=== PATIENT | female | born 1990 | race Caucasian/White ===

== ENCOUNTER 2018-11-29 17:43 | Inpatient (IN) ==
[2018-11-29] MEDS ORDERED: IOPAMIDOL 100 ML BOTTLE IV ONE (17:44)
[2018-11-29 18:27] LABS: Basophils # (Auto) 0 K/mcL (0.0-0.3); Basophils % (Auto) 0.3 % (0.0-2.0); Eosinophils # (Auto) 0.1 K/mcL (0.0-0.7); Eosinophils % (Auto) 0.7 % (0.0-7.0); Granulocytes % (Auto) 78.1 % (38.0-78.0); Lymphocytes # (Auto) 1.3 K/mcL (1.5-4.8); Lymphocytes % (Auto) 14.1 % (15.5-49.0); Mean Cell Volume 86.3 fL (80.0-100.0); Mean Corpuscular HGB Conc 33.9 g/dL (31.0-36.0); Monocytes # (Auto) 0.6 K/mcL (0.1-0.9); Monocytes % (Auto) 6.8 % (1.0-12.0); Platelet Count 281 K/mcL (140-440); RBC 4.23 M/mcL (4.00-5.20); Red Cell Distribution Width 12.8 % (11.5-14.5)
[2018-11-29] MEDS ORDERED: LACTATED RINGERS 1,000 ML IV ONE (18:41)
[2018-11-29 18:58] LABS: C-Reactive Protein 43.4 mg/dl (0.0-0.8)
[2018-11-29 19:00] LABS: ALT/SGPT 156 U/l (0-40); Albumin 3.6 gm/dL (3.2-5.2); Alkaline Phosphatase 139 U/L (39-117); Blood Urea Nitrogen 5 mg/dl (6-20)
[2018-11-29] MEDS ORDERED: 0.9 % SODIUM CHLORIDE 1,000 ML IV SCH (19:00)
[2018-11-29] MEDS ORDERED: HYDROmorphone 2 MG/ML VIAL IV PRN ×4 (19:02→23:58)
[2018-11-29] MEDS ORDERED: PIPERACILLIN SODIUM/TAZOBACTAM 3.375 GM in DEXTROSE 5% IN WATER 50 ML IV ONE (19:08)
--- NOTE | 2018-11-29 19:11 | Emergency Department Note ---
Abdominal Pain HPI - General Chief Complaint: Abdominal Pain Stated Complaint: right lower abd pain Time Seen by Provider: 11/29/18 18:14 Source: patient Mode of arrival: ambulatory Limitations: no limitations - History of Present Illness HPI Narrative: This pleasant 27-year-old female, 5 months , presented to the emergency room several days ago and has had ultrasound that was negative and several lab tests that were unremarkable. She presents today with persistence of pain into further her evaluation. Started with pain that was dull and achy 5 days ago primarily in the right upper quadrant. She also vomited with bilious vomiting in the emesis seem to go away. Last night she woke up with right lower quadrant pain that was quite severe and now seems to be a little bit better. She has not been able to eat or drink for a couple of days. Temperature earlier was 99.7. She has felt hot a lot and some sweatiness. REVIEW OF SYSTEMS: Denies chest pain, cough, shortness of breath. Has some nausea. No vomiting or diarrhea. Has not had a bowel movement for 5 days but has not eaten well. No dysuria, frequency or urgency. No headaches. Some lightheadedness. No anxiety or depression. Feels fatigued. 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 Denies: marijuana Physical Exam Limitations: no limitations General appearance: alert, in no apparent distress Head: atraumatic, normocephalic Eye: Present: EOMI Neck: Present: trachea midline. Absent: lymphadenopathy, thyromegaly Chest: Present: symmetric chest wall rise Respiratory: Present: normal lung sounds bilaterally. Absent: respiratory distress, wheezes, stridor, accessory muscle use, prolonged expiratory phase Cardiovascular: Present: regular rate, normal rhythm. Absent: systolic murmur, diastolic murmur Abdominal: Present: soft, tenderness, guarding, rebound (Both direct and contralateral radiating or stimulating pain into the right lower quadrant area.) , tenderness at McBurney's Point, other (No tenderness with femur hyperextension except trace to mild and with internal and external rotation of a flexed femur. Heel tap is negative.). Absent: distention, rigidity Abdominal tenderness: Present: RLQ, moderate Extremities: Absent: pedal edema, pretibial edema, calf tenderness Neurological: Present: alert, oriented X3 Psychiatric: Present: normal affect, normal mood Skin: Present: warm, dry Course Course Narrative: CT scan with contrast ordered as well as labs. Vital Signs Temperature 99.7 F H 11/29/18 17:44 Pulse Rate 124 H 11/29/18 17:44 Respiratory Rate 20 11/29/18 17:44 Blood Pressure 116/62 11/29/18 17:44 Pulse Oximetry (%) 97 11/29/18 17:44 Temperature 99.7 F H 11/29/18 17:44 Pulse Rate 124 H 11/29/18 17:44 Respiratory Rate 20 11/29/18 17:44 Blood Pressure 131/88 11/29/18 19:01 Pulse Oximetry (%) 97 11/29/18 17:44 Abdominal Pain - Lab Data Lab results reviewed: Yes I reviewed the patient's lab results. Result diagrams: 11/29/18 18:02 11/29/18 18:02 Lab Results 11/29/18 11/29/18 11/29/18 Range/Units 18:02 18:02 18:14 WBC 9.0 (4.5-11.0) K/mcL RBC 4.23 (4.00-5.20) M/mcL Hgb 12.4 (12.0-15.0) g/dL Hct 36.4 (36.0-48.0) % MCV 86.3 (80.0-100.0) fL MCH 29.2 (26.0-34.0) pg MCHC 33.9 (31.0-36.0) g/dL RDW 12.8 (11.5-14.5) % Plt Count 281 (140-440) K/mcL MPV 7.9 (7.4-10.4) fL Gran % 78.1 H (38.0-78.0) % Lymph % (Auto) 14.1 L (15.5-49.0) % [place] % (Auto) 6.8 (1.0-12.0) % Eos % (Auto) 0.7 (0.0-7.0) % Baso % (Auto) 0.3 (0.0-2.0) % Gran # 7.0 (1.8-8.0) K/mcL Lymph # (Auto) 1.3 L (1.5-4.8) K/mcL [place] # (Auto) 0.6 (0.1-0.9) K/mcL Eos # (Auto) 0.1 (0.0-0.7) K/mcL Baso # (Auto) 0 (0.0-0.3) K/mcL Sodium 141 (133-145) mmol/L Potassium 3.1 L (3.3-5.1) mmol/L Chloride 101 (96-108) mmol/L Carbon Dioxide 25 (22-30) mmol/L Anion Gap 15.0 (8-16) BUN 5 L (6-20) mg/dl Creatinine 0.8 (0.6-1.1) mg/dl GFR Calculation 102 Glucose 105 (70-105) mg/dL Calcium 9.2 (8.6-10.4) mg/dl Total Bilirubin 0.7 (0.0-1.0) mg/dL AST 85 H (0-37) U/l ALT 156 H (0-40) U/l Alkaline Phosphatase 139 H (39-117) U/L C-Reactive Protein 43.4 H (0.0-0.8) mg/dl Total Protein 7.3 (5.9-8.4) gm/dL Albumin 3.6 (3.2-5.2) gm/dL Globulin 3.7 (2.2-3.7) gm/dL Albumin/Globulin Ratio 1.0 (1.0-2.3) Lipase 22 (7-60) U/L - Radiology Data Radiology results reviewed: Yes I reviewed the patient's radiology results. Disposition Pt seen by SOLIDWORKS DESIGNER/PA only: No Clinical Impression: Acute appendicitis with appendiceal abscess Summary: I spoke with Dr. Salvador, general surgeon, who was in the emergency room and willing to see patient. Patient made aware and is appreciative and willing. Disposition: Xfer As Inpt ([facility]) Condition: Fair Referrals: Vidal Gavin ARNP [Primary Care Provider] -
--- NOTE | 2018-11-29 19:15 | General Surg History&Physical ---
History of Present Illness Patient information: Note initiated : 11/29/18 at 7:11 pm Service Date, if different from initiated Date: [] Patient: Naomi Corrales 27 y/o F admitted on for right lower abd pain. Chief Complaint: [] Chief complaint: Abdominal pain HPI: Ms. Corrales is a 27 year old Female who complains of 5 day history of abdominal pain, initially right upper quadrant, 6-8 /10 nonradiating. She subsequently underwent an ultrasound on 11/25/18 which showed a normal gallbladder and appendix. Her pain increased since yesterday and then the pain suddenly improved today. She undewent a CT scan today which showed an acutely perforated appendix. She is currently breast feeding having underwent a c section 5 months ago. Last meal today at 4pm. Review of Systems - Constitutional fever(s) (felt warm), no anorexia, no chills, no fatigue, no night sweats - EENT Nose, mouth and throat: no nasal congestion - Breasts other (lactating) - Cardiovascular no chest pain, no dyspnea - Respiratory no hemoptysis, no wheezing - Gastrointestinal abdominal pain, nausea, no vomiting - Genitourinary Genitourinary: no dysuria - Integumentary no rash - Neurological headache(s) - Psychiatric no depression Past History Past medical history: Denies any past medical history Past surgical history: 2018 Past family history: denies any family history of cancers orDM Past social history: Denies nicotine use. Denies ETOH or recreational drug use Medications and Allergies Home Medications Medication Instructions Recorded Confirmed Type HYDROmorphone HCL [Dilaudid] 2 mg PO Q4-6HP PRN #20 tab 11/25/18 11/29/18 Rx Ondansetron HCl [Zofran ODT] 4 mg SL Q4-6HP PRN #20 tab 11/25/18 11/29/18 Rx Allergies Allergy/AdvReac Type Severity Reaction Status Date / Time hydrocodone Allergy Intermediate Facial Verified 11/29/18 17:47 Swelling Exam Temp Pulse Resp BP Pulse Ox 99.7 F H 124 H 20 131/88 97 11/29/18 17:44 11/29/18 17:44 11/29/18 17:44 11/29/18 19:01 11/29/18 17:44 - General physical appearance well nourished, no distress - Eyes PERRL, normal ocular movement - ENT normal mucosa - Head Head exam IM: Present: atraumatic, normal inspection - Neck trachea midline - Cardiovascular Cardiovascular exam IM: Present: normal rate and rhythm - Respiratory clear to auscultation - Abdomen Abdomen: Present: soft (+ TTP RLQ. + Rosving. Non distended no guarding) - Genitourinary Present: normal external genitalia - Rectum Rectum: Present: other (exam deferred) - Integumentary Present: no rash - Neurologic Present: normal sensation - Musculoskeletal Present: normal gait - Psychiatric Present: oriented to time, oriented to person, oriented to place Results - Results CT scan - abdomen: image reviewed (Enlarged appendix with fecolith, with fat stranding possible perforation. Official read to follow) Assessment and Plan (1) Acute appendicitis 27 yo female with acute appendicits possibly perforated acutely Admit to surgical service. Zosyn. IV hydration OR for laparoscopic Status: Acute
[2018-11-29 19:31] LABS: Appearance,Urine CLEAR; Bacteria,Urine 0 /hpf (0); Bilirubin,Urine NEG (NEG); Color,Urine YELLOW; Glucose,Urine (UA) NEGATIVE (NEG); Leukocyte Esterase,Urine NEG /uL (NEG); Mucus,Urine FEW /hpf (0); Protein,Urine NEG (NEG); Specific Gravity,Urine 1.035 (1.000-1.035); Urine Blood 0.03 mg/dL (<0.03); Urine RBC 0 /hpf (0-1); Urine Squamous Epithelial Cell 1 /hpf (0-4); Urine Transitional Epi Cells < 1 /hpf (0-2); Urine WBC 6 /hpf (0-4)
[2018-11-29] MEDS ORDERED: KETOROLAC 30 MG/ML VIAL ONE (19:53)
[2018-11-29] MEDS ORDERED: NEOSTIGMINE 1 MG/ML VIAL ONE (19:53)
[2018-11-29] MEDS ORDERED: HYDROmorphone 2 MG/ML VIAL ONE (19:53)
[2018-11-29] MEDS ORDERED: SUCCINYLCHOLINE 20 MG/ML ML IV ONE (19:53)
[2018-11-29] MEDS ORDERED: fentaNYL 100 MCG/2 ML VIAL IV ONE (19:53)
[2018-11-29] MEDS ORDERED: KETAMINE 10 MG/ML ML ONE (19:53)
[2018-11-29] MEDS ORDERED: ROCURONIUM 10 MG/ML ML IV ONE (19:53)
[2018-11-29] MEDS ORDERED: PHENYLEPHRINE 10 MG/ML VIAL ONE (19:53)
[2018-11-29] MEDS ORDERED: LIDOCAINE HCL/PF 100 MG/5 ML SYRINGE IV ONE (19:53)
[2018-11-29] MEDS ORDERED: PROPOFOL 200 MG/20 ML VIAL IV ONE (19:53)
[2018-11-29] MEDS ORDERED: DEXAMETHASONE 10 MG/ML VIAL ONE (19:53)
[2018-11-29] MEDS ORDERED: GLYCOPYRROLATE 0.2 MG/ML VIAL IV ONE (19:53)
[2018-11-29] MEDS ORDERED: MIDAZOLAM 5 MG/5 ML VIAL ONE (19:53)
[2018-11-29] MEDS ORDERED: ONDANSETRON 4 MG/2 ML VIAL ONE ×2 (19:53→23:27)
[2018-11-29] MEDS ORDERED: BUPIVACAINE W/EPI 0.5% 50 ML VIAL IJ ONE (20:10)
[2018-11-29] MEDS ORDERED: METHOCARBAMOL 1,000 MG/10 ML VIAL IV PRN ×2 (20:38→22:07)
[2018-11-29] MEDS ORDERED: IPRATROPIUM/ALBUTEROL 3 ML AMPUL.NEB NEB PRN ×2 (20:38→22:07)
[2018-11-29] MEDS ORDERED: FLUMAZENIL 0.1 MG/ML ML IV PRN ×2 (20:38→22:07)
[2018-11-29] MEDS ORDERED: PROMETHAZINE 25 MG/ML VIAL IV PRN ×2 (20:38→22:07)
[2018-11-29] MEDS ORDERED: BENZOCAINE/MENTHOL 1 LOZENGE PO PRN ×3 (20:38→23:58)
[2018-11-29] MEDS ORDERED: MEPERIDINE 50 MG/ML INJECTION IM PRN ×2 (20:38→22:07)
[2018-11-29] MEDS ORDERED: LACTATED RINGERS 250 ML IV PRN ×2 (20:38→22:07)
[2018-11-29] MEDS ORDERED: ACETAMINOPHEN 1,000 MG/100 ML BOTTLE IV ONE ×2 (20:38→22:07)
[2018-11-29] MEDS ORDERED: PROMETHAZINE 25 MG/ML VIAL IM PRN ×2 (20:38→22:07)
[2018-11-29] MEDS ORDERED: fentaNYL 100 MCG/2 ML VIAL IV PRN ×2 (20:38→22:07)
[2018-11-29] MEDS ORDERED: NALOXONE HCL 0.4 MG/ML VIAL IV PRN ×3 (20:38→23:58)
[2018-11-29] MEDS ORDERED: ONDANSETRON 4 MG/2 ML VIAL IV PRN ×3 (20:38→23:58)
[2018-11-29] MEDS ORDERED: MEPERIDINE 25 MG/ML SYRINGE IV PRN ×2 (20:38→22:07)
[2018-11-29] MEDS ORDERED: LACTATED RINGERS 1,000 ML IV SCH ×3 (20:45→22:15)
[2018-11-29] MEDS ORDERED: FAMOTIDINE/PF 20 MG/2 ML VIAL IV SCH (21:00)
[2018-11-29] MEDS ORDERED: 0.9 % SODIUM CHLORIDE 10 ML SYRINGE IV SCH (22:00)
--- NOTE | 2018-11-29 23:01 | General Surgery Procedure Note ---
Date of procedure: Note initiated : 11/29/18 at 10:58 pm Service Date, if different from initiated Date: [] Pre-op diagnosis: Acute appendicitis Post-op diagnosis: other (Acute perforated purulent appendicits with localized peritonitis) Procedure: Laparoscopic converted to open appendectomy Findings: Retrocecal Perforated appendix with purulence and localized peritonitis Anesthesia: GETA Surgeon: River Salvador Estimated blood loss: 20 (20 mL) Pathology: other (Appendix, apendiceal fluid culture) Description of procedure: See operative report for details Condition: other (guarded) Disposition: ICU
[2018-11-29] MEDS ORDERED: MEPERIDINE 50 MG/ML INJECTION ONE (23:33)
[2018-11-29] MEDS ORDERED: PROMETHAZINE 25 MG/ML VIAL ONE (23:34)
[2018-11-29] MEDS ORDERED: HYDROmorphone PCA 30 MG/30 ML PCA.VIAL IV ONE (23:40)
--- NOTE | 2018-11-29 23:56 | Operative Note ---
Pre-op diagnosis: Acute appendicitis Post-op diagnosis: perforated purulent appendicitis with localized peritonitis Procedure: Laparoscopic Appendectomy converted to open Surgeon: River Salvador Lead Applications Developer: No Anesthesia: GETA Findings: Perforated appendicitis with localized peritonitis Specimens Removed/Pathology: Appendix, intraabdominal fluid culture Estimated blood loss (cc): 20 mL Complications: none INDICATION: This a 27 yo female who complains of 5 day history of abdominal pain , initially right upper quadrant, 6-8 /10 nonradiating. She subsequently underwent an ultrasound on 11/25/18 which showed a normal gallbladder and normal appendix. Her pain increased since yesterday and then the pain suddenly improved today. She undewent a CT scan today which showed an acutely perforated appendix. The risks and benefits of the procedure were discussed in layman's terms with the patient including but not limited to: risk of bleeding, infection , bowel injury requiring a bigger surgery, injury to other organs, future hernia 's or scars, skin infections or intrabdominal infections including abscess requiring drainage. All questions were answered and consent was obtained. DESCRIPTION OF PROCEDURE: The patient was brought to the operating room and placed supine on the operating table. After undergoing anesthesia, a eastman was placed and perioperative antibiotics had been given. Her abdomen was prepped and draped in a standard sterile fashion using DuraPrep. A 5 mm Optiview trocar was placed in the supraumbilical position under direct vision. Trocars were then placed: A 12mm left lower quadrant, a 5mm right lower quadrant and a under direct vision without any signs of injury to organs. There appeared to be a localized peritonitis with the appendix retrocecal. There was a small pocket of purulence in the right pericolic gutter walled off. The appendix base was mobilized, however the tip was not identified so the procedure was converted to open with an approximately 8 cm right lower quadrant horizontal skin incision made with a #15 blade. The incision was carried down to the fascia where a Metzenbaum scissor was used to cut the fascia the muscle was split between fibers. using mets the abdomen was entered and the peritoneum incision lengthened while protecting bowel. The cecum was identified and eviscerated to inspect the appendix. The appendix was retrocecal and a small perforation on the cecum was noted near the tip of the appendix. An Endoloop was placed on the appendix followed by the white load of the laparoscopic stapler, and a ligasure was used on the mesoappendix. Cultures were obtained. The appendix appeared to have a large perforation and was passed off the field. The Cecum and terminal ileum was inspected and some portions were noted to have some friability and a small serosal tear noted on the terminal ileum which was repaired with 3-0 silk sutures. The posterior cecum was inspected and the small perforation was repaired with double layer of 3-0 silk lambert sutures, then tested under water with no air bubbles noted. The cecum was placed back into the abdomen, Copious irrigation was performed over 5 liters and suctioned dry. Two Roel drains were placed, one in the pelvis and one along the right parietal wall and tied to the skin with nylon. The left trocar site was closed with 0-vicryl suture. The peritoneum was closed with 0-vicryl, followed by a fascial closure of 0-loop PDS , then vicryl for interrupted subcutaneous sutures. The abdomen was washed and dried and the left port site and then the right surgical site were loosely approximated with danielle and packed with packing. Sterile gauze dressing & tegaderm were used for dressing. All counts correct. The patient tolerated the procedure well, and extubated and sent to PACU
[2018-11-29] MEDS ORDERED: HYDROmorphone PCA 30 MG/30 ML PCA.VIAL IV PRN (23:58)
[2018-11-30] MEDS ORDERED: PIPERACILLIN SODIUM/TAZOBACTAM 3.375 GM in DEXTROSE 5% IN WATER 50 ML IV SCH
[2018-11-30] MEDS: LACTATED RINGERS 1,000 ML IV SCH ×5 (00:13→21:27)
[2018-11-30] MEDS ORDERED: POTASSIUM CHLORIDE 40 MEQ in DEXTROSE 5% IN WATER 500 ML IV ONE (00:30)
[2018-11-30] MEDS: PIPERACILLIN SODIUM/TAZOBACTAM 3.375 GM in DEXTROSE 5% IN WATER 50 ML IV SCH ×4 (00:45→17:39)
[2018-11-30] MEDS ORDERED: ENOXAPARIN 40 MG/0.4 ML SYRINGE ONE (01:29)
[2018-11-30] MEDS: ENOXAPARIN 40 MG/0.4 ML SYRINGE SQ SCH ×2 (01:30→09:11)
[2018-11-30] MEDS ORDERED: HYDROmorphone 2 MG/ML VIAL ONE ×2 (04:13→06:56)
[2018-11-30 05:47] LABS: Basophils # (Auto) 0 K/mcL (0.0-0.3); Basophils % (Auto) 0 % (0.0-2.0); Eosinophils # (Auto) 0 K/mcL (0.0-0.7); Eosinophils % (Auto) 0.1 % (0.0-7.0); Granulocytes % (Auto) 86.5 % (38.0-78.0); Lymphocytes # (Auto) 0.3 K/mcL (1.5-4.8); Lymphocytes % (Auto) 4.5 % (15.5-49.0); Mean Cell Volume 85.3 fL (80.0-100.0); Mean Corpuscular HGB Conc 34.8 g/dL (31.0-36.0); Monocytes # (Auto) 0.5 K/mcL (0.1-0.9); Monocytes % (Auto) 8.9 % (1.0-12.0); Platelet Count 228 K/mcL (140-440); Red Cell Distribution Width 12.7 % (11.5-14.5)
[2018-11-30] MEDS: 0.9 % SODIUM CHLORIDE 10 ML SYRINGE IV SCH ×3 (06:12→21:32)
[2018-11-30 06:36] LABS: Blood Urea Nitrogen 5 mg/dl (6-20)
[2018-11-30] MEDS: KETOROLAC 15 MG/ML VIAL IV PRN ×3 (07:19→21:50)
[2018-11-30] MEDS ORDERED: ACETAMINOPHEN 1,000 MG/100 ML BOTTLE IV ONE (07:56)
--- NOTE | 2018-11-30 08:05 | General Surgery Progress Note ---
Subjective Patient reports: pain is less (patient seen postop,No current complaints good urine output. CAROLINA Drains serosanguenous. Pain controlled.) Narrative: Note initiated : 11/30/18 at 7:59 am Service Date, if different from initiated Date: [] Patient: Naomi Corrales 27 y/o F admitted on 11/29/18 for right lower abd pain. POST OP NOTE Pertinent ROS: No N/V/D, No F/C minimal abdominal pain currently Objective Temp Pulse Resp BP Pulse Ox 98.9 F 85 18 99/70 96 11/30/18 04:00 11/30/18 06:02 11/30/18 07:30 11/30/18 06:01 11/30/18 06:02 - Additional Data Intake & Output - Last 24 hours: Intake & Output 11/28/18 11/29/18 11/30/18 12/01/18 05:59 05:59 05:59 05:59 Intake Total 3849 / 3849 50 / 50 Output Total 2135 / 2135 Balance 1714 / 1714 50 / 50 Weight 168 lb 14.4 oz - General physical appearance well developed, well nourished, no distress - Eyes normal ocular movement - ENT normal mucosa - Neck trachea midline - Respiratory normal respiratory effort, clear to auscultation - Abdomen soft (Surgical dressings in place. CAROLINA drains functioning. Appropriate TTP post- surgical abdomen) - Integumentary no rash - Neurologic normal sensation - Psychiatric oriented to time, oriented to person, oriented to place - Labs 11/30/18 04:08 11/30/18 04:08 Diabetes panel 11/29/18 11/30/18 Range/Units 18:02 04:08 Sodium 141 140 (133-145) mmol/L Potassium 3.1 L 3.9 (3.3-5.1) mmol/L Chloride 101 103 (96-108) mmol/L Carbon Dioxide 25 24 (22-30) mmol/L BUN 5 L 5 L (6-20) mg/dl Creatinine 0.8 0.6 (0.6-1.1) mg/dl Glucose 105 189 H (70-105) mg/dL Calcium 9.2 8.2 L (8.6-10.4) mg/dl AST 85 H (0-37) U/l ALT 156 H (0-40) U/l Alkaline Phosphatase 139 H (39-117) U/L Total Protein 7.3 (5.9-8.4) gm/dL Albumin 3.6 (3.2-5.2) gm/dL Calcium panel 11/29/18 11/30/18 Range/Units 18:02 04:08 Calcium 9.2 8.2 L (8.6-10.4) mg/dl Phosphorus 5.3 H (2.7-4.5) mg/dL Albumin 3.6 (3.2-5.2) gm/dL Pituitary panel 11/29/18 11/30/18 Range/Units 18:02 04:08 Sodium 141 140 (133-145) mmol/L Potassium 3.1 L 3.9 (3.3-5.1) mmol/L Chloride 101 103 (96-108) mmol/L Carbon Dioxide 25 24 (22-30) mmol/L BUN 5 L 5 L (6-20) mg/dl Creatinine 0.8 0.6 (0.6-1.1) mg/dl Glucose 105 189 H (70-105) mg/dL Calcium 9.2 8.2 L (8.6-10.4) mg/dl Adrenal panel 11/29/18 11/30/18 Range/Units 18:02 04:08 Sodium 141 140 (133-145) mmol/L Potassium 3.1 L 3.9 (3.3-5.1) mmol/L Chloride 101 103 (96-108) mmol/L Carbon Dioxide 25 24 (22-30) mmol/L BUN 5 L 5 L (6-20) mg/dl Creatinine 0.8 0.6 (0.6-1.1) mg/dl Glucose 105 189 H (70-105) mg/dL Calcium 9.2 8.2 L (8.6-10.4) mg/dl Total Bilirubin 0.7 (0.0-1.0) mg/dL AST 85 H (0-37) U/l ALT 156 H (0-40) U/l Alkaline Phosphatase 139 H (39-117) U/L Total Protein 7.3 (5.9-8.4) gm/dL Albumin 3.6 (3.2-5.2) gm/dL Assessment and Plan (1) Acute appendicitis with perforation, localized peritonitis, and abscess Status: Acute Current Visit: Yes (2) Acute appendicitis Status: Acute Current Visit: Yes (3) Appendicolith Status: Acute Current Visit: Yes - Narrative A/P Narrative: 27 yo female with Perforated purulent acute appendicitis with appendicolith and localized peritonitis Neuro: Continue IV Tylenol and Toradol standing, 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 Cardiovascular: Continuous cardiac monitoring, Pulm: Continue incentive spirometer. O2 2 L NC prn GI: Continue famotidine. Continue Reglan & zofran prn. Continue jps to bulb suction. ID: Continue Zosyn. : Continue Vega for hemodynamic monitoring ENDO: Stable Hemonc: Stable MSK: Stable. Will obtain PT consult FEN: Continue IV Hydration, Multivitamins, am labs, OOB to chair, replace electrolytes prn. Patient to pump and dump breast milk GI Prophylaxis: Protonix DVT Prophylaxis: SCD's lovenox Condition: guarded Disposition: Continue ICU today - Time Spent With Patient Total time spent is greater than 50% in coordination of care (as documented) at patient's floor/unit and/or counseling patient:
[2018-11-30] MEDS ORDERED: MAGNESIUM SULFATE 8.12 MEQ in DEXTROSE 5% IN WATER 50 ML IV ONE (08:17)
--- NOTE | 2018-11-30 08:18 | General Surgery Progress Note ---
Subjective Patient reports: still having pain (patient seen bedside. Pain somewhat controlled with HEAD STOCK OPERATOR dosage adjusted. No Flatus. CAROLINA Drains with serosanguenous output.) Narrative: Note initiated : 11/30/18 at 8:14 am Service Date, if different from initiated Date: [] Patient: Naomi Corrales 27 y/o F admitted on 11/29/18 for right lower abd pain. Chief Complaint: [] Pertinent ROS: No N/V/D, No Flatus, No CP or SOB Objective Temp Pulse Resp BP Pulse Ox 98.9 F 85 18 99/70 96 11/30/18 04:00 11/30/18 06:02 11/30/18 07:30 11/30/18 06:01 11/30/18 06:02 - Additional Data Intake & Output - Last 24 hours: Intake & Output 11/28/18 11/29/18 11/30/18 12/01/18 05:59 05:59 05:59 05:59 Intake Total 3849 / 3849 50 / 50 Output Total 2135 / 2135 45 / 45 Balance 1714 / 1714 5 / 5 Weight 168 lb 14.4 oz - General physical appearance no distress - Eyes normal ocular movement - ENT normal mucosa - Neck trachea midline - Respiratory clear to auscultation - Cardiovascular Cardiovascular exam: Present: normal rate and rhythm - Abdomen soft (Non distended, no rebound or guarding. CAROLINA drains in place functioning serosanguenous output. Appropriate TTP) - Integumentary no rash - Psychiatric oriented to time, oriented to person, oriented to place - Additional Exam No LE edema, Non-TTP - Labs 11/30/18 04:08 11/30/18 04:08 Diabetes panel 11/29/18 11/30/18 Range/Units 18:02 04:08 Sodium 141 140 (133-145) mmol/L Potassium 3.1 L 3.9 (3.3-5.1) mmol/L Chloride 101 103 (96-108) mmol/L Carbon Dioxide 25 24 (22-30) mmol/L BUN 5 L 5 L (6-20) mg/dl Creatinine 0.8 0.6 (0.6-1.1) mg/dl Glucose 105 189 H (70-105) mg/dL Calcium 9.2 8.2 L (8.6-10.4) mg/dl AST 85 H (0-37) U/l ALT 156 H (0-40) U/l Alkaline Phosphatase 139 H (39-117) U/L Total Protein 7.3 (5.9-8.4) gm/dL Albumin 3.6 (3.2-5.2) gm/dL Calcium panel 11/29/18 11/30/18 Range/Units 18:02 04:08 Calcium 9.2 8.2 L (8.6-10.4) mg/dl Phosphorus 5.3 H (2.7-4.5) mg/dL Albumin 3.6 (3.2-5.2) gm/dL Pituitary panel 11/29/18 11/30/18 Range/Units 18:02 04:08 Sodium 141 140 (133-145) mmol/L Potassium 3.1 L 3.9 (3.3-5.1) mmol/L Chloride 101 103 (96-108) mmol/L Carbon Dioxide 25 24 (22-30) mmol/L BUN 5 L 5 L (6-20) mg/dl Creatinine 0.8 0.6 (0.6-1.1) mg/dl Glucose 105 189 H (70-105) mg/dL Calcium 9.2 8.2 L (8.6-10.4) mg/dl Adrenal panel 11/29/18 11/30/18 Range/Units 18:02 04:08 Sodium 141 140 (133-145) mmol/L Potassium 3.1 L 3.9 (3.3-5.1) mmol/L Chloride 101 103 (96-108) mmol/L Carbon Dioxide 25 24 (22-30) mmol/L BUN 5 L 5 L (6-20) mg/dl Creatinine 0.8 0.6 (0.6-1.1) mg/dl Glucose 105 189 H (70-105) mg/dL Calcium 9.2 8.2 L (8.6-10.4) mg/dl Total Bilirubin 0.7 (0.0-1.0) mg/dL AST 85 H (0-37) U/l ALT 156 H (0-40) U/l Alkaline Phosphatase 139 H (39-117) U/L Total Protein 7.3 (5.9-8.4) gm/dL Albumin 3.6 (3.2-5.2) gm/dL Assessment and Plan (1) Acute appendicitis with perforation, localized peritonitis, and abscess Status: Acute Current Visit: Yes (2) Acute appendicitis Status: Acute Current Visit: Yes (3) Appendicolith Status: Acute Current Visit: Yes - Narrative A/P Narrative: A/P Narrative: 27 yo female POD #1 with Perforated purulent acute appendicitis with appendicolith and localized peritonitis Neuro: Continue IV Tylenol and Toradol standing, Dilaudid HEAD STOCK OPERATOR. Cardiovascular: Stable. Continuous cardiac monitoring Pulm: Continue incentive spirometer. O2 2 L NC prn GI: Continue famotidine. Continue Reglan & zofran prn. Continue jps to bulb suction. ID: Continue Zosyn. Cultures pending : Continue Vega for hemodynamic monitoring ENDO: Stable Hemonc: Stable. MSK: Stable. Will obtain PT consult FEN: Continue IV Hydration, Multivitamins, am labs, OOB to chair, replace electrolytes prn. Patient to pump and dump breast milk GI Prophylaxis: Protonix DVT Prophylaxis: SCD's lovenox Condition: guarded Disposition: Continue ICU today - Time Spent With Patient Total time spent is greater than 50% in coordination of care (as documented) at patient's floor/unit and/or counseling patient:
[2018-11-30 08:43] LABS: Blood Urea Nitrogen 4 mg/dl (6-20)
--- NOTE | 2018-11-30 08:50 | Cat Scan Report ---
CLINICAL INFORMATION: Fever and right lower quadrant pain consistent with appendicitis COMPARISON: Ultrasound on 11/25/18 TECHNIQUE: Following injection of intravenous contrast the patient was scanned during the portal venous phase from the diaphragm through the symphysis pubis. Sagittal and coronal reformats were created.. The radiation exposure was limited using dose reduction technology. FINDINGS: Thin bands of discoid atelectasis are present in the posterior basal segment of the left lower lobe area The liver is normal in size. There is focal fatty infiltration in the lateral segment of the left lobe of the liver. This is an incidental finding. The gallbladder is normal and there are no stones or dilatation of the bile ducts. The spleen is normal in size and homogeneous. The pancreas, adrenals and left kidney are normal. There is a 1.2 cm simple cyst in the upper third of the right kidney. The right kidney is otherwise normal. The appendix is enlarged and inflamed. It Measures up to 1.4 cm in diameter. Within it there is a 9 mm appendicolith. Surrounding the appendix there is a periappendiceal abscess. This has poorly defined borders and measures up to 5 cm in width. No free intraperitoneal air or ascites are present. Inflammation partially surrounds the temporal ileum. There is no bowel obstruction. No adenopathy is present. Urinary bladder is normal. There is an IUD within a retroverted uterus. The ovaries are normal. IMPRESSION: Acute appendicitis with a periappendiceal abscess. Dr. James was called with the results Interpreted and Authenticated by: Arian Hicks 11/30/18
[2018-11-30] MEDS ORDERED: ENOXAPARIN 40 MG/0.4 ML SYRINGE SQ SCH (09:00)
--- NOTE | 2018-11-30 09:00 | XRay Report ---
HISTORY: Acute appendicitis, verify sponge count FINDINGS: There are two surgical drains in the pelvis. One is located in the midline and the other is in the right lower quadrant. There is also a nasogastric tube within the stomach. Surgical skin danielle are present on both sides of the pelvis. There is no evidence of a retained sponge or surgical instrument. IMPRESSION: Normal exam following appendectomy Interpreted and Authenticated by: Arian Hicks 11/30/18
[2018-11-30] MEDS: FAMOTIDINE/PF 20 MG/2 ML VIAL IV SCH ×2 (09:24→21:31)
[2018-11-30] MEDS ORDERED: HYDROmorphone PCA 30 MG/30 ML PCA.VIAL IV PRN (15:25)
[2018-11-30] MEDS ORDERED: ENOXAPARIN 40 MG/0.4 ML SYRINGE SQ ONE (16:00)
[2018-11-30] MEDS: ACETAMINOPHEN 1,000 MG/100 ML BOTTLE IV PRN (17:00)
[2018-11-30] MEDS ORDERED: diphenhydrAMINE 50 MG/ML VIAL IV PRN (17:27)
--- NOTE | 2018-11-30 17:36 | General Surgery Progress Note ---
Subjective Patient reports: pain is less (Patient seen on PM rounds. Pain better controlled. C/o of itchiness on face. No SOB/CP or lip swelling. Has had dilaudid in past without reaction. Making good urine output. was OOB to chair. No events reported by RN.) Narrative: Note initiated : 11/30/18 at 5:33 pm Service Date, if different from initiated Date: [] Patient: Naomi Corrales 27 y/o F admitted on 11/29/18 for right lower abd pain. Chief Complaint: [] Pertinent ROS: + itchiness, No SOB/CP, No N/V/D, No F/C/NS. Abdominal pain well controlled. Objective Temp Pulse Resp BP Pulse Ox 97.1 F 107 H 26 H 118/80 96 11/30/18 11:33 11/30/18 16:00 11/30/18 16:00 11/30/18 14:30 11/30/18 16:00 - Additional Data Intake & Output - Last 24 hours: Intake & Output 11/28/18 11/29/18 11/30/18 12/01/18 05:59 05:59 05:59 05:59 Intake Total 3949 / 3949 1772 / 1772 Output Total 2135 / 2135 580 / 580 Balance 1814 / 1814 1192 / 1192 Weight 168 lb 14.4 oz - General physical appearance well developed, well nourished, no distress - Eyes normal ocular movement - ENT normal mucosa (No angioedema) - Neck trachea midline - Respiratory normal expansion, normal respiratory effort - Cardiovascular Cardiovascular exam: Present: normal rate and rhythm - Abdomen soft (ND, No rebound or guarding. Appropriated TTP postop. CAR[place] drains with serosanguenous output) - Integumentary no rash (facial erythema in rosacea like pattern) - Neurologic normal sensation - Psychiatric oriented to time, oriented to person, oriented to place, speech is normal, memory intact - Labs 11/30/18 04:08 11/30/18 07:32 Diabetes panel 11/29/18 11/30/18 11/30/18 Range/Units 18:02 04:08 07:32 Sodium 141 140 140 (133-145) mmol/L Potassium 3.1 L 3.9 3.7 (3.3-5.1) mmol/L Chloride 101 103 103 (96-108) mmol/L Carbon Dioxide 25 24 26 (22-30) mmol/L BUN 5 L 5 L 4 L (6-20) mg/dl Creatinine 0.8 0.6 0.6 (0.6-1.1) mg/dl Glucose 105 189 H 176 H (70-105) mg/dL Calcium 9.2 8.2 L 8.5 L (8.6-10.4) mg/dl AST 85 H (0-37) U/l ALT 156 H (0-40) U/l Alkaline Phosphatase 139 H (39-117) U/L Total Protein 7.3 (5.9-8.4) gm/dL Albumin 3.6 (3.2-5.2) gm/dL Calcium panel 11/29/18 11/30/18 11/30/18 Range/Units 18:02 04:08 07:32 Calcium 9.2 8.2 L 8.5 L (8.6-10.4) mg/dl Phosphorus 5.3 H (2.7-4.5) mg/dL Albumin 3.6 (3.2-5.2) gm/dL Pituitary panel 11/29/18 11/30/18 11/30/18 Range/Units 18:02 04:08 07:32 Sodium 141 140 140 (133-145) mmol/L Potassium 3.1 L 3.9 3.7 (3.3-5.1) mmol/L Chloride 101 103 103 (96-108) mmol/L Carbon Dioxide 25 24 26 (22-30) mmol/L BUN 5 L 5 L 4 L (6-20) mg/dl Creatinine 0.8 0.6 0.6 (0.6-1.1) mg/dl Glucose 105 189 H 176 H (70-105) mg/dL Calcium 9.2 8.2 L 8.5 L (8.6-10.4) mg/dl Adrenal panel 11/29/18 11/30/18 11/30/18 Range/Units 18:02 04:08 07:32 Sodium 141 140 140 (133-145) mmol/L Potassium 3.1 L 3.9 3.7 (3.3-5.1) mmol/L Chloride 101 103 103 (96-108) mmol/L Carbon Dioxide 25 24 26 (22-30) mmol/L BUN 5 L 5 L 4 L (6-20) mg/dl Creatinine 0.8 0.6 0.6 (0.6-1.1) mg/dl Glucose 105 189 H 176 H (70-105) mg/dL Calcium 9.2 8.2 L 8.5 L (8.6-10.4) mg/dl Total Bilirubin 0.7 (0.0-1.0) mg/dL AST 85 H (0-37) U/l ALT 156 H (0-40) U/l Alkaline Phosphatase 139 H (39-117) U/L Total Protein 7.3 (5.9-8.4) gm/dL Albumin 3.6 (3.2-5.2) gm/dL Assessment and Plan (1) Acute appendicitis with perforation, localized peritonitis, and abscess Status: Acute Current Visit: Yes (2) Acute appendicitis Status: Acute Current Visit: Yes (3) Appendicolith Status: Acute Current Visit: Yes - Narrative A/P Narrative: 27 yo female POD #1laparoscopic converted to open appendectomy for Perforated purulent acute appendicitis with appendicolith and localized peritonitis Neuro: Continue IV Tylenol and Toradol standing, Dilaudid UTILITY HAND. Cardiovascular: Stable. Continuous cardiac monitoring Pulm: Continue incentive spirometer. O2 2 L NC prn GI: Continue famotidine. Continue Reglan & zofran prn. Continue jps to bulb suction. ID: Continue Zosyn. Cultures pending. Benadryl prn Itching : Continue Vega for hemodynamic monitoring ENDO: Stable Hemonc: Stable. MSK: Stable. Will obtain PT consult FEN: Continue IV Hydration, Multivitamins, am labs, OOB to chair, replace electrolytes prn. Patient to pump and dump breast milk GI Prophylaxis: Protonix DVT Prophylaxis: SCD's lovenox Condition: guarded Disposition: Continue ICU today - Time Spent With Patient Total time spent is greater than 50% in coordination of care (as documented) at patient's floor/unit and/or counseling patient:
[2018-11-30] MEDS ORDERED: diphenhydrAMINE 50 MG/ML VIAL ONE (17:48)
[2018-11-30] MEDS: 0.9 % SODIUM CHLORIDE 250 ML IV SCH (23:29)
[2018-12-01] MEDS: PIPERACILLIN SODIUM/TAZOBACTAM 3.375 GM in DEXTROSE 5% IN WATER 50 ML IV SCH ×4 (00:02→18:14)
[2018-12-01] MEDS: ACETAMINOPHEN 1,000 MG/100 ML BOTTLE IV PRN ×3 (00:03→16:17)
[2018-12-01] MEDS ORDERED: 0.9 % SODIUM CHLORIDE 1,000 ML IV ONE (00:45)
[2018-12-01] MEDS: KETOROLAC 15 MG/ML VIAL IV PRN ×2 (04:34→09:27)
[2018-12-01] MEDS: 0.9 % SODIUM CHLORIDE 10 ML SYRINGE IV SCH ×4 (05:04→13:33)
[2018-12-01 05:15] LABS: Basophils # (Auto) 0 K/mcL (0.0-0.3); Basophils % (Auto) 0.2 % (0.0-2.0); Eosinophils # (Auto) 0 K/mcL (0.0-0.7); Eosinophils % (Auto) 0.9 % (0.0-7.0); Granulocytes % (Auto) 67.8 % (38.0-78.0); Lymphocytes % (Auto) 20.2 % (15.5-49.0); Mean Cell Volume 86.1 fL (80.0-100.0); Mean Corpuscular HGB Conc 34.5 g/dL (31.0-36.0); Monocytes # (Auto) 0.5 K/mcL (0.1-0.9); Monocytes % (Auto) 10.9 % (1.0-12.0); Platelet Count 215 K/mcL (140-440); RBC 3.27 M/mcL (4.00-5.20); Red Cell Distribution Width 12.9 % (11.5-14.5)
[2018-12-01 05:43] LABS: ALT/SGPT 57 U/l (0-40); Albumin 2.5 gm/dL (3.2-5.2); Albumin/Globulin Ratio 0.8 (1.0-2.3); Alkaline Phosphatase 80 U/L (39-117); Blood Urea Nitrogen 7 mg/dl (6-20)
[2018-12-01] MEDS: FAMOTIDINE/PF 20 MG/2 ML VIAL IV SCH ×2 (08:24→21:48)
[2018-12-01] MEDS: LACTATED RINGERS 1,000 ML IV SCH ×2 (08:24)
[2018-12-01] MEDS ORDERED: ENOXAPARIN 40 MG/0.4 ML SYRINGE SQ SCH (09:00)
--- NOTE | 2018-12-01 10:43 | XRay Report ---
HISTORY: Follow-up atelectasis after appendectomy FINDINGS: There is minor atelectasis adjacent to the right diaphragm. The right diaphragm is mildly elevated. The lungs are otherwise clear and well expanded. No pleural effusion or free intra-abdominal air are present. The heart size and pulmonary vasculature are normal. IMPRESSION: Minor discoid atelectasis adjacent to an elevated right diaphragm Interpreted and Authenticated by: Arian Hicks 12/01/18
[2018-12-01] MEDS ORDERED: MIDAZOLAM 2 MG/2 ML VIAL IV ONE (10:53)
[2018-12-01] MEDS ORDERED: MIDAZOLAM 2 MG/2 ML VIAL ONE (10:54)
--- NOTE | 2018-12-01 10:54 | Surgical Pathology Report ---
HISTOLOGY SPECIMEN MICROSCOPIC DIAGNOSIS APPENDIX, APPENDECTOMY: -- SEVERE ACUTE APPENDICITIS WITH PERFORATION AND ACUTE SEROSITIS. (RLF:adj) PROCEDURAL IMPRESSION Acute appendicitis. GROSS DESCRIPTION Received in formalin, labeled appendix, is a 6.3 cm long, up to 1.7 cm diameter cowan-pink vermiform appendix. The external surface is maroon red, hemorrhagic and has fibrinopurulent exudate across approximately 60% of its surface. Located 3.2 cm from the tip and 2.1 cm from the staple line is an irregular 1.5 x 0.8 cm gross perforation. The margin is stapled with a 2.2 cm long staple line. The appendix is serially sectioned and a 0.6 cm long, 0.4 cm diameter cowan-brown fecalith is present immediately adjacent to the stapled margin. The remaining lumen contains cowan-yellow fibrinopurulent material. The site of perforation is a 0.8 x 0.8 x 0.6 cm red-brown possible abscess. The wall is on average 0.3 cm thick. Social Studies Department Chair sections are submitted in two cassettes. (DMT:adj) Electronically Signed by: Birgit Small M.D.
[2018-12-01] MEDS ORDERED: MAGNESIUM SULFATE 8.12 MEQ in DEXTROSE 5% IN WATER 50 ML IV ONE (11:38)
[2018-12-01] MEDS ORDERED: POTASSIUM CHLORIDE 20 MEQ in DEXTROSE 5% IN WATER 250 ML IV ONE (11:39)
[2018-12-01] MEDS ORDERED: DEXTROSE 5%-1/2NS W/20MEQ KCL 1,000 ML IV SCH (11:45)
--- NOTE | 2018-12-01 11:53 | General Surgery Progress Note ---
Subjective Patient reports: pain is less (Patient seen at bedside. States pain controlled. RN report rise in temp & tachycardia. CXR showed atelectasis. patient states itchiness much improved.) Narrative: Note initiated : 12/01/18 at 11:50 am Service Date, if different from initiated Date: [] Patient: Naomi Corrales 27 y/o F admitted on 11/29/18 for right lower abd pain. Chief Complaint: [] Pertinent ROS: Denies SOB, No CP. No N/V/D, No Flatus. Abdominal pain controlled with pain medications Objective Temp Pulse Resp BP Pulse Ox 99.9 F H 127 H 25 H 130/87 96 12/01/18 09:00 12/01/18 11:00 12/01/18 11:00 12/01/18 10:00 12/01/18 11:00 - Additional Data Intake & Output - Last 24 hours: Intake & Output 11/29/18 11/30/18 12/01/18 12/02/18 05:59 05:59 05:59 05:59 Intake Total 3949 / 3949 4833 / 4833 665 / 665 Output Total 2135 / 2135 1065 / 1065 605 / 605 Balance 1814 / 1814 3768 / 3768 60 / 60 Weight 168 lb 14.4 oz 166 lb 14.4 oz - General physical appearance well developed, well nourished, no distress - Eyes normal ocular movement - ENT normal mucosa - Neck trachea midline - Respiratory clear to auscultation - Cardiovascular Cardiovascular exam: Present: tachycardia - Abdomen soft (TTP appropriate post op. Voluntary guarding. No rebound. ND. CAROLINA's in place serous. no erythema or discharge. Surgical dressings changed. Packing changed.) - Labs 12/01/18 04:10 12/01/18 04:10 Diabetes panel 12/01/18 Range/Units 04:10 Sodium 145 (133-145) mmol/L Potassium 3.5 (3.3-5.1) mmol/L Chloride 105 (96-108) mmol/L Carbon Dioxide 28 (22-30) mmol/L BUN 7 (6-20) mg/dl Creatinine 0.6 (0.6-1.1) mg/dl Glucose 84 (70-105) mg/dL Calcium 8.2 L (8.6-10.4) mg/dl AST 13 (0-37) U/l ALT 57 H (0-40) U/l Alkaline Phosphatase 80 (39-117) U/L Total Protein 5.5 L (5.9-8.4) gm/dL Albumin 2.5 L (3.2-5.2) gm/dL Calcium panel 12/01/18 Range/Units 04:10 Calcium 8.2 L (8.6-10.4) mg/dl Phosphorus 4.3 (2.7-4.5) mg/dL Albumin 2.5 L (3.2-5.2) gm/dL Pituitary panel 12/01/18 Range/Units 04:10 Sodium 145 (133-145) mmol/L Potassium 3.5 (3.3-5.1) mmol/L Chloride 105 (96-108) mmol/L Carbon Dioxide 28 (22-30) mmol/L BUN 7 (6-20) mg/dl Creatinine 0.6 (0.6-1.1) mg/dl Glucose 84 (70-105) mg/dL Calcium 8.2 L (8.6-10.4) mg/dl Adrenal panel 12/01/18 Range/Units 04:10 Sodium 145 (133-145) mmol/L Potassium 3.5 (3.3-5.1) mmol/L Chloride 105 (96-108) mmol/L Carbon Dioxide 28 (22-30) mmol/L BUN 7 (6-20) mg/dl Creatinine 0.6 (0.6-1.1) mg/dl Glucose 84 (70-105) mg/dL Calcium 8.2 L (8.6-10.4) mg/dl Total Bilirubin 0.4 (0.0-1.0) mg/dL AST 13 (0-37) U/l ALT 57 H (0-40) U/l Alkaline Phosphatase 80 (39-117) U/L Total Protein 5.5 L (5.9-8.4) gm/dL Albumin 2.5 L (3.2-5.2) gm/dL Assessment and Plan (1) Acute appendicitis with perforation, localized peritonitis, and abscess Status: Acute Current Visit: Yes (2) Acute appendicitis Status: Acute Current Visit: Yes (3) Appendicolith Status: Acute Current Visit: Yes - Narrative A/P Narrative: 27 yo female POD #2 laparoscopic converted to open appendectomy for Perforated purulent acute appendicitis with appendicolith and localized peritonitis Neuro: Continue IV Tylenol and Toradol standing, Dilaudid CAN REPAIRER. Cardiovascular: Tachycardic. Continuous cardiac monitoring Pulm: Atelectasis. Continue incentive spirometer. O2 2 L NC prn GI: Sips of clears/ ice chips. Continue famotidine. Continue Reglan standing & zofran prn. Continue jps to bulb suction. KUB in am Surgical dressing changed and 1/4'' packing placed with new gauze dressing. ID: Continue Zosyn. Cultures pending. Benadryl prn Itching : Vega removed ENDO: Stable Hemonc: H&H trending down, likely dilutional will monitor. MSK: Stable. PT consult appreciated. FEN: D5 1/2NS +20K, Multivitamins, am labs, OOB to chair, replace electrolytes prn. Patient to pump and dump breast milk GI Prophylaxis: Protonix DVT Prophylaxis: SCD's lovenox Condition: guarded Disposition: Downgrade to Telemetry today. - Time Spent With Patient Total time spent is greater than 50% in coordination of care (as documented) at patient's floor/unit and/or counseling patient:
[2018-12-01] MEDS: 0.9 % SODIUM CHLORIDE 250 ML IV SCH ×2 (13:08→13:33)
[2018-12-01] MEDS ORDERED: HYDROmorphone PCA 30 MG/30 ML PCA.VIAL IV PRN ×2 (13:23→19:54)
[2018-12-01] MEDS ORDERED: KETOROLAC 15 MG/ML VIAL IV PRN (13:23)
[2018-12-01] MEDS: METOCLOPRAMIDE 10 MG/2 ML VIAL IV SCH ×2 (15:26→18:15)
[2018-12-01] MEDS: DEXTROSE 5%-1/2NS W/20MEQ KCL 1,000 ML IV SCH (15:34)
[2018-12-01 16:24] LABS: proBNP 808.5 pg/ml (0-125)
[2018-12-01] MEDS ORDERED: metroNIDAZOLE 500 MG/100 ML BAG IV SCH (17:00)
[2018-12-01] MEDS ORDERED: IOPAMIDOL 100 ML BOTTLE IV ONE (17:17)
--- NOTE | 2018-12-01 17:38 | General Surgery Progress Note ---
Subjective Patient reports: still having pain (Patient seen this afternoon. Has been spiking fevers and Tachycardic 120's- 130's. Denies SOB, has been on lovenox and ambulating. BNP was elevated so CTA obtained.), fever Narrative: Note initiated : 12/01/18 at 5:35 pm Service Date, if different from initiated Date: [] Patient: Naomi Corrales 27 y/o F admitted on 11/29/18 for right lower abd pain. Chief Complaint: [] Pertinent ROS: + Fever, Right sided tenderness, No N/V/D, No Chills No dysuria, leg pain no SOB or CP Objective Temp Pulse Resp BP Pulse Ox 100.3 F H 120 H 20 130/81 94 12/01/18 17:02 12/01/18 15:57 12/01/18 16:27 12/01/18 15:57 12/01/18 15:57 - Additional Data Intake & Output - Last 24 hours: Intake & Output 11/29/18 11/30/18 12/01/18 12/02/18 05:59 05:59 05:59 05:59 Intake Total 3949 / 3949 4833 / 4833 2393 / 2393 Output Total 2135 / 2135 1065 / 1065 980 / 980 Balance 1814 / 1814 3768 / 3768 1413 / 1413 Weight 168 lb 14.4 oz 166 lb 14.4 oz 166 lb 14.4 oz - General physical appearance well developed, well nourished, no distress, moderate pain - Eyes normal ocular movement - ENT normal mucosa - Neck trachea midline - Respiratory clear to auscultation - Cardiovascular Cardiovascular exam: Present: tachycardia - Abdomen soft (Mild distention, TTP right side, no rebound or guading. [place] drains functioning.) - Integumentary no rash - Psychiatric oriented to time, oriented to person, oriented to place - Labs 12/01/18 04:10 12/01/18 04:10 Diabetes panel 12/01/18 Range/Units 04:10 Sodium 145 (133-145) mmol/L Potassium 3.5 (3.3-5.1) mmol/L Chloride 105 (96-108) mmol/L Carbon Dioxide 28 (22-30) mmol/L BUN 7 (6-20) mg/dl Creatinine 0.6 (0.6-1.1) mg/dl Glucose 84 (70-105) mg/dL Calcium 8.2 L (8.6-10.4) mg/dl AST 13 (0-37) U/l ALT 57 H (0-40) U/l Alkaline Phosphatase 80 (39-117) U/L Total Protein 5.5 L (5.9-8.4) gm/dL Albumin 2.5 L (3.2-5.2) gm/dL Calcium panel 12/01/18 Range/Units 04:10 Calcium 8.2 L (8.6-10.4) mg/dl Phosphorus 4.3 (2.7-4.5) mg/dL Albumin 2.5 L (3.2-5.2) gm/dL Pituitary panel 12/01/18 Range/Units 04:10 Sodium 145 (133-145) mmol/L Potassium 3.5 (3.3-5.1) mmol/L Chloride 105 (96-108) mmol/L Carbon Dioxide 28 (22-30) mmol/L BUN 7 (6-20) mg/dl Creatinine 0.6 (0.6-1.1) mg/dl Glucose 84 (70-105) mg/dL Calcium 8.2 L (8.6-10.4) mg/dl Adrenal panel 12/01/18 Range/Units 04:10 Sodium 145 (133-145) mmol/L Potassium 3.5 (3.3-5.1) mmol/L Chloride 105 (96-108) mmol/L Carbon Dioxide 28 (22-30) mmol/L BUN 7 (6-20) mg/dl Creatinine 0.6 (0.6-1.1) mg/dl Glucose 84 (70-105) mg/dL Calcium 8.2 L (8.6-10.4) mg/dl Total Bilirubin 0.4 (0.0-1.0) mg/dL AST 13 (0-37) U/l ALT 57 H (0-40) U/l Alkaline Phosphatase 80 (39-117) U/L Total Protein 5.5 L (5.9-8.4) gm/dL Albumin 2.5 L (3.2-5.2) gm/dL - Imaging CT scan - abdomen: report reviewed, image reviewed CT scan - chest: report reviewed, image reviewed (No evidence of pulmonary Embolism, B/L pleural effusions & atelectasis. Inflammation and edema cecum, ileum no abscess.) Assessment and Plan (1) Acute appendicitis with perforation, localized peritonitis, and abscess Status: Acute Current Visit: Yes (2) Acute appendicitis Status: Acute Current Visit: Yes (3) Appendicolith Status: Acute Current Visit: Yes - Narrative A/P Narrative: 27 yo female POD #2 laparoscopic converted to open appendectomy for Perforated purulent acute appendicitis with appendicolith and localized peritonitis, now with tachycardia, fever spikes. Neuro: Continue IV Tylenol and Toradol standing, Dilaudid OPTICAL LENS MANUFACTURING TECH. Cardiovascular: Tachycardic. Continuous cardiac monitoring. fluid bolus PRN Pulm: Atelectasis. Continue incentive spirometer. O2 2 L NC prn. CTA negative for PE. GI: Sips of clears/ ice chips. Continue famotidine. Continue Reglan standing & zofran prn. Continue jps to bulb suction. KUB in am Surgical dressing changed and 1/4'' packing placed with new gauze dressing. ID: ID on case appreciated. Will obtain C diff swab, strat oral vancomycin. Continue Zosyn. Procalcitonin & lactic acid. Fever workup cultures pending. Benadryl prn Itching : stable ENDO: Stable Hemonc: H&H trending down, likely dilutional will monitor. MSK: Stable. PT consult appreciated. FEN: D5 1/2NS +20K, F Multivitamins, am labs, OOB to chair, replace electrolytes prn. Patient to pump and dump breast milk. Medical team on case appreciated. GI Prophylaxis: Protonix DVT Prophylaxis: SCD's lovenox Condition: guarded Disposition: Continue Telemetry. - Time Spent With Patient Total time spent is greater than 50% in coordination of care (as documented) at patient's floor/unit and/or counseling patient:
--- NOTE | 2018-12-01 17:40 | Internal Medicine Consult Note ---
Medical - CN: HPI - Data of Consult Consult date: 12/01/18 Requesting Physician: River Salvador DO Primary Care Provider: Vidal Gavin - Consult Narrative History of present illness: Ms. Corrales is a 27 year old F Who presented on the with severe abdominal pain which initially started 5 days earlier but woke up on this date severe pain. Presented to ED CT scan showed a perforated appendix. She was taken back to the OR for initial laparoscopic appendectomy and subsequently converted to open. During the surgery she was found to have perforated cecum as well with purulent appendicitis and localized peritonitis. Since then she started developed fevers and tachycardia today. She has some shortness of breath that associated with abdominal pain, and breathing shallow. Still has a lot of abdominal pain and has not maxed out the Dilaudid PIGS FEET CLEANER pump. Is felt that she might not be keeping on her pain. She is 5 months and breast-feeding. She is been on Zosyn as well as Flagyl. The Dilaudid PIGS FEET CLEANER pump and Tylenol Toradol as needed. Her blood pressure is good and her oxygenation is good as well, respiratory rate is around 20. She reports fevers and chills. No chest pain no headache no nausea vomiting. [place] anxious earlier but is feeling better at this time. Review of Systems: Pertinent positives as above . denies headache/nausea/vomiting/chest pain/ cough. 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 Denies: marijuana Past family history: denies any family history of cancers orDM Medical - CN: Meds Home Medications Medication Instructions Recorded Confirmed Type HYDROmorphone HCL [Dilaudid] 2 mg PO Q4-6HP PRN #20 tab 11/25/18 11/29/18 Rx Ondansetron HCl [Zofran ODT] 4 mg SL Q4-6HP PRN #20 tab 11/25/18 11/29/18 Rx [place]-3/Dha/Epa/Fish Oil [Fish Oil 1 each PO 11/30/18 History 1,000 mg Softgel] Allergies Allergy/AdvReac Type Severity Reaction Status Date / Time hydrocodone Allergy Intermediate Facial Verified 11/29/18 17:47 Swelling Medical - CN: Exam - Constitutional Vitals: Temp Pulse Resp BP Pulse Ox 100.3 F H 120 H 20 130/81 94 12/01/18 17:02 12/01/18 15:57 12/01/18 16:27 12/01/18 15:57 12/01/18 15:57 Exam: General: Alert, Awake, No acute Distress Eyes/N/T: EOMI, MMM Head/Neck: neck supple, normocephalic atraumatic CV: RRR, No murmurs, normal s1/s2 Pulm: Clear b/l, no wheezing/rhonchi/rales Abd: soft, TTP, decreased BS x4 Ext: no clubbing/cyanosis, puffy LE's but no pitting edema Neuro: Alert, no focal deficits, moves all extremities, Skin: warm/dry Medical - CN: Result - Labs CBC & Chem 7: 12/01/18 04:10 12/01/18 04:10 Labs: Short CBC 12/01/18 Range/Units 04:10 WBC 4.8 (4.5-11.0) K/mcL Hgb 9.7 L (12.0-15.0) g/dL Hct 28.2 L (36.0-48.0) % Plt Count 215 (140-440) K/mcL BMP 12/01/18 04:10 Sodium 145 Potassium 3.5 Chloride 105 Carbon Dioxide 28 BUN 7 Creatinine 0.6 Glucose 84 Calcium 8.2 L Cardiac Enzymes 12/01/18 Range/Units 15:31 Troponin T < 0.01 (0-0.03) ng/ml Liver Function 12/01/18 Range/Units 04:10 Total Bilirubin 0.4 (0.0-1.0) mg/dL AST 13 (0-37) U/l ALT 57 H (0-40) U/l Alkaline Phosphatase 80 (39-117) U/L Albumin 2.5 L (3.2-5.2) gm/dL Medical - CN: A/P - Narrative A/P Narrative: A: *Perforated appendix: s/p surgical intervention (11/29) *Acute peritonitis: * 5 months: *Tachycardia/Fever: related to pain/anxiety/peritonitis: good abx coverage and IVF's provided -rule out PE, pt has been on enoxaparin post-op * P: -cont IVF's -Abx per ID; pending intraop cx's, checking for c. diff -IS -encourage patient to keep on top of pain with PIGS FEET CLEANER pump, prn tylenol/toradol -pending CTA -Ambulation - -ppx: lovenox/pepcid
--- NOTE | 2018-12-01 17:43 | Cat Scan Report ---
CLINICAL INFORMATION: Shortness of breath evaluate for pulmonary emboli, abdominal pain following appendectomy COMPARISON: Abdomen CT on 11/29/18 TECHNIQUE: Axial images obtained through the chest. intravenous contrast administration was administered, and scanning was performed during pulmonary arterial phase. Sagittally and coronally reformatted images were obtained. MIP reformatted images. Following this delayed portal venous phase images were acquired from the diaphragm to the symphysis pubis. Radiation exposure was limited using dose reduction technology. CHEST: The pulmonary arteries are normal without evidence of emboli. Small bilateral layering pleural effusions are present. There is more fluid on the right than left. Associated with this is mild compressive atelectasis in the posterior basal segments of both lower lobes. Smaller band of atelectasis is present in the right middle lobe. There is no evidence of pneumonia or pulmonary mass. Heart is normal in size and contour. The aorta and mediastinum and niko are normal. Abdomen and pelvis: There postoperative changes in the right mid abdomen following recent appendectomy. There are two percutaneous drainage catheters in the abdomen. There is a large-caliber Jovanni drain anterior to the cecum. There is a second smaller catheter with the tip located superior and lateral to the left side of the urinary bladder. There is a large amount of stranding of the fat within the mesentery around the distal ileum, cecum and ascending colon. The inflamed appendix and appendicolith seen on the preoperative CT done on 11/29/18 have been removed. There are small bubbles of air in the region where the appendix had been resected. There is matting of the small bowel and colon and this level but no mass or abscess is identified. This is not causing any distal small bowel obstruction. A large amount liquefied stool is present in the cecum and ascending colon. There is a small amount of free intraperitoneal air. There is moderate amount of subcutaneous air in the anterior and lateral abdominal walter bilaterally. This may be related to laparoscopic surgery. Small amount of ascites is present deep in the pelvis and extending into the right pararenal space. The liver, spleen, gallbladder and pancreas are normal. There is 1 cm simple cyst in the midportion right kidney. The kidneys are otherwise normal and there is no hydronephrosis. A moderate amount of fluid is present in nondilated small intestine. There are couple air-fluid levels. There is air in the urinary bladder. Patient may have recently been catheterized. There is no catheter in the bladder this time. IUD is present within a retroverted uterus. FINDINGS: IMPRESSION: No evidence of pulmonary emboli Small bilateral layering pleural effusions with mild compressive atelectasis in the posterior basal segments of both lower lobes Inflammation and edema in the abdomen around the distal ileum and cecum, but without evidence of an abscess. Interpreted and Authenticated by: Arian Hicks 12/01/18
[2018-12-01] MEDS ORDERED: KETOROLAC 30 MG/ML VIAL IV PRN (17:58)
[2018-12-01] MEDS ORDERED: ACETAMINOPHEN 1,000 MG/100 ML BOTTLE IV PRN (18:00)
[2018-12-01 18:47] LABS: Basophils # (Auto) 0 K/mcL (0.0-0.3); Basophils % (Auto) 0.3 % (0.0-2.0); Eosinophils # (Auto) 0.1 K/mcL (0.0-0.7); Eosinophils % (Auto) 0.9 % (0.0-7.0); Granulocytes % (Auto) 77.1 % (38.0-78.0); Lymphocytes % (Auto) 11.8 % (15.5-49.0); Mean Corpuscular HGB Conc 34.1 g/dL (31.0-36.0); Monocytes # (Auto) 0.8 K/mcL (0.1-0.9); Monocytes % (Auto) 9.9 % (1.0-12.0); Platelet Count 304 K/mcL (140-440); RBC 3.57 M/mcL (4.00-5.20); Red Cell Distribution Width 12.9 % (11.5-14.5)
[2018-12-01 19:11] LABS: Blood Urea Nitrogen 4 mg/dl (6-20)
[2018-12-01] MEDS: VANCOMYCIN ORAL SOL 1,000 MG/10 ML BOTTLE PO SCH ×2 (21:46→22:40)
[2018-12-02] MEDS: PIPERACILLIN SODIUM/TAZOBACTAM 3.375 GM in DEXTROSE 5% IN WATER 50 ML IV SCH ×5 (00:10→23:55)
[2018-12-02] MEDS: 0.9 % SODIUM CHLORIDE 10 ML SYRINGE IV SCH ×4 (00:11→23:03)
[2018-12-02] MEDS: DEXTROSE 5%-1/2NS W/20MEQ KCL 1,000 ML IV SCH ×3 (00:15→17:16)
[2018-12-02] MEDS: ACETAMINOPHEN 1,000 MG/100 ML BOTTLE IV PRN (00:53)
[2018-12-02] MEDS: LORazepam 1 MG TABLET PO PRN (03:24)
[2018-12-02 05:25] LABS: Mean Cell Volume 85.4 fL (80.0-100.0); Mean Corpuscular HGB Conc 34.5 g/dL (31.0-36.0); Platelet Count 290 K/mcL (140-440); Red Cell Distribution Width 12.6 % (11.5-14.5)
[2018-12-02 05:41] LABS: ALT/SGPT 46 U/l (0-40); Albumin 2.3 gm/dL (3.2-5.2); Albumin/Globulin Ratio 0.7 (1.0-2.3); Alkaline Phosphatase 86 U/L (39-117); Bilirubin,Direct < 0.2 mg/dL (0.0-0.3); Blood Urea Nitrogen 3 mg/dl (6-20); Gamma Glutamyl Transpeptidase 24 U/L (5-36); Uric Acid 1.4 mg/dL (2.5-8.0)
[2018-12-02] MEDS: METOCLOPRAMIDE 10 MG TABLET PO SCH ×4 (05:50→23:55)
[2018-12-02] MEDS: 0.9 % SODIUM CHLORIDE 250 ML IV SCH ×2 (05:57→14:31)
[2018-12-02 06:29] LABS: Band Neutrophils % 8 % (0-10); Basophils % (Manual) 1 % (0-2); Lymphocytes % 15 % (15-49); Metamyelocytes % 1 % (0-0); Monocytes % (Manual) 8 % (1-12); Platelet Estimate NORMAL (NORMAL); RBC Morphology NORMAL (NORMAL); Segmented Neutrophils % 67 % (38-78)
[2018-12-02] MEDS ORDERED: POTASSIUM CHLORIDE 20 MEQ in DEXTROSE 5% IN WATER 250 ML IV ONE (06:42)
[2018-12-02] MEDS ORDERED: MAGNESIUM SULFATE 8.12 MEQ in DEXTROSE 5% IN WATER 50 ML IV ONE (06:42)
[2018-12-02] MEDS ORDERED: 0.9 % SODIUM CHLORIDE 500 ML IV ONE (06:44)
--- NOTE | 2018-12-02 07:06 | General Surgery Progress Note ---
Subjective Patient reports: pain is less (Patient seen at bedside. Stated felt better than yesterday. Urinating well. Episode of Nausea. Spiked fever yesterday 101.9F, continues Tachycardia. PE ruled out yesterday via CTA. Ambulating using IS. No BM, Rn reported single episode of patient reported flatus. [place] drains with serous output) Narrative: Note initiated : 12/02/18 at 7:04 am Service Date, if different from initiated Date: [] Patient: Naomi Corrales 27 y/o F admitted on 11/29/18 for right lower abd pain. Chief Complaint: [] Pertinent ROS: No current N/V/D, No current F/C/NS, No SOB or CP. Abdominal pain rated as 5-6/ 10. Objective Temp Pulse Resp BP Pulse Ox 99.1 F H 115 H 16 100/66 99 12/02/18 04:00 12/02/18 04:00 12/02/18 04:00 12/02/18 04:00 12/02/18 04:00 - Additional Data Intake & Output - Last 24 hours: Intake & Output 11/30/18 12/01/18 12/02/18 12/03/18 05:59 05:59 05:59 05:59 Intake Total 3949 / 3949 4833 / 4833 4113 / 4113 50 / 50 Output Total 2135 / 2135 1065 / 1065 2765 / 2765 Balance 1814 / 1814 3768 / 3768 1348 / 1348 50 / 50 Weight 168 lb 14.4 oz 166 lb 14.4 oz 172 lb 8 oz - General physical appearance well developed, well nourished, no distress, moderate pain - Eyes normal ocular movement - ENT normal mucosa - Neck trachea midline - Respiratory normal expansion, normal respiratory effort, clear to auscultation - Cardiovascular Cardiovascular exam: Present: tachycardia - Abdomen soft (non-distended. TTP RLQ, no rebound, voluntary gaurding. [place] drains in place with serous output.) - Integumentary no rash - Neurologic normal sensation - Musculoskeletal normal posture - Psychiatric oriented to time, oriented to person, oriented to place, speech is normal, memory intact - Additional Exam lower Extremities: Non tender to palpation, no edema - Labs 12/02/18 03:42 12/02/18 03:42 Diabetes panel 12/01/18 12/02/18 Range/Units 17:50 03:42 Sodium 140 139 (133-145) mmol/L Potassium 3.4 3.5 (3.3-5.1) mmol/L Chloride 102 101 (96-108) mmol/L Carbon Dioxide 26 28 (22-30) mmol/L BUN 4 L 3 L (6-20) mg/dl Creatinine 0.5 L 0.5 L (0.6-1.1) mg/dl Glucose 109 H 112 H (70-105) mg/dL Calcium 8.2 L 8.1 L (8.6-10.4) mg/dl AST 17 (0-37) U/l ALT 46 H (0-40) U/l Alkaline Phosphatase 86 (39-117) U/L Total Protein 5.6 L (5.9-8.4) gm/dL Albumin 2.3 L (3.2-5.2) gm/dL Triglycerides 95 (<150) mg/dl Calcium panel 12/01/18 12/02/18 12/02/18 Range/Units 17:50 03:42 03:42 Calcium 8.2 L 8.1 L (8.6-10.4) mg/dl Phosphorus 3.6 TNP (2.7-4.5) mg/dL Albumin 2.3 L (3.2-5.2) gm/dL Pituitary panel 12/01/18 12/02/18 Range/Units 17:50 03:42 Sodium 140 139 (133-145) mmol/L Potassium 3.4 3.5 (3.3-5.1) mmol/L Chloride 102 101 (96-108) mmol/L Carbon Dioxide 26 28 (22-30) mmol/L BUN 4 L 3 L (6-20) mg/dl Creatinine 0.5 L 0.5 L (0.6-1.1) mg/dl Glucose 109 H 112 H (70-105) mg/dL Calcium 8.2 L 8.1 L (8.6-10.4) mg/dl Adrenal panel 12/01/18 12/02/18 Range/Units 17:50 03:42 Sodium 140 139 (133-145) mmol/L Potassium 3.4 3.5 (3.3-5.1) mmol/L Chloride 102 101 (96-108) mmol/L Carbon Dioxide 26 28 (22-30) mmol/L BUN 4 L 3 L (6-20) mg/dl Creatinine 0.5 L 0.5 L (0.6-1.1) mg/dl Glucose 109 H 112 H (70-105) mg/dL Calcium 8.2 L 8.1 L (8.6-10.4) mg/dl Total Bilirubin 0.4 (0.0-1.0) mg/dL AST 17 (0-37) U/l ALT 46 H (0-40) U/l Alkaline Phosphatase 86 (39-117) U/L Total Protein 5.6 L (5.9-8.4) gm/dL Albumin 2.3 L (3.2-5.2) gm/dL Assessment and Plan (1) Acute appendicitis with perforation, localized peritonitis, and abscess Status: Acute Current Visit: Yes (2) Acute appendicitis Status: Acute Current Visit: Yes (3) Appendicolith Status: Acute Current Visit: Yes - Narrative A/P Narrative: 27 yo female POD #3 laparoscopic converted to open appendectomy for Perforated purulent acute appendicitis with appendicolith and localized peritonitis, now with tachycardia, fever spikes. 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 Ativan prn anxiety Cardiovascular: Tachycardic. Continuous cardiac monitoring. fluid bolus PRN Pulm: Atelectasis & Small effusions. Continue incentive spirometer. O2 2 L NC prn. CTA negative for PE. GI: Sips of clears/ ice chips. Continue famotidine. Continue Reglan standing & zofran prn. Continue jps to bulb suction. Daily dressing changes. Colace BID ID: ID on case appreciated. C diff swab pending, continue oral vancomycin. Continue Zosyn. Procalcitonin & lactic acid prn. Fever workup cultures pending. Benadryl prn Itching : stable. Voiding well ENDO: Stable Hemonc: H&H trending down, likely dilutional will monitor. MSK: Stable. PT consult appreciated. FEN: D5 1/2NS +20K, F Multivitamins, am labs, OOB to chair, replace electrolytes prn. Patient to pump and dump breast milk. Medical team on case appreciated. GI Prophylaxis: Protonix DVT Prophylaxis: SCD's lovenox Condition: guarded Disposition: Continue Telemetry. - Time Spent With Patient Total time spent is greater than 50% in coordination of care (as documented) at patient's floor/unit and/or counseling patient:
--- NOTE | 2018-12-02 07:10 | Internal Med Progress Note ---
Medical - PN: Subj Patient information: Note initiated : 12/02/18 at 7:03 am Service Date, if different from initiated Date: [] Patient: Naomi Corrales a 27 y/o F admitted on 11/29/18 for right lower abd pain. Chief Complaint: [] Interval history: Ms. Corrales is a 27 year old F Who presented on the with severe abdominal pain which initially started 5 days earlier but woke up on this date severe pain. Presented to ED CT scan showed a perforated appendix. She was taken back to the OR for initial laparoscopic appendectomy and subsequently converted to open. During the surgery she was found to have perforated cecum as well with purulent appendicitis and localized peritonitis. Since then she started developed fevers and tachycardia today. She has some shortness of breath that associated with abdominal pain, and breathing shallow. Still has a lot of abdominal pain and has not maxed out the Dilaudid PRICE ANALYST pump. Is felt that she might not be keeping on her pain. She is 5 months and breast-feeding. She is been on Zosyn as well as Flagyl. The Dilaudid PRICE ANALYST pump and Tylenol Toradol as needed. Her blood pressure is good and her oxygenation is good as well, respiratory rate is around 20. She reports fevers and chills. No chest pain no headache no nausea vomiting. Mason anxious earlier but is feeling better at this time. 1/3 Feeling better today. Pain is improved with pain regimen. She feels her bowels are waking up but she has not passed any flatus, She is burping. No cough chest pain shortness of breath. Does feel feverish at the moment. Review of Systems: denies headache/chills/nausea/vomiting/chest pain/cough/dyspnea/diarrhea. Otherwise see above. - Constitutional Vitals: Vital Signs Temp Pulse Resp BP Pulse Ox 99.1 F H 115 H 16 100/66 99 12/02/18 04:00 12/02/18 04:00 12/02/18 04:00 12/02/18 04:00 12/02/18 04:00 Period Temp Pulse Resp BP Sys/Best Pulse Ox Last 24 Hr 99 F-102.5 F 115-128 16-25 100-136/62-87 87-99 Intake and Output 12/01/18 12/02/18 12/02/18 21:59 05:59 13:59 Intake Total 1786 / 1786 1310 / 1310 50 / 50 Output Total 1725 / 1725 Balance 1786 / 1786 -415 / -415 50 / 50 Weight 78.245 kg Intake & Output: Intake & Output 12/01/18 12/02/18 12/02/18 21:59 05:59 13:59 Intake Total 1786 / 1786 1310 / 1310 50 / 50 Output Total 1725 / 1725 Balance 1786 / 1786 -415 / -415 50 / 50 Weight 78.245 kg Intake: IV 1306 / 1306 1150 / 1150 50 / 50 Dextrose 5%-1/2Ns W/20Meq KCl 1 1000 / 1000 ,000 ml @ 125 mls/hr IV .Q8H [facility] Rx#:[id number] Zosyn 3.375 gm In Dextrose 5% 50 / 50 50 / 50 50 / 50 in Water 50 ml @ 100 mls/hr IV Q6H [facility] Rx#:[id number] Oral 480 / 480 120 / 120 Input, Drain Irrigation Amount 40 / 40 A 30 / 30 B 10 / 10 Output: Void Amount 1725 / 1725 Other: Urine Appearance Clear Urine Color Dark Yellow Urine Odor Normal # Voids 1 Exam: General: Alert, Awake, No acute Distress Eyes/N/T: EOMI, Head/Neck: neck supple, CV: RRR, No murmurs Pulm: Clear b/l, no wheezing/rhonchi/rales Abd: soft, TTP, decreased BS but they are present Ext: no clubbing/cyanosis, trace-1+ b/l LE edema Neuro: Alert, no focal deficits, moves all extremities, Skin: warm/dry Medical - PN: Obj Da - Labs CBC & Chem 7: 12/02/18 03:42 12/02/18 03:42 Labs: Abnormal Lab Results 12/02/18 12/02/18 12/01/18 03:42 03:42 17:50 RBC 3.40 L Hgb 10.0 L Hct 29.0 L Gran % Lymph % (Auto) Lymph # (Auto) Metamyelocytes % 1 H Potassium BUN 3 L 4 L Creatinine 0.5 L 0.5 L Glucose 112 H 109 H Uric Acid 1.4 L Calcium 8.1 L 8.2 L Phosphorus Magnesium AST ALT 46 H Alkaline Phosphatase C-Reactive Protein NT-Pro-B Natriuret Pep Total Protein 5.6 L Albumin 2.3 L Albumin/Globulin Ratio 0.7 L Urine Ketones Urine Occult Blood Urine Urobilinogen Urine WBC 12/01/18 12/01/18 12/01/18 17:50 15:31 04:10 RBC 3.57 L Hgb 10.5 L Hct 30.7 L Gran % Lymph % (Auto) 11.8 L Lymph # (Auto) 1.0 L Metamyelocytes % Potassium BUN Creatinine Glucose Uric Acid Calcium 8.2 L Phosphorus Magnesium AST ALT 57 H Alkaline Phosphatase C-Reactive Protein NT-Pro-B Natriuret Pep 808.5 H Total Protein 5.5 L Albumin 2.5 L Albumin/Globulin Ratio 0.8 L Urine Ketones Urine Occult Blood Urine Urobilinogen Urine WBC 12/01/18 11/30/18 11/30/18 04:10 07:32 04:08 RBC 3.27 L Hgb 9.7 L Hct 28.2 L Gran % Lymph % (Auto) Lymph # (Auto) 1.0 L Metamyelocytes % Potassium BUN 4 L 5 L Creatinine Glucose 176 H 189 H Uric Acid Calcium 8.5 L 8.2 L Phosphorus 5.3 H Magnesium 1.4 L AST ALT Alkaline Phosphatase C-Reactive Protein NT-Pro-B Natriuret Pep Total Protein Albumin Albumin/Globulin Ratio Urine Ketones Urine Occult Blood Urine Urobilinogen Urine WBC 11/30/18 11/29/18 11/29/18 04:08 18:33 18:14 RBC 3.80 L Hgb 11.3 L Hct 32.4 L Gran % 86.5 H Lymph % (Auto) 4.5 L Lymph # (Auto) 0.3 L Metamyelocytes % Potassium BUN Creatinine Glucose Uric Acid Calcium Phosphorus Magnesium AST ALT Alkaline Phosphatase C-Reactive Protein 43.4 H NT-Pro-B Natriuret Pep Total Protein Albumin Albumin/Globulin Ratio Urine Ketones 5/tr A Urine Occult Blood 0.03 A Urine Urobilinogen 4.0 A Urine WBC 6 H 11/29/18 11/29/18 18:02 18:02 RBC Hgb Hct Gran % 78.1 H Lymph % (Auto) 14.1 L Lymph # (Auto) 1.3 L Metamyelocytes % Potassium 3.1 L BUN 5 L Creatinine Glucose Uric Acid Calcium Phosphorus Magnesium AST 85 H ALT 156 H Alkaline Phosphatase 139 H C-Reactive Protein NT-Pro-B Natriuret Pep Total Protein Albumin Albumin/Globulin Ratio Urine Ketones Urine Occult Blood Urine Urobilinogen Urine WBC Meds: Medications Diphenhydramine HCl (Benadryl) 25 mg IV Q6HP PRN PRN Reason: Itching Docusate Sodium (Colace) 100 mg PO BID [facility] Enoxaparin Sodium (Lovenox) 40 mg SQ DAILY [facility] Famotidine (Pepcid) 20 mg IV Q12 [facility] Last Admin: 12/01/18 21:48 Dose: 20 mg Hydromorphone HCl (Dilaudid Database Management Specialist) 30 mg IV UD PRN; Protocol PRN Reason: Pain Potassium Chloride/Dextrose/Sod Cl (Dextrose 5%-1/2ns W/20meq Kcl) 1,000 mls @ 125 mls/hr IV .Q8H [facility] Last Admin: 12/02/18 00:15 Dose: 125 mls/hr Sodium Chloride (Sodium Chloride 0.9%) 250 mls @ 20 mls/hr IV .[id number] [facility] Last Admin: 12/02/18 05:57 Dose: Not Given Piperacillin Sod/Tazobactam (Sod 3.375 gm/ Dextrose) 50 mls @ 100 mls/hr IV Q6H [facility] Last Infusion: 12/02/18 06:19 Dose: Infused Potassium Chloride 20 meq/ (Dextrose) 260 mls @ 130 mls/hr IV ONCE ONE Stop: 12/02/18 08:41 Magnesium Sulfate 8.12 meq/ (Dextrose) 52 mls @ 104 mls/hr IV ONCE ONE Stop: 12/02/18 07:11 Acetaminophen (Ofirmev) 1,000 mg in 100 mls @ 200 mls/hr IV Q8HP PRN PRN Reason: PAIN/FEVER > 101 Iron Carb/Multivit/[place]/Folic Acid (Multivitamin W/Minerals) 1 tab PO DAILY [facility] Ketorolac Tromethamine (Toradol) 30 mg IV Q8H [facility] Stop: 12/03/18 05:59 Lorazepam (Ativan) 0.5 mg PO Q12HP PRN PRN Reason: ANXIETY/SEDATION Last Admin: 12/02/18 03:24 Dose: 0.5 mg Metoclopramide HCl (Reglan) 5 mg PO Q6H [facility] Last Admin: 12/02/18 05:50 Dose: 5 mg Sodium Chloride (Saline Flush) 10 ml IV Q8 [facility] Last Admin: 12/02/18 05:51 Dose: 10 ml Vancomycin HCl (Vancomycin Oral Vira) 125 mg PO QID [facility] Last Admin: 12/01/18 22:40 Dose: Not Given Medical - PN: A/P - Time Spent With Patient Total time spent is greater than 50% in coordination of care (as documented) at patient's floor/unit and/or counseling patient: - Narrative A/P Narrative: A: *Perforated appendix: s/p surgical intervention (11/29) *Acute peritonitis: * 5 months: *Tachycardia/Fever - sepsis: 2/2 pain/anxiety/Peritonitis: good abx coverage and plenty of volume on board -CTA chest no PE, CT a/p no unexpected findings -r/o other source of infection, pending c. diff. lactate wnl. -Also with Atelectasis *Post-op Anemia: P: -IVF's -Abx per ID; pending intraop cx's, pending c. diff. PO vanco added -IS -encourage patient to keep on top of pain with PRICE ANALYST pump, prn tylenol/toradol -Ambulation - -ppx: lovenox/pepcid Medical - PN: Qual - VTE Deep Vein Thrombosis/Pulmonary Embolism Present on Admission: No
[2018-12-02] MEDS ORDERED: NALOXONE HCL 0.4 MG/ML VIAL IV PRN (07:11)
[2018-12-02] MEDS ORDERED: FLUMAZENIL 0.1 MG/ML ML IV PRN (07:11)
[2018-12-02] MEDS: KETOROLAC 30 MG/ML VIAL IV SCH ×3 (07:30→23:03)
[2018-12-02] MEDS: ONDANSETRON 4 MG ODT TABLET SL PRN ×2 (07:32→12:00)
--- NOTE | 2018-12-02 08:27 | XRay Report ---
HISTORY: Right lower quadrant pain and postoperative ileus FINDINGS: There are a few air-filled loops of large and small bowel in left side of the abdomen. Without an upright image I cannot determine if there is residual free intraperitoneal air or air-fluid levels within the bowel. The Caliber of the small bowel in the left side of the abdomen is similar to that seen on yesterday's CT scan. There are two surgical drains in the pelvis. There is residual air in the right side abdominal wall following the recent laparoscopic appendectomy. IMPRESSION: Normal postoperative changes following appendectomy Interpreted and Authenticated by: Arian Hicks 12/02/18
[2018-12-02] MEDS: FAMOTIDINE/PF 20 MG/2 ML VIAL IV SCH ×2 (08:53→21:00)
[2018-12-02] MEDS: ENOXAPARIN 40 MG/0.4 ML SYRINGE SQ SCH (08:54)
[2018-12-02] MEDS: MULTIVIT,THER IRON,CA,FA & MIN 1 TABLET PO SCH (08:54)
[2018-12-02] MEDS: ACETAMINOPHEN 1,000 MG/100 ML BOTTLE IV SCH ×2 (11:50→17:16)
[2018-12-02] MEDS: diphenhydrAMINE 50 MG/ML VIAL IV PRN ×2 (12:12→23:02)
--- NOTE | 2018-12-02 16:35 | Infectious Disease Consult ---
History of Present Illness Patient information: Note initiated : 12/02/18 at 4:19 pm Service Date, if different from initiated Date: [] Patient: Naomi Corrales 27 y/o F admitted on 11/29/18 for right lower abd pain. Chief Complaint: [] Consult date: 12/02/18 Requesting Physician: River Salvador DO Reason for Consult: perforated appendix and cecum with localized peritonitis Chief complaint: my belly hurts History of present illness: 27-year-old female with no significant past medical history, started noticing right upper belly pain last Thursday [11/24] along with nausea, around 7 out of 10. Patient underwent ultrasound on 11/25/18 which showed normal abdominal findings. Patient's pain continued to get worse and subsequently migrated from being in the upper abdomen to right lower abdomen. Patient was at home but she presented to the hospital on 11/29 when pain really got worse. She underwent CT scan on 11/29 which showed acute appendicitis with periappendiceal abscess. Patient underwent laparoscopic appendicectomy which had to be converted to open appendicectomy with operative findings of retrocecal perforated appendix with purulence and localized peritonitis. The operative cultures were sent and it grew heavy growth of gram-positive and gram-negative jakob. Patient has been on IV Zosyn since admission. She started spiking fevers and worsening of tachycardia around afternoon of november which prompted a repeat imaging of chest and abdomen. He also had some shortness of breath along with shallow breathing. CT chest abdomen was negative for any pulmonary embolism, showed fat stranding near the ascending colon with concern for inflammation and perforation in the cecal area. Per my discussion with the consulting surgeon, patient was started on oral vancomycin while continuing IV Zosyn and testing for C. difficile using a rectal swab as patient had ileus. Patient has been afebrile relatively today with clinical improvement in overall condition. Some of the labs checked yesterday such as pro-calcitonin and lactic acid did not suggest overwhelming infection. At time of my visit today, patient endorsed belly pain, radiated around 5 out of 10, better than before. She denied any diarrhea, nausea, vomiting, headache , cough, shortness of breath. She still has some increase in belly pain on deep breathing. Is using her incentive spirometer. Per nursing there is some leakage around the abdominal drains around the umbilicus. Patient is on clear liquid diet and is able to hold it down. Review of Systems All systems PM: reviewed and no additional remarkable complaints except as stated Past History Past surgical history: for bradycardia Past family history: Not pertinent to current medical presentation Past social history: Never smoker, rare alcohol use, no illicit drugs Medications and Allergies Home Medications Medication Instructions Recorded Confirmed Type HYDROmorphone HCL [Dilaudid] 2 mg PO Q4-6HP PRN #20 tab 11/25/18 11/29/18 Rx Ondansetron HCl [Zofran ODT] 4 mg SL Q4-6HP PRN #20 tab 11/25/18 11/29/18 Rx [facility] [place]-3/Dha/Epa/Fish Oil [Fish Oil 1 each PO 11/30/18 History 1,000 mg Softgel] Allergies Allergy/AdvReac Type Severity Reaction Status Date / Time hydrocodone Allergy Intermediate Facial Verified 11/29/18 17:47 Swelling Physical Examination Vital signs: Temp Pulse Resp BP Pulse Ox 37.7 C H 109 H 18 122/83 93 12/02/18 11:52 12/02/18 11:52 12/02/18 11:52 12/02/18 11:52 12/02/18 11:52 General appearance: no acute distress Eyes pulmonary: nonicteric ENT: other (No thrush) Auscultation: bilateral: diminished breath sounds (On the right lower lung, respiratory is clear to auscultation) Cardiovascular: regular rate and rhythm Gastrointestinal: normoactive bowel sounds, tender, rebound tenderness, guarding , other (Surgical incision sites look clean with danielle in situ. There is leakage of serous fluid around the midabdominal wall drain) Integumentary: normal Extremities: no edema Results - Laboratory Findings CBC and BMP: 12/02/18 03:42 12/02/18 03:42 Abnormal lab findings: Abnormal Labs 11/29/18 11/29/18 11/29/18 18:02 18:02 18:14 RBC Hgb Hct Gran % 78.1 H Lymph % (Auto) 14.1 L Lymph # (Auto) 1.3 L Metamyelocytes % Potassium 3.1 L BUN 5 L Creatinine Glucose Uric Acid Calcium Phosphorus Magnesium AST 85 H ALT 156 H Alkaline Phosphatase 139 H C-Reactive Protein 43.4 H NT-Pro-B Natriuret Pep Total Protein Albumin Albumin/Globulin Ratio Urine Ketones Urine Occult Blood Urine Urobilinogen Urine WBC 11/29/18 11/30/18 11/30/18 18:33 04:08 04:08 RBC 3.80 L Hgb 11.3 L Hct 32.4 L Gran % 86.5 H Lymph % (Auto) 4.5 L Lymph # (Auto) 0.3 L Metamyelocytes % Potassium BUN 5 L Creatinine Glucose 189 H Uric Acid Calcium 8.2 L Phosphorus 5.3 H Magnesium 1.4 L AST ALT Alkaline Phosphatase C-Reactive Protein NT-Pro-B Natriuret Pep Total Protein Albumin Albumin/Globulin Ratio Urine Ketones 5/tr A Urine Occult Blood 0.03 A Urine Urobilinogen 4.0 A Urine WBC 6 H 11/30/18 12/01/18 12/01/18 07:32 04:10 04:10 RBC 3.27 L Hgb 9.7 L Hct 28.2 L Gran % Lymph % (Auto) Lymph # (Auto) 1.0 L Metamyelocytes % Potassium BUN 4 L Creatinine Glucose 176 H Uric Acid Calcium 8.5 L 8.2 L Phosphorus Magnesium AST ALT 57 H Alkaline Phosphatase C-Reactive Protein NT-Pro-B Natriuret Pep Total Protein 5.5 L Albumin 2.5 L Albumin/Globulin Ratio 0.8 L Urine Ketones Urine Occult Blood Urine Urobilinogen Urine WBC 12/01/18 12/01/18 12/01/18 15:31 17:50 17:50 RBC 3.57 L Hgb 10.5 L Hct 30.7 L Gran % Lymph % (Auto) 11.8 L Lymph # (Auto) 1.0 L Metamyelocytes % Potassium BUN 4 L Creatinine 0.5 L Glucose 109 H Uric Acid Calcium 8.2 L Phosphorus Magnesium AST ALT Alkaline Phosphatase C-Reactive Protein NT-Pro-B Natriuret Pep 808.5 H Total Protein Albumin Albumin/Globulin Ratio Urine Ketones Urine Occult Blood Urine Urobilinogen Urine WBC 12/02/18 12/02/18 03:42 03:42 RBC 3.40 L Hgb 10.0 L Hct 29.0 L Gran % Lymph % (Auto) Lymph # (Auto) Metamyelocytes % 1 H Potassium BUN 3 L Creatinine 0.5 L Glucose 112 H Uric Acid 1.4 L Calcium 8.1 L Phosphorus Magnesium AST ALT 46 H Alkaline Phosphatase C-Reactive Protein NT-Pro-B Natriuret Pep Total Protein 5.6 L Albumin 2.3 L Albumin/Globulin Ratio 0.7 L Urine Ketones Urine Occult Blood Urine Urobilinogen Urine WBC Microbiology: Microbiology 11/29/18 23:42 Abdominal Fluid Gram Stain - Final 11/29/18 23:42 Abdominal Fluid Body Fluid Culture - Final 11/29/18 23:42 Appendix Gram Stain - Final 11/29/18 23:42 Appendix Gram Stain - Final 11/29/18 23:42 Appendix Anaerobic Culture - Preliminary 11/29/18 19:30 Urine - Clean Void Mid-Stream Urine Culture - Final 11/30/18 00:04 Nose MRSA (PCR) - Final Assessment and Plan - Narrative A/P Narrative: Assessment: 1. Acute perforated appendicitis with peritonitis: On day 3 of IV Zosyn with clinical improvement Negative C. difficile Leakage of serous fluid around the mid abdominal wall drain is concerning and may need repositioning of the drain - blood Cx NGTD 2. No concerns for sepsis at this point: Q-sofa score less than 2, sofa score around 0 Recommendations: Continue IV Zosyn 3.375 mg every 6 hours If patient spikes a fever, add IV vancomycin to be given a dose of 15 mg/kg [ 1.25 gm] twice daily with pharmacy assisted dosing & repeat blood Cx Will defer drainage around the mid abdominal wall drain to surgery team Can consider switching to oral antibiotics once patient is eating and ambulatory We will follow Reginaldo Calvert MD Infectious disease
[2018-12-02] MEDS: DOCUSATE SODIUM 100 MG CAPSULE PO SCH (21:00)
[2018-12-02] MEDS: HYDROmorphone PCA 30 MG/30 ML PCA.VIAL IV PRN (23:04)
[2018-12-03] MEDS: DEXTROSE 5%-1/2NS W/20MEQ KCL 1,000 ML IV SCH ×4 (02:19→13:04)
[2018-12-03] MEDS: ACETAMINOPHEN 1,000 MG/100 ML BOTTLE IV SCH ×3 (02:21→17:58)
[2018-12-03] MEDS: 0.9 % SODIUM CHLORIDE 250 ML IV SCH ×2 (05:39→15:31)
[2018-12-03 05:44] LABS: Basophils # (Auto) 0 K/mcL (0.0-0.3); Basophils % (Auto) 0.2 % (0.0-2.0); Eosinophils # (Auto) 0.1 K/mcL (0.0-0.7); Eosinophils % (Auto) 2.1 % (0.0-7.0); Granulocytes % (Auto) 74.6 % (38.0-78.0); Lymphocytes # (Auto) 0.9 K/mcL (1.5-4.8); Lymphocytes % (Auto) 13.6 % (15.5-49.0); Mean Cell Volume 86.5 fL (80.0-100.0); Mean Corpuscular HGB Conc 34.3 g/dL (31.0-36.0); Monocytes # (Auto) 0.6 K/mcL (0.1-0.9); Monocytes % (Auto) 9.5 % (1.0-12.0); Platelet Count 341 K/mcL (140-440); Red Cell Distribution Width 12.6 % (11.5-14.5)
[2018-12-03 05:58] LABS: ALT/SGPT 36 U/l (0-40); Albumin 2.3 gm/dL (3.2-5.2); Albumin/Globulin Ratio 0.7 (1.0-2.3); Alkaline Phosphatase 87 U/L (39-117); Bilirubin,Direct < 0.2 mg/dL (0.0-0.3); Blood Urea Nitrogen 3 mg/dl (6-20); Gamma Glutamyl Transpeptidase 22 U/L (5-36); Uric Acid 1.1 mg/dL (2.5-8.0)
[2018-12-03] MEDS: PIPERACILLIN SODIUM/TAZOBACTAM 3.375 GM in DEXTROSE 5% IN WATER 50 ML IV SCH ×3 (06:00→17:25)
--- NOTE | 2018-12-03 06:08 | Internal Med Progress Note ---
Medical - PN: Subj Patient information: Note initiated : 12/03/18 at 6:04 am Service Date, if different from initiated Date: [] Patient: Naomi Corrales a 27 y/o F admitted on 11/29/18 for right lower abd pain. Chief Complaint: [] Interval history: Ms. Corrales is a 27 year old F Who presented on the with severe abdominal pain which initially started 5 days earlier but woke up on this date severe pain. Presented to ED CT scan showed a perforated appendix. She was taken back to the OR for initial laparos copic appendectomy and subsequently converted to open. During the surgery she was found to have perforated cecum as well with purulent appendicitis and localized peritonitis. Since then she started developed fevers and tachycardia today. She has some shortness of breath that associated with abdominal pain, and breathing shallow. Still has a lot of abdominal pain and has not maxed out the Dilaudid FRONT CLERK pump. Is felt that she might not be keeping on her pain. She is 5 months and breast-feeding. She is been on Zosyn as well as Flagyl. The Dilaudid FRONT CLERK pump and Tylenol Toradol as needed. Her blood pressure is good and her oxygenation is good as well, respiratory rate is around 20. She reports fevers and chills. No chest pain no headache no nausea vomiting. [place] anxious earlier but is feeling better at this time. 1/3 Feeling better today. Pain is improved with pain regimen. She feels her bowels are waking up but she has not passed any flatus, She is burping. No cough chest pain shortness of breath. Does feel feverish at the moment. 1/4 Feels feverish at times, some nausea. But otherwise no other complaints. Overall feeling improved. Review of Systems: denies headache/chills/vomiting/chest pain/cough/dyspnea/diarrhea. Otherwise see above. - Constitutional Vitals: Vital Signs Temp Pulse Resp BP Pulse Ox 98 F 103 H 20 109/79 98 12/03/18 04:00 12/02/18 15:45 12/03/18 04:00 12/03/18 04:00 12/03/18 04:00 Period Temp Pulse Resp BP Sys/Best Pulse Ox Last 24 Hr 97.7 F-100.8 F 103-120 16-20 109-132/74-86 89-99 Intake and Output 12/02/18 12/03/18 12/03/18 21:59 05:59 13:59 Intake Total 2128 / 5540 1160 / 5540 Output Total 1005 / 2245 Balance 1123 / 3295 1160 / 3295 Weight 77.564 kg Intake & Output: Intake & Output 12/02/18 12/03/18 12/03/18 21:59 05:59 13:59 Intake Total 2128 / 5540 1160 / 5540 Output Total 1005 / 2245 Balance 1123 / 3295 1160 / 3295 Weight 77.564 kg Intake: IV 1150 / 4312 1150 / 4312 Dextrose 5%-1/2Ns W/20Meq KCl 1 1000 / 3000 1000 / 3000 ,000 ml @ 125 mls/hr IV .Q8H [facility] Rx#:[id number] Zosyn 3.375 gm In Dextrose 5% 50 / 200 50 / 200 in Water 50 ml @ 100 mls/hr IV Q6H [facility] Rx#:[id number] Oral 978 / 1218 Input, Drain Irrigation Amount 10 / 10 A 10 / 10 Output: Void Amount 850 / 2000 Other 155 / 215 Other: Urine Appearance Clear Urine Color Bright Yellow # Voids 1 4 Exam: General: Alert, Awake, No acute Distress Eyes/N/T: EOMI, Head/Neck: neck supple, CV: RRR, No murmurs Pulm: Clear b/l, no wheezing/rhonchi/rales Abd: soft, TTP, decreased BS Ext: no clubbing/cyanosis, trace-1+ b/l LE edema Neuro: Alert, no focal deficits, moves all extremities, Skin: warm/dry Medical - PN: Obj Da - Labs CBC & Chem 7: 12/02/18 03:42 12/03/18 03:13 Labs: Abnormal Lab Results 12/03/18 12/03/18 12/02/18 03:13 03:13 03:42 RBC 3.30 L Hgb 9.8 L Hct 28.5 L Lymph % (Auto) 13.6 L Lymph # (Auto) 0.9 L Metamyelocytes % BUN 3 L 3 L Creatinine 0.5 L 0.5 L Glucose 112 H Uric Acid 1.1 L 1.4 L Calcium 8.1 L 8.1 L Phosphorus Magnesium ALT 46 H NT-Pro-B Natriuret Pep Total Protein 5.7 L 5.6 L Albumin 2.3 L 2.3 L Albumin/Globulin Ratio 0.7 L 0.7 L 12/02/18 12/01/18 12/01/18 03:42 17:50 17:50 RBC 3.40 L 3.57 L Hgb 10.0 L 10.5 L Hct 29.0 L 30.7 L Lymph % (Auto) 11.8 L Lymph # (Auto) 1.0 L Metamyelocytes % 1 H BUN 4 L Creatinine 0.5 L Glucose 109 H Uric Acid Calcium 8.2 L Phosphorus Magnesium ALT NT-Pro-B Natriuret Pep Total Protein Albumin Albumin/Globulin Ratio 12/01/18 12/01/18 12/01/18 15:31 04:10 04:10 RBC 3.27 L Hgb 9.7 L Hct 28.2 L Lymph % (Auto) Lymph # (Auto) 1.0 L Metamyelocytes % BUN Creatinine Glucose Uric Acid Calcium 8.2 L Phosphorus Magnesium ALT 57 H NT-Pro-B Natriuret Pep 808.5 H Total Protein 5.5 L Albumin 2.5 L Albumin/Globulin Ratio 0.8 L 11/30/18 11/30/18 07:32 04:08 RBC Hgb Hct Lymph % (Auto) Lymph # (Auto) Metamyelocytes % BUN 4 L 5 L Creatinine Glucose 176 H 189 H Uric Acid Calcium 8.5 L 8.2 L Phosphorus 5.3 H Magnesium 1.4 L ALT NT-Pro-B Natriuret Pep Total Protein Albumin Albumin/Globulin Ratio Meds: Medications Diphenhydramine HCl (Benadryl) 25 mg IV Q6HP PRN PRN Reason: Itching Last Admin: 12/02/18 23:02 Dose: 25 mg Documented by: Docusate Sodium (Colace) 100 mg PO BID [facility] Last Admin: 12/02/18 21:00 Dose: 100 mg Documented by: Enoxaparin Sodium (Lovenox) 40 mg SQ DAILY [facility] Last Admin: 12/02/18 08:54 Dose: 40 mg Documented by: Famotidine (Pepcid) 20 mg IV Q12 [facility] Last Admin: 12/02/18 21:00 Dose: 20 mg Documented by: Flumazenil (Romazicon) 0.2 mg IV Q1MIN PRN PRN Reason: BENZODIAZEPINE REVERSAL Hydromorphone HCl (Dilaudid Table Lever Operator) 30 mg IV UD PRN; Protocol PRN Reason: Pain Last Admin: 12/02/18 23:04 Dose: 30 mg Documented by: Potassium Chloride/Dextrose/Sod Cl (Dextrose 5%-1/2ns W/20meq Kcl) 1,000 mls @ 125 mls/hr IV .Q8H [facility] Last Admin: 12/03/18 02:19 Dose: 125 mls/hr Documented by: Sodium Chloride (Sodium Chloride 0.9%) 250 mls @ 20 mls/hr IV .[id number] [facility] Last Admin: 12/03/18 05:39 Dose: Not Given Documented by: Piperacillin Sod/Tazobactam (Sod 3.375 gm/ Dextrose) 50 mls @ 100 mls/hr IV Q6H [facility] Last Infusion: 12/03/18 05:40 Dose: Infused Documented by: Acetaminophen (Ofirmev) 1,000 mg in 100 mls @ 200 mls/hr IV Q8H [facility] Last Infusion: 12/03/18 05:40 Dose: Infused Documented by: Iron Carb/Multivit/[place]/Folic Acid (Multivitamin W/Minerals) 1 tab PO DAILY [facility] Last Admin: 12/02/18 08:54 Dose: 1 tab Documented by: Lorazepam (Ativan) 0.5 mg PO Q12HP PRN PRN Reason: ANXIETY/SEDATION Last Admin: 12/02/18 03:24 Dose: 0.5 mg Documented by: Metoclopramide HCl (Reglan) 5 mg PO Q6H [facility] Last Admin: 12/02/18 23:55 Dose: 5 mg Documented by: Naloxone HCl (Narcan) 0.1 mg IV Q2MIN PRN PRN Reason: Opiate Reversal Ondansetron HCl (Zofran Odt) 4 mg SL Q4-6HP PRN PRN Reason: Nausea And Vomiting Last Admin: 12/02/18 12:00 Dose: 4 mg Documented by: Sodium Chloride (Saline Flush) 10 ml IV Q8 [facility] Last Admin: 12/02/18 23:03 Dose: 10 ml Documented by: Medical - PN: A/P - Time Spent With Patient Total time spent is greater than 50% in coordination of care (as documented) at patient's floor/unit and/or counseling patient: - Narrative A/P Narrative: A: *Perforated appendix: s/p surgical intervention (11/29) *Acute peritonitis: 2/2 above * 5 months: *Tachycardia/Fever: 2/2 pain/anxiety/Peritonitis: -CTA chest no PE, CT a/p no unexpected findings -c. diff neg, lactate wnl. -Also with Atelectasis *Post-op Anemia: P: -Abx per ID; pending intraop cx's, -decrease IVF's -IS -encourage patient to keep on top of pain with FRONT CLERK pump, prn tylenol/toradol -Ambulation - -ppx: lovenox/pepcid Medical - PN: Qual - VTE Deep Vein Thrombosis/Pulmonary Embolism Present on Admission: No
[2018-12-03] MEDS: METOCLOPRAMIDE 10 MG TABLET PO SCH ×3 (07:29→17:25)
[2018-12-03] MEDS: 0.9 % SODIUM CHLORIDE 10 ML SYRINGE IV SCH ×3 (07:29→21:22)
[2018-12-03] MEDS: ENOXAPARIN 40 MG/0.4 ML SYRINGE SQ SCH (09:02)
[2018-12-03] MEDS: DOCUSATE SODIUM 100 MG CAPSULE PO SCH ×2 (09:02→21:19)
[2018-12-03] MEDS: MULTIVIT,THER IRON,CA,FA & MIN 1 TABLET PO SCH (09:02)
[2018-12-03] MEDS: FAMOTIDINE/PF 20 MG/2 ML VIAL IV SCH ×2 (09:03→21:19)
--- NOTE | 2018-12-03 09:07 | Infectious Disease Prog Note ---
Subjective Patient information: Note initiated : 12/03/18 at 9:05 am Service Date, if different from initiated Date: [] Patient: Naomi Corrales 27 y/o F admitted on 11/29/18 for right lower abd pain. Chief Complaint: [] Interval history: Patient doing well, in fact better than yesterday. She was sitting up in the chair. Denies any fever, chills, vomiting, diarrhea. Endorses some belly pain and nausea. Still on clear liquid diet. Objective Objective Narrative: Alert oriented x3 No thrush Chest clear to auscultation except in the right posterior lung where the breath sounds are decreased to absent S1-S2 normal Still has some tenderness, rebound on palpation. [place] drain draining serosanguineous fluid No pedal edema - Vital Signs Vital signs: Vital Signs Temp Pulse Resp BP BP BP Pulse Ox 12/03/18 07:51 37.6 C H 18 118/88 95 12/03/18 04:00 36.6 C 20 109/79 98 12/03/18 00:00 37.7 C H 20 119/79 89 L 12/02/18 23:04 20 12/02/18 20:00 36.7 C 18 128/86 99 12/02/18 16:39 16 12/02/18 15:45 36.5 C 103 H 18 122/74 95 12/02/18 11:52 37.7 C H 109 H 18 122/83 93 12/02/18 11:50 37.7 C H Intake and Output 12/02/18 12/03/18 12/03/18 21:59 05:59 13:59 Intake Total 2128 / 5540 1160 / 5540 646 / 646 Output Total 1005 / 2245 1000 / 1000 Balance 1123 / 3295 1160 / 3295 -354 / -354 Intake: IV 1150 / 4312 1150 / 4312 646 / 646 Dextrose 5%-1/2Ns W/20Meq KCl 1 1000 / 3000 1000 / 3000 646 / 646 ,000 ml @ 125 mls/hr IV .Q8H [facility] Rx#:[id number] Zosyn 3.375 gm In Dextrose 5% 50 / 200 50 / 200 in Water 50 ml @ 100 mls/hr IV Q6H [facility] Rx#:[id number] Oral 978 / 1218 Input, Drain Irrigation Amount 10 / 10 A 10 / 10 Output: Void Amount 850 / 2000 1000 / 1000 Other 155 / 215 Other: Urine Appearance Clear Urine Color Bright Yellow # Voids 1 4 1 Weight 77.564 kg Intake & Output: Intake & Output 12/02/18 12/03/18 12/03/18 21:59 05:59 13:59 Intake Total 2128 / 5540 1160 / 5540 646 / 646 Output Total 1005 / 2245 1000 / 1000 Balance 1123 / 3295 1160 / 3295 -354 / -354 Weight 77.564 kg Intake: IV 1150 / 4312 1150 / 4312 646 / 646 Dextrose 5%-1/2Ns W/20Meq KCl 1 1000 / 3000 1000 / 3000 646 / 646 ,000 ml @ 125 mls/hr IV .Q8H [facility] Rx#:[id number] Zosyn 3.375 gm In Dextrose 5% 50 / 200 50 / 200 in Water 50 ml @ 100 mls/hr IV Q6H [facility] Rx#:[id number] Oral 978 / 1218 Input, Drain Irrigation Amount 10 / 10 A 10 / 10 Output: Void Amount 850 / 2000 1000 / 1000 Other 155 / 215 Other: Urine Appearance Clear Urine Color Bright Yellow # Voids 1 4 1 - Lab 12/02/18 03:42 12/03/18 03:13 Most recent lab results Calcium 8.1 mg/dl (8.6-10.4) L 12/03/18 03:13 Phosphorus 4.0 mg/dL (2.7-4.5) 12/03/18 03:13 Magnesium 1.9 mg/dL (1.6-2.5) 12/03/18 03:13 Microbiology 12/01/18 16:38 Blood Blood Culture - Preliminary 12/01/18 16:34 Blood Blood Culture - Preliminary 11/29/18 23:42 Abdominal Fluid Gram Stain - Final 11/29/18 23:42 Abdominal Fluid Body Fluid Culture - Final 11/29/18 23:42 Appendix Gram Stain - Final 11/29/18 23:42 Appendix Gram Stain - Final 11/29/18 23:42 Appendix Anaerobic Culture - Preliminary 11/29/18 19:30 Urine - Clean Void Mid-Stream Urine Culture - Final 11/30/18 00:04 Nose MRSA (PCR) - Final Medications Active Medications: Diphenhydramine HCl (Benadryl) 25 mg IV Q6HP PRN PRN Reason: Itching Last Admin: 12/02/18 23:02 Dose: 25 mg Documented by: Admin: 12/02/18 12:12 Dose: 25 mg Documented by: LINDSAY Comments: Itching to face and neck Docusate Sodium (Colace) 100 mg PO BID [facility] Last Admin: 12/03/18 09:02 Dose: 100 mg Documented by: Admin: 12/02/18 21:00 Dose: 100 mg Documented by: JACQUIE Enoxaparin Sodium (Lovenox) 40 mg SQ DAILY [facility] Last Admin: 12/03/18 09:02 Dose: 40 mg Documented by: Admin: 12/02/18 08:54 Dose: 40 mg Documented by: LINDSAY Famotidine (Pepcid) 20 mg IV Q12 [facility] Last Admin: 12/03/18 09:03 Dose: 20 mg Documented by: Admin: 12/02/18 21:00 Dose: 20 mg Documented by: Admin: 12/02/18 08:53 Dose: 20 mg Documented by: Admin: 12/01/18 21:48 Dose: 20 mg Documented by: AMY Flumazenil (Romazicon) 0.2 mg IV Q1MIN PRN PRN Reason: BENZODIAZEPINE REVERSAL Hydromorphone HCl (Dilaudid Audiovisual Lead Technician) 30 mg IV UD PRN; Protocol PRN Reason: Pain Last Admin: 12/02/18 23:04 Dose: 30 mg Documented by: JACQUIE Sodium Chloride (Sodium Chloride 0.9%) 250 mls @ 20 mls/hr IV .[id number] [facility] Last Admin: 12/03/18 05:39 Dose: Not Given Documented by: JACQUIE Non-Admin Reason: Not needed Admin: 12/02/18 14:31 Dose: Not Given Documented by: LINDSAY Non-Admin Reason: not needed, MIV infusing Admin: 12/02/18 05:57 Dose: Not Given Documented by: AMY Non-Admin Reason: Duplicate Admin: 12/01/18 13:33 Dose: Not Given Documented by: LINDSAY Non-Admin Reason: See previous order for admin prior totransfer Piperacillin Sod/Tazobactam (Sod 3.375 gm/ Dextrose) 50 mls @ 100 mls/hr IV Q6H [facility] Last Admin: 12/03/18 06:00 Dose: 100 mls/hr Documented by: LEANNE Comments: was given on material handler 2nd shift, computers down unable to scan Infusion: 12/03/18 05:40 Dose: 0 mls/hr Documented by: Admin: 12/02/18 23:55 Dose: 100 mls/hr Documented by: Infusion: 12/02/18 17:46 Dose: 0 mls/hr Documented by: Admin: 12/02/18 17:16 Dose: 100 mls/hr Documented by: Infusion: 12/02/18 12:22 Dose: 0 mls/hr Documented by: Admin: 12/02/18 11:51 Dose: 100 mls/hr Documented by: Infusion: 12/02/18 06:19 Dose: 0 mls/hr Documented by: Admin: 12/02/18 05:49 Dose: 100 mls/hr Documented by: Infusion: 12/02/18 01:40 Dose: 0 mls/hr Documented by: Admin: 12/02/18 00:10 Dose: 100 mls/hr Documented by: Infusion: 12/01/18 19:22 Dose: 0 mls/hr Documented by: Admin: 12/01/18 18:14 Dose: 100 mls/hr Documented by: LINDSAY Acetaminophen (Ofirmev) 1,000 mg in 100 mls @ 200 mls/hr IV Q8H [facility] Last Infusion: 12/03/18 05:40 Dose: 0 mls/hr Documented by: Admin: 12/03/18 02:21 Dose: 200 mls/hr Documented by: Infusion: 12/02/18 17:46 Dose: 0 mls/hr Documented by: Admin: 12/02/18 17:16 Dose: 200 mls/hr Documented by: Infusion: 12/02/18 12:20 Dose: 0 mls/hr Documented by: Admin: 12/02/18 11:50 Dose: 200 mls/hr Documented by: LINDSAY Potassium Chloride/Dextrose/Sod Cl (Dextrose 5%-1/2ns W/20meq Kcl) 1,000 mls @ 75 mls/hr IV .[id number] [facility] Last Admin: 12/03/18 09:02 Dose: 75 mls/hr Documented by: LEANNE Iron Carb/Multivit/Drywall Contractor/Folic Acid (Multivitamin W/Minerals) 1 tab PO DAILY [facility] Last Admin: 12/03/18 09:02 Dose: 1 tab Documented by: Admin: 12/02/18 08:54 Dose: 1 tab Documented by: LINDSAY Lorazepam (Ativan) 0.5 mg PO Q12HP PRN PRN Reason: ANXIETY/SEDATION Last Admin: 12/02/18 03:24 Dose: 0.5 mg Documented by: AMY Metoclopramide HCl (Reglan) 5 mg PO Q6H [facility] Last Admin: 12/03/18 07:29 Dose: 5 mg Documented by: LEANNE Comments: was given on material handler 2nd shift computers down unable to scan Admin: 12/02/18 23:55 Dose: 5 mg Documented by: Admin: 12/02/18 17:17 Dose: 5 mg Documented by: Admin: 12/02/18 11:48 Dose: 5 mg Documented by: Admin: 12/02/18 05:50 Dose: 5 mg Documented by: AMY Naloxone HCl (Narcan) 0.1 mg IV Q2MIN PRN PRN Reason: Opiate Reversal Ondansetron HCl (Zofran Odt) 4 mg SL Q4-6HP PRN PRN Reason: Nausea And Vomiting Last Admin: 12/02/18 12:00 Dose: 4 mg Documented by: Admin: 12/02/18 07:32 Dose: 4 mg Documented by: LINDSAY Sodium Chloride (Saline Flush) 10 ml IV Q8 [facility] Last Admin: 12/03/18 07:29 Dose: 10 ml Documented by: LEANNE Comments: done on material handler 2nd shift computers down unable to scan Admin: 12/02/18 23:03 Dose: 10 ml Documented by: Admin: 12/02/18 14:49 Dose: 10 ml Documented by: Admin: 12/02/18 05:51 Dose: 10 ml Documented by: Admin: 12/02/18 00:11 Dose: 10 ml Documented by: Admin: 12/01/18 13:33 Dose: Not Given Documented by: LINSDAY Non-Admin Reason: Continuous IV Assessment and Plan - Narrative A/P Narrative: Assessment: 1. Acute perforated appendicitis with peritonitis: On day 4 of IV Zosyn with clinical improvement Negative C. difficile - blood Cx NGTD 2. No concerns for sepsis at this point: Q-sofa score less than 2, sofa score around 0 Recommendations: Continue IV Zosyn 3.375 mg every 6 hours for now Given pt's low grade fevers (noticed later in the day, not present in am), will defer switching to oral antibiotics for now. - If fever persists tomorrow, add IV Vanc 1.2 gm q12 hrs with pharmacy assisted dosing. Check Vanc trough before the 4th dose, and repeat abdominal imaging (CT) will follow Reginaldo Calvert MD Infectious disease
[2018-12-03 11:35] LABS: proBNP 395.7 pg/ml (0-125)
--- NOTE | 2018-12-03 12:50 | General Surgery Progress Note ---
Subjective Patient reports: still having pain, pain is less, tolerating liquids well, no flatus, no bowel movement, fever Narrative: Note initiated : 12/03/18 at 12:48 pm Service Date, if different from initiated Date: [] Patient: Naomi Corrales 27 y/o F admitted on 11/29/18 for right lower abd pain. Chief Complaint: [Patient still has spiking fevers. She denies nausea. Her right-sided abdominal pain is about the same. She is not having bowel movements or flatus. She had profuse sweats after treatment of her elevated temperature and she states that she feels better.] Objective Temp Pulse Resp BP Pulse Ox 100.7 F H 103 H 24 H 128/82 92 12/03/18 11:42 12/02/18 15:45 12/03/18 11:42 12/03/18 11:42 12/03/18 11:42 - Additional Data Intake & Output - Last 24 hours: Intake & Output 12/01/18 12/02/18 12/03/18 12/04/18 05:59 05:59 05:59 05:59 Intake Total 4833 / 4833 4130 / 4130 5540 / 5540 696 / 696 Output Total 1065 / 1095 2765 / 2765 2245 / 2245 1000 / 1000 Balance 3768 / 3738 1365 / 1365 3295 / 3295 -304 / -304 Weight 166 lb 14.4 oz 172 lb 8 oz 171 lb - General physical appearance moderate distress, moderate pain - Eyes PERRL, normal ocular movement - ENT normal pinna, normal nares, normal mucosa, no hearing loss, no congestion - Neck no masses, no bruits, trachea midline, no venous distension - Respiratory other (decreased breath sounds both bases) - Cardiovascular Cardiovascular exam: Present: normal rate and rhythm, +S1, +S2, tachycardia. Absent: JVD - Abdomen tender (tentative surgical scars; active bowel sounds), bowel sounds, surgical scars (none) - Integumentary no rash, no growths, no abnormal pigmentation - Neurologic normal coordination - Musculoskeletal normal gait, normal posture - Psychiatric oriented to time, oriented to person, oriented to place, speech is normal, memory intact - Labs 12/02/18 03:42 12/03/18 03:13 Diabetes panel 12/03/18 Range/Units 03:13 Sodium 140 (133-145) mmol/L Potassium 3.7 (3.3-5.1) mmol/L Chloride 101 (96-108) mmol/L Carbon Dioxide 27 (22-30) mmol/L BUN 3 L (6-20) mg/dl Creatinine 0.5 L (0.6-1.1) mg/dl Glucose 96 (70-105) mg/dL Calcium 8.1 L (8.6-10.4) mg/dl AST 16 (0-37) U/l ALT 36 (0-40) U/l Alkaline Phosphatase 87 (39-117) U/L Total Protein 5.7 L (5.9-8.4) gm/dL Albumin 2.3 L (3.2-5.2) gm/dL Triglycerides 96 (<150) mg/dl Calcium panel 12/03/18 Range/Units 03:13 Calcium 8.1 L (8.6-10.4) mg/dl Phosphorus 4.0 (2.7-4.5) mg/dL Albumin 2.3 L (3.2-5.2) gm/dL Pituitary panel 12/03/18 Range/Units 03:13 Sodium 140 (133-145) mmol/L Potassium 3.7 (3.3-5.1) mmol/L Chloride 101 (96-108) mmol/L Carbon Dioxide 27 (22-30) mmol/L BUN 3 L (6-20) mg/dl Creatinine 0.5 L (0.6-1.1) mg/dl Glucose 96 (70-105) mg/dL Calcium 8.1 L (8.6-10.4) mg/dl Adrenal panel 12/03/18 Range/Units 03:13 Sodium 140 (133-145) mmol/L Potassium 3.7 (3.3-5.1) mmol/L Chloride 101 (96-108) mmol/L Carbon Dioxide 27 (22-30) mmol/L BUN 3 L (6-20) mg/dl Creatinine 0.5 L (0.6-1.1) mg/dl Glucose 96 (70-105) mg/dL Calcium 8.1 L (8.6-10.4) mg/dl Total Bilirubin 0.4 (0.0-1.0) mg/dL AST 16 (0-37) U/l ALT 36 (0-40) U/l Alkaline Phosphatase 87 (39-117) U/L Total Protein 5.7 L (5.9-8.4) gm/dL Albumin 2.3 L (3.2-5.2) gm/dL Assessment and Plan (1) Acute appendicitis with perforation, localized peritonitis, and abscess Status: Acute Assessment and plan: The patient's postoperative fever is worrisome however clinically she remains stable. Since her CT that was done 2 days ago is unremarkable I will delay repeating it in the. She will remain on Zosyn. She is not stable for consideration for discharge at this time. Current Visit: Yes - Time Spent With Patient Total time spent is greater than 50% in coordination of care (as documented) at patient's floor/unit and/or counseling patient:
[2018-12-03] MEDS: MAGNESIUM HYDROXIDE 30 ML ORAL.SUSP PO SCH ×2 (13:04→19:28)
[2018-12-03] MEDS: ONDANSETRON 4 MG ODT TABLET SL PRN (15:30)
[2018-12-04] MEDS: METOCLOPRAMIDE 10 MG TABLET PO SCH ×4 (00:13→17:15)
[2018-12-04] MEDS: PIPERACILLIN SODIUM/TAZOBACTAM 3.375 GM in DEXTROSE 5% IN WATER 50 ML IV SCH ×4 (00:13→17:20)
[2018-12-04] MEDS: MAGNESIUM HYDROXIDE 30 ML ORAL.SUSP PO SCH (00:15)
[2018-12-04] MEDS: DEXTROSE 5%-1/2NS W/20MEQ KCL 1,000 ML IV SCH ×2 (01:03→12:09)
[2018-12-04] MEDS: ACETAMINOPHEN 1,000 MG/100 ML BOTTLE IV SCH (02:08)
[2018-12-04] MEDS: diphenhydrAMINE 50 MG/ML VIAL IV PRN (03:04)
[2018-12-04] MEDS: 0.9 % SODIUM CHLORIDE 10 ML SYRINGE IV SCH ×3 (05:39→20:15)
[2018-12-04 06:08] LABS: ALT/SGPT 34 U/l (0-40); Albumin 2.5 gm/dL (3.2-5.2); Albumin/Globulin Ratio 0.7 (1.0-2.3); Alkaline Phosphatase 105 U/L (39-117); Bilirubin,Direct < 0.2 mg/dL (0.0-0.3); Blood Urea Nitrogen 4 mg/dl (6-20); Gamma Glutamyl Transpeptidase 25 U/L (5-36); Uric Acid 1.4 mg/dL (2.5-8.0)
[2018-12-04 06:09] LABS: Basophils # (Auto) 0 K/mcL (0.0-0.3); Basophils % (Auto) 0.1 % (0.0-2.0); Eosinophils # (Auto) 0.1 K/mcL (0.0-0.7); Eosinophils % (Auto) 1.8 % (0.0-7.0); Granulocytes % (Auto) 75.1 % (38.0-78.0); Lymphocytes # (Auto) 1.2 K/mcL (1.5-4.8); Lymphocytes % (Auto) 15.2 % (15.5-49.0); Mean Cell Volume 86.6 fL (80.0-100.0); Mean Corpuscular HGB Conc 34.1 g/dL (31.0-36.0); Monocytes # (Auto) 0.6 K/mcL (0.1-0.9); Monocytes % (Auto) 7.8 % (1.0-12.0); Platelet Count 435 K/mcL (140-440); RBC 3.52 M/mcL (4.00-5.20); Red Cell Distribution Width 12.7 % (11.5-14.5)
--- NOTE | 2018-12-04 07:39 | Internal Med Progress Note ---
Medical - PN: Subj Patient information: Note initiated : 12/04/18 at 7:35 am Service Date, if different from initiated Date: [] Patient: Naomi Corrales a 27 y/o F admitted on 11/29/18 for right lower abd pain. Chief Complaint: [] Interval history: Ms. Corrales is a 27 year old F Who presented on the with severe abdominal pain which initially started 5 days earlier but woke up on this date severe pain. Presented to ED CT scan showed a perforated appendix. She was taken back to the OR for initial laparos copic appendectomy and subsequently converted to open. During the surgery she was found to have perforated cecum as well with purulent appendicitis and localized peritonitis. Since then she started developed fevers and tachycardia today. She has some shortness of breath that associated with abdominal pain, and breathing shallow. 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 Is felt that she might not be keeping on her pain. She is 5 months and breast-feeding. She is been on Zosyn as well as Flagyl. The Dilaudid ELECTROENCEPHALOGRAPHIC TECHNICIAN pump and Tylenol Toradol as needed. Her blood pressure is good and her oxygenation is good as well, respiratory rate is around 20. She reports fevers and chills. No chest pain no headache no nausea vomiting. [place] anxious earlier but is feeling better at this time. 1/3 Feeling better today. Pain is improved with pain regimen. She feels her bowels are waking up but she has not passed any flatus, She is burping. No cough chest pain shortness of breath. Does feel feverish at the moment. 1/4 Feels feverish at times, some nausea. But otherwise no other complaints. Overall feeling improved. 1/5 Patient doing better. MAXIMUM TEMPERATURE 103 yesterday. Started on vancomycin per infectious disease specialist. White count 7.6. No abdominal pain nausea. Passing flatus. Postop management ongoing per surgery. - Constitutional Vitals: Vital Signs Temp Pulse Resp BP Pulse Ox 99.0 F 103 H 16 116/80 90 12/04/18 03:39 12/02/18 15:45 12/04/18 03:40 12/04/18 03:39 12/04/18 03:39 Period Temp Pulse Resp BP Sys/Best Pulse Ox Last 24 Hr 98.3 F-103.2 F 14-24 116-128/80-88 90-96 Intake and Output 12/03/18 12/04/18 12/04/18 21:59 05:59 13:59 Intake Total 267 / 3613 972 / 3613 Output Total 900 / 2540 Balance -633 / 1073 972 / 1073 Weight 170 lb 3.2 oz Intake & Output: Intake & Output 12/03/18 12/04/18 12/04/18 21:59 05:59 13:59 Intake Total 267 / 3613 972 / 3613 Output Total 900 / 2540 Balance -633 / 1073 972 / 1073 Weight 170 lb 3.2 oz Intake: IV 87 / 2933 972 / 2933 Dextrose 5%-1/2Ns W/20Meq KCl 1 899 / 1201 ,000 ml @ 75 mls/hr IV .[id number] COUNTS INCLUDE 234 BEDS AT THE [facility] Rx#:[id number] Zosyn 3.375 gm In Dextrose 5% 50 / 200 50 / 200 in Water 50 ml @ 100 mls/hr IV Q6H COUNTS INCLUDE 234 BEDS AT THE [facility] Rx#:[id number] Oral 180 / 680 Output: Urine Catheter Amount 600 / 1200 Void Amount 300 / 1300 Other: Urine Appearance Clear Urine Color Bright Yellow General appearance: no acute distress Exam: Alert oriented nonlabored breathing Nondistended abdomen No anxiety Medical - PN: Obj Da - Labs CBC & Chem 7: 12/04/18 03:27 12/04/18 03:27 Labs: Abnormal Lab Results 12/04/18 12/04/18 12/03/18 03:27 03:27 10:51 RBC 3.52 L Hgb 10.4 L Hct 30.5 L MPV 7.3 L Lymph % (Auto) 15.2 L Lymph # (Auto) 1.2 L Metamyelocytes % BUN 4 L Creatinine 0.5 L Glucose Uric Acid 1.4 L Calcium 8.5 L Phosphorus 4.6 H ALT NT-Pro-B Natriuret Pep 395.7 H Total Protein Albumin 2.5 L Albumin/Globulin Ratio 0.7 L 12/03/18 12/03/18 12/02/18 03:13 03:13 03:42 RBC 3.30 L Hgb 9.8 L Hct 28.5 L MPV Lymph % (Auto) 13.6 L Lymph # (Auto) 0.9 L Metamyelocytes % BUN 3 L 3 L Creatinine 0.5 L 0.5 L Glucose 112 H Uric Acid 1.1 L 1.4 L Calcium 8.1 L 8.1 L Phosphorus ALT 46 H NT-Pro-B Natriuret Pep Total Protein 5.7 L 5.6 L Albumin 2.3 L 2.3 L Albumin/Globulin Ratio 0.7 L 0.7 L 12/02/18 12/01/18 12/01/18 03:42 17:50 17:50 RBC 3.40 L 3.57 L Hgb 10.0 L 10.5 L Hct 29.0 L 30.7 L MPV Lymph % (Auto) 11.8 L Lymph # (Auto) 1.0 L Metamyelocytes % 1 H BUN 4 L Creatinine 0.5 L Glucose 109 H Uric Acid Calcium 8.2 L Phosphorus ALT NT-Pro-B Natriuret Pep Total Protein Albumin Albumin/Globulin Ratio 12/01/18 15:31 RBC Hgb Hct MPV Lymph % (Auto) Lymph # (Auto) Metamyelocytes % BUN Creatinine Glucose Uric Acid Calcium Phosphorus ALT NT-Pro-B Natriuret Pep 808.5 H Total Protein Albumin Albumin/Globulin Ratio Meds: Medications Diphenhydramine HCl (Benadryl) 25 mg IV Q6HP PRN PRN Reason: Itching Last Admin: 12/04/18 03:04 Dose: 25 mg Documented by: Docusate Sodium (Colace) 100 mg PO BID COUNTS INCLUDE 234 BEDS AT THE [facility] Last Admin: 12/03/18 21:19 Dose: 100 mg Documented by: Enoxaparin Sodium (Lovenox) 40 mg SQ DAILY COUNTS INCLUDE 234 BEDS AT THE [facility] Last Admin: 12/03/18 09:02 Dose: 40 mg Documented by: Famotidine (Pepcid) 20 mg IV Q12 COUNTS INCLUDE 234 BEDS AT THE [facility] Last Admin: 12/03/18 21:19 Dose: 20 mg Documented by: Flumazenil (Romazicon) 0.2 mg IV Q1MIN PRN PRN Reason: BENZODIAZEPINE REVERSAL Hydromorphone HCl (Dilaudid Court Recording Monitor) 30 mg IV UD PRN; Protocol PRN Reason: Pain Last Admin: 12/02/18 23:04 Dose: 30 mg Documented by: Sodium Chloride (Sodium Chloride 0.9%) 250 mls @ 20 mls/hr IV .[id number] COUNTS INCLUDE 234 BEDS AT THE [facility] Last Admin: 12/03/18 15:31 Dose: Not Given Documented by: Piperacillin Sod/Tazobactam (Sod 3.375 gm/ Dextrose) 50 mls @ 100 mls/hr IV Q6H COUNTS INCLUDE 234 BEDS AT THE [facility] Last Admin: 12/04/18 05:39 Dose: 100 mls/hr Documented by: Acetaminophen (Ofirmev) 1,000 mg in 100 mls @ 200 mls/hr IV Q8H COUNTS INCLUDE 234 BEDS AT THE [facility] Last Admin: 12/04/18 02:08 Dose: 200 mls/hr Documented by: Potassium Chloride/Dextrose/Sod Cl (Dextrose 5%-1/2ns W/20meq Kcl) 1,000 mls @ 75 mls/hr IV .[id number] COUNTS INCLUDE 234 BEDS AT THE [facility] Last Admin: 12/04/18 01:03 Dose: 75 mls/hr Documented by: Iron Carb/Multivit/[place]/Folic Acid (Multivitamin W/Minerals) 1 tab PO DAILY COUNTS INCLUDE 234 BEDS AT THE [facility] Last Admin: 12/03/18 09:02 Dose: 1 tab Documented by: Lorazepam (Ativan) 0.5 mg PO Q12HP PRN PRN Reason: ANXIETY/SEDATION Last Admin: 12/02/18 03:24 Dose: 0.5 mg Documented by: Metoclopramide HCl (Reglan) 5 mg PO Q6H COUNTS INCLUDE 234 BEDS AT THE [facility] Last Admin: 12/04/18 05:38 Dose: 5 mg Documented by: Naloxone HCl (Narcan) 0.1 mg IV Q2MIN PRN PRN Reason: Opiate Reversal Ondansetron HCl (Zofran Odt) 4 mg SL Q4-6HP PRN PRN Reason: Nausea And Vomiting Last Admin: 12/03/18 15:30 Dose: 4 mg Documented by: Sodium Chloride (Saline Flush) 10 ml IV Q8 COUNTS INCLUDE 234 BEDS AT THE [facility] Last Admin: 12/04/18 05:39 Dose: Not Given Documented by: Medical - PN: A/P - Time Spent With Patient Total time spent is greater than 50% in coordination of care (as documented) at patient's floor/unit and/or counseling patient: 15 - 24 minutes (1) Acute appendicitis with perforation, localized peritonitis, and abscess Status: Acute Assessment and plan: *Perforated appendix with acute peritonitis: s/p surgical intervention (11/29). On broad antibiotic coverage. Antibodies escalated by infectious disease specialist in light of persistent fever. Polymicrobial culture abdominal fluid * 5 months: *Tachycardia/Fever: Surveillance cultures pending. Intraoral imaging unremarkable. Antibiotics spectrum extended *Post-op Anemia: Stable P: -Abx per ID -Diet advancement per surgery -ppx: lovenox/pepcid Current Visit: Yes Medical - PN: Qual - VTE Deep Vein Thrombosis/Pulmonary Embolism Present on Admission: No
[2018-12-04] MEDS ORDERED: VANCOMYCIN PER PHARMACY IV SCH ×2 (08:15)
[2018-12-04] MEDS: 0.9 % SODIUM CHLORIDE 250 ML IV SCH ×2 (08:28→17:16)
[2018-12-04] MEDS: MULTIVIT,THER IRON,CA,FA & MIN 1 TABLET PO SCH (08:32)
[2018-12-04] MEDS: VANCOMYCIN 1,000 MG in 0.9 % SODIUM CHLORIDE 250 ML IV SCH ×2 (08:32→20:13)
[2018-12-04] MEDS: FAMOTIDINE/PF 20 MG/2 ML VIAL IV SCH ×2 (08:32→20:14)
[2018-12-04] MEDS: ENOXAPARIN 40 MG/0.4 ML SYRINGE SQ SCH (08:33)
[2018-12-04] MEDS: DOCUSATE SODIUM 100 MG CAPSULE PO SCH ×2 (08:33→20:13)
[2018-12-04] MEDS ORDERED: VANCOMYCIN 1,000 MG in 0.9 % SODIUM CHLORIDE 250 ML IV SCH (09:00)
[2018-12-04] MEDS ORDERED: ACETAMINOPHEN 650 MG/65 ML BOTTLE IV PRN (09:50)
--- NOTE | 2018-12-04 13:20 | General Surgery Progress Note ---
Subjective Patient reports: feels better, still having pain, pain is less, tolerating liquids well, flatus, no bowel movement Narrative: Note initiated : 12/04/18 at 1:18 pm Service Date, if different from initiated Date: [] Patient: Naomi Corrales 27 y/o F admitted on 11/29/18 for right lower abd pain. Chief Complaint: [] Objective Temp Pulse Resp BP Pulse Ox 99.0 F 103 H 18 110/71 94 12/04/18 12:00 12/02/18 15:45 12/04/18 12:00 12/04/18 12:00 12/04/18 12:00 - Additional Data Intake & Output - Last 24 hours: Intake & Output 12/02/18 12/03/18 12/04/18 12/05/18 05:59 05:59 05:59 05:59 Intake Total 4130 / 4130 5540 / 5540 3613 / 3613 1353 / 1353 Output Total 2765 / 2765 2245 / 2245 2540 / 2540 450 / 450 Balance 1365 / 1365 3295 / 3295 1073 / 1073 903 / 903 Weight 172 lb 8 oz 171 lb 170 lb 3.2 oz - General physical appearance moderate distress, moderate pain - Eyes PERRL, normal ocular movement - ENT normal pinna, normal nares, normal mucosa, no hearing loss, no congestion - Neck no masses, no bruits, trachea midline, no lymphadenopathy, no venous distension - Respiratory normal expansion, normal respiratory effort, clear to percussion, clear to auscultation - Cardiovascular Cardiovascular exam: Present: normal rate and rhythm, tachycardia. Absent: JVD - Abdomen tender (mild tenderness around surgical sites; active bowel sounds; [place] drainage is serous) - Integumentary no rash, no growths, no abnormal pigmentation - Neurologic normal coordination, normal sensation - Musculoskeletal normal gait, normal posture - Psychiatric oriented to time, oriented to person, oriented to place, speech is normal, memory intact - Labs 12/04/18 03:27 12/04/18 03:27 Diabetes panel 12/04/18 Range/Units 03:27 Sodium 139 (133-145) mmol/L Potassium 4.1 (3.3-5.1) mmol/L Chloride 100 (96-108) mmol/L Carbon Dioxide 28 (22-30) mmol/L BUN 4 L (6-20) mg/dl Creatinine 0.5 L (0.6-1.1) mg/dl Glucose 93 (70-105) mg/dL Calcium 8.5 L (8.6-10.4) mg/dl AST 19 (0-37) U/l ALT 34 (0-40) U/l Alkaline Phosphatase 105 (39-117) U/L Total Protein 6.1 (5.9-8.4) gm/dL Albumin 2.5 L (3.2-5.2) gm/dL Triglycerides 106 (<150) mg/dl Calcium panel 12/04/18 Range/Units 03:27 Calcium 8.5 L (8.6-10.4) mg/dl Phosphorus 4.6 H (2.7-4.5) mg/dL Albumin 2.5 L (3.2-5.2) gm/dL Pituitary panel 12/04/18 Range/Units 03:27 Sodium 139 (133-145) mmol/L Potassium 4.1 (3.3-5.1) mmol/L Chloride 100 (96-108) mmol/L Carbon Dioxide 28 (22-30) mmol/L BUN 4 L (6-20) mg/dl Creatinine 0.5 L (0.6-1.1) mg/dl Glucose 93 (70-105) mg/dL Calcium 8.5 L (8.6-10.4) mg/dl Adrenal panel 12/04/18 Range/Units 03:27 Sodium 139 (133-145) mmol/L Potassium 4.1 (3.3-5.1) mmol/L Chloride 100 (96-108) mmol/L Carbon Dioxide 28 (22-30) mmol/L BUN 4 L (6-20) mg/dl Creatinine 0.5 L (0.6-1.1) mg/dl Glucose 93 (70-105) mg/dL Calcium 8.5 L (8.6-10.4) mg/dl Total Bilirubin 0.3 (0.0-1.0) mg/dL AST 19 (0-37) U/l ALT 34 (0-40) U/l Alkaline Phosphatase 105 (39-117) U/L Total Protein 6.1 (5.9-8.4) gm/dL Albumin 2.5 L (3.2-5.2) gm/dL Assessment and Plan (1) Acute appendicitis with perforation, localized peritonitis, and abscess Status: Acute Assessment and plan: Continue present therapy Follow-up CBC in the morning Current Visit: Yes - Time Spent With Patient Total time spent is greater than 50% in coordination of care (as documented) at patient's floor/unit and/or counseling patient:
[2018-12-04] MEDS: ACYCLOVIR 400 MG TABLET PO SCH ×2 (17:38→20:13)
[2018-12-05] MEDS: PIPERACILLIN SODIUM/TAZOBACTAM 3.375 GM in DEXTROSE 5% IN WATER 50 ML IV SCH ×2 (01:24→05:47)
[2018-12-05] MEDS: METOCLOPRAMIDE 10 MG TABLET PO SCH ×3 (01:24→13:32)
[2018-12-05] MEDS: DEXTROSE 5%-1/2NS W/20MEQ KCL 1,000 ML IV SCH ×3 (04:06→18:58)
[2018-12-05 05:27] LABS: Mean Cell Volume 85.2 fL (80.0-100.0); Mean Corpuscular HGB Conc 34.4 g/dL (31.0-36.0); Platelet Count 469 K/mcL (140-440); RBC 3.62 M/mcL (4.00-5.20)
[2018-12-05] MEDS: 0.9 % SODIUM CHLORIDE 10 ML SYRINGE IV SCH ×3 (05:48→21:28)
[2018-12-05] MEDS: 0.9 % SODIUM CHLORIDE 250 ML IV SCH ×2 (05:48→19:20)
[2018-12-05 05:51] LABS: ALT/SGPT 37 U/l (0-40); Albumin 2.5 gm/dL (3.2-5.2); Albumin/Globulin Ratio 0.6 (1.0-2.3); Alkaline Phosphatase 99 U/L (39-117); Bilirubin,Direct < 0.2 mg/dL (0.0-0.3); Blood Urea Nitrogen 3 mg/dl (6-20); Gamma Glutamyl Transpeptidase 25 U/L (5-36); Uric Acid 1.6 mg/dL (2.5-8.0)
--- NOTE | 2018-12-05 06:02 | Event Note ---
Pt continues to have intermittent fevers, up to 38.2 C off Ofirmev. New onset of right sided belly pain, along with uptrending WBCs is ominous and suggests a focus of infection. Given patient's atlectesis, right sided pleural effusion, and recent surgery; she could have a focus of infection in any of these areas and suggest lack of source control. Therefore, I would suggest: - doing repeat CT imaging of chest, abdomen and pelvis. - The current antibiotics seem adequate in broad-spectrum coverage. I would suggest increasing dose of Zosyn to 4.5 gm q6 hrs (to cover any possible Pse udomonas). - Check a repeat serum Procalcitonin and lactic acid Reginaldo Calvert MD Infectious disease
[2018-12-05 06:14] LABS: Band Neutrophils % 9 % (0-10); Lymphocytes % 19 % (15-49); Monocytes % (Manual) 3 % (1-12); Platelet Estimate INCREASED (NORMAL); RBC Morphology NORMAL (NORMAL); Segmented Neutrophils % 69 % (38-78); Toxic Granulation 1+ (NONE SEEN)
--- NOTE | 2018-12-05 07:54 | Internal Med Progress Note ---
Medical - PN: Subj Patient information: Note initiated : 12/05/18 at 7:51 am Service Date, if different from initiated Date: [] Patient: Naomi Corrales a 27 y/o F admitted on 11/29/18 for right lower abd pain. Chief Complaint: [] Interval history: Ms. Corrales is a 27 year old F Who presented on the with severe abdominal pain which initially started 5 days earlier but woke up on this date severe pain. Presented to ED CT scan showed a perforated appendix. She was taken back to the OR for initial laparos copic appendectomy and subsequently converted to open. During the surgery she was found to have perforated cecum as well with purulent appendicitis and localized peritonitis. Since then she started developed fevers and tachycardia today. She has some shortness of breath that associated with abdominal pain, and breathing shallow. Still has a lot of abdominal pain and has not maxed out the Dilaudid GEAR TECHNICIAN pump. Is felt that she might not be keeping on her pain. She is 5 months and breast-feeding. She is been on Zosyn as well as Flagyl. The Dilaudid GEAR TECHNICIAN pump and Tylenol Toradol as needed. Her blood pressure is good and her oxygenation is good as well, respiratory rate is around 20. She reports fevers and chills. No chest pain no headache no nausea vomiting. [place] anxious earlier but is feeling better at this time. 1/3 Feeling better today. Pain is improved with pain regimen. She feels her bowels are waking up but she has not passed any flatus, She is burping. No cough chest pain shortness of breath. Does feel feverish at the moment. 1/4 Feels feverish at times, some nausea. But otherwise no other complaints. Overall feeling improved. 1/5 Patient doing better. MAXIMUM TEMPERATURE 103 yesterday. Started on vancomycin per infectious disease specialist. White count 7.6. No abdominal pain nausea. Passing flatus. Postop management ongoing per surgery. 12/05-patient doing well. No overnight events except for low-grade fevers. No concerns per staff. Infectious disease specialist recommend CT abdomen chest pelvis in light of intermittent fever. ID also increased Zosyn to 4.5 g. Surgery on board. - Constitutional Vitals: Vital Signs Temp Pulse Resp BP Pulse Ox 98.6 F 103 H 18 130/62 92 12/05/18 04:00 12/02/18 15:45 12/05/18 04:00 12/05/18 00:00 12/05/18 04:00 Period Temp Pulse Resp BP Sys/Best Pulse Ox Last 24 Hr 98.6 F-100.7 F 18-24 110-130/62-89 91-96 Intake and Output 12/04/18 12/05/18 12/05/18 21:59 05:59 13:59 Intake Total 350 / 3293 1300 / 3293 Output Total 1820 / 3870 1600 / 3870 Balance -1470 / -577 -300 / -577 Weight 169 lb 12.8 oz Intake & Output: Intake & Output 12/04/18 12/05/18 12/05/18 21:59 05:59 13:59 Intake Total 350 / 3293 1300 / 3293 Output Total 1820 / 3870 1600 / 3870 Balance -1470 / -577 -300 / -577 Weight 169 lb 12.8 oz Intake: IV 50 / 2533 1300 / 2533 Dextrose 5%-1/2Ns W/20Meq KCl 1 1000 / 1833 ,000 ml @ 75 mls/hr IV .[id number] [facility] Rx#:[id number] Zosyn 3.375 gm In Dextrose 5% 50 / 200 50 / 200 in Water 50 ml @ 100 mls/hr IV Q6H [facility] Rx#:[id number] Vancomycin 1,000 mg In Sodium 250 / 500 Chloride 0.9% 250 ml @ 250 mls/ hr IV Q12H [facility] Rx#:[id number] Oral 300 / 760 Output: Drainage 20 / 20 A 15 / 15 B 5 / 5 Void Amount 1800 / 3850 1600 / 3850 Other: Meal Dinner Percent of Meal Consumed 50% Feeding Ability Independent Urine Appearance Clear Sediment Urine Color Bright Yellow Bright Yellow Urine Odor Normal # Voids 1 2 General appearance: no acute distress Exam: Alert oriented Nonlabored breathing Nondistended abdomen Medical - PN: Obj Da - Labs CBC & Chem 7: 12/05/18 04:59 12/05/18 04:59 Labs: Abnormal Lab Results 12/05/18 12/05/18 12/04/18 04:59 04:59 03:27 WBC 11.2 H RBC 3.62 L Hgb 10.6 L Hct 30.9 L Plt Count 469 H MPV 6.9 L Lymph % (Auto) Lymph # (Auto) WBC Morphology Abnorm A Hypersegmented Polys Few A Toxic Granulation 1+ A BUN 3 L 4 L Creatinine 0.5 L Uric Acid 1.6 L 1.4 L Calcium 8.5 L Phosphorus 4.6 H NT-Pro-B Natriuret Pep Total Protein Albumin 2.5 L 2.5 L Globulin 4.0 H Albumin/Globulin Ratio 0.6 L 0.7 L 12/04/18 12/03/18 12/03/18 03:27 10:51 03:13 WBC RBC 3.52 L Hgb 10.4 L Hct 30.5 L Plt Count MPV 7.3 L Lymph % (Auto) 15.2 L Lymph # (Auto) 1.2 L WBC Morphology Hypersegmented Polys Toxic Granulation BUN 3 L Creatinine 0.5 L Uric Acid 1.1 L Calcium 8.1 L Phosphorus NT-Pro-B Natriuret Pep 395.7 H Total Protein 5.7 L Albumin 2.3 L Globulin Albumin/Globulin Ratio 0.7 L 12/03/18 03:13 WBC RBC 3.30 L Hgb 9.8 L Hct 28.5 L Plt Count MPV Lymph % (Auto) 13.6 L Lymph # (Auto) 0.9 L WBC Morphology Hypersegmented Polys Toxic Granulation BUN Creatinine Uric Acid Calcium Phosphorus NT-Pro-B Natriuret Pep Total Protein Albumin Globulin Albumin/Globulin Ratio Meds: Medications Acyclovir (Zovirax) 200 mg PO 5XD [facility] Last Admin: 12/04/18 20:13 Dose: 200 mg Documented by: Diphenhydramine HCl (Benadryl) 25 mg IV Q6HP PRN PRN Reason: Itching Last Admin: 12/04/18 03:04 Dose: 25 mg Documented by: Docusate Sodium (Colace) 100 mg PO BID [facility] Last Admin: 12/04/18 20:13 Dose: 100 mg Documented by: Enoxaparin Sodium (Lovenox) 40 mg SQ DAILY [facility] Last Admin: 12/04/18 08:33 Dose: 40 mg Documented by: Famotidine (Pepcid) 20 mg IV Q12 [facility] Last Admin: 12/04/18 20:14 Dose: 20 mg Documented by: Flumazenil (Romazicon) 0.2 mg IV Q1MIN PRN PRN Reason: BENZODIAZEPINE REVERSAL Hydromorphone HCl (Dilaudid Slot Key Person) 30 mg IV UD PRN; Protocol PRN Reason: Pain Last Admin: 12/02/18 23:04 Dose: 30 mg Documented by: Sodium Chloride (Sodium Chloride 0.9%) 250 mls @ 20 mls/hr IV .[id number] [facility] Last Admin: 12/05/18 05:48 Dose: Not Given Documented by: Potassium Chloride/Dextrose/Sod Cl (Dextrose 5%-1/2ns W/20meq Kcl) 1,000 mls @ 75 mls/hr IV .[id number] [facility] Last Admin: 12/05/18 04:06 Dose: 75 mls/hr Documented by: Vancomycin HCl 1,000 mg/ (Sodium Chloride) 250 mls @ 250 mls/hr IV Q12H [facility] Last Infusion: 12/05/18 04:09 Dose: Infused Documented by: Acetaminophen (Ofirmev) 650 mg in 65 mls @ 130 mls/hr IV Q6HP PRN PRN Reason: PAIN/FEVER > 101 Last Admin: 12/05/18 04:12 Dose: 130 mls/hr Documented by: Piperacillin Sod/Tazobactam (Sod 4.5 gm/ Dextrose) 50 mls @ 100 mls/hr IV Q6H [facility] Iron Carb/Multivit/Food Scientist/Folic Acid (Multivitamin W/Minerals) 1 tab PO DAILY [facility] Last Admin: 12/04/18 08:32 Dose: 1 tab Documented by: Lorazepam (Ativan) 0.5 mg PO Q12HP PRN PRN Reason: ANXIETY/SEDATION Last Admin: 12/02/18 03:24 Dose: 0.5 mg Documented by: Magnesium Hydroxide (Milk Of Magnesia) 30 ml PO DAILY [facility] Metoclopramide HCl (Reglan) 5 mg PO Q6H [facility] Last Admin: 12/05/18 05:47 Dose: 5 mg Documented by: Naloxone HCl (Narcan) 0.1 mg IV Q2MIN PRN PRN Reason: Opiate Reversal Ondansetron HCl (Zofran Odt) 4 mg SL Q4-6HP PRN PRN Reason: Nausea And Vomiting Last Admin: 12/03/18 15:30 Dose: 4 mg Documented by: Sodium Chloride (Saline Flush) 10 ml IV Q8 [facility] Last Admin: 12/05/18 05:48 Dose: Not Given Documented by: Vancomycin HCl (Vancomycin Per Pharmacy) 1 order IV UD [facility] Medical - PN: A/P - Time Spent With Patient Total time spent is greater than 50% in coordination of care (as documented) at patient's floor/unit and/or counseling patient: 15 - 24 minutes (1) Acute appendicitis with perforation, localized peritonitis, and abscess Status: Acute Assessment and plan: * Perforated appendix with acute peritonitis: s/p surgical intervention (11/29). On broad antibiotic coverage. Antibodies escalated by infectious disease specialist in light of persistent fever. Polymicrobial culture abdominal fluid * Persistent fever-ID recommends a CT abdomen chest pelvis for further evaluatio n versus. Also increase dose and dosing to 4.5. Check pro-calcitonin * 5 months: * Post-op Anemia: Stable P: * Continue Zosyn/vancomycin per ID * CT abdomen chest pelvis with contrast per ID * Pro calcitonin * Postop management per surgery * Prophylaxis Lovenox Current Visit: Yes Medical - PN: Qual - VTE Deep Vein Thrombosis/Pulmonary Embolism Present on Admission: No
[2018-12-05] MEDS: HYDROmorphone PCA 30 MG/30 ML PCA.VIAL IV PRN (09:33)
[2018-12-05] MEDS: ONDANSETRON 4 MG ODT TABLET SL PRN ×4 (09:33→19:19)
[2018-12-05] MEDS ORDERED: VANCOMYCIN 1,500 MG in 0.9 % SODIUM CHLORIDE 500 ML IV SCH (10:00)
[2018-12-05] MEDS: LORazepam 1 MG TABLET PO PRN (10:04)
[2018-12-05] MEDS ORDERED: HYDROmorphone 2 MG/ML VIAL ONE (10:25)
--- NOTE | 2018-12-05 10:28 | Internal Med Progress Note ---
Medical - PN: Subj Patient information: Note initiated : 12/05/18 at 10:24 am Service Date, if different from initiated Date: [] Patient: Naomi Corrales a 27 y/o F admitted on 11/29/18 for right lower abd pain. Chief Complaint: [] Interval history: Ms. Corrales is a 27 year old F Who presented on the with severe abdominal pain which initially started 5 days earlier but woke up on this date severe pain. Presented to ED CT scan showed a perforated appendix. She was taken back to the OR for initial laparo scopic appendectomy and subsequently converted to open. During the surgery she was found to have perforated cecum as well with purulent appendicitis and localized peritonitis. Since then she started developed fevers and tachycardia today. She has some shortness of breath that associated with abdominal pain, and breathing shallow. Still has a lot of abdominal pain and has not maxed out the Dilaudid [employer] pump. Is felt that she might not be keeping on her pain. She is 5 months and breast-feeding. She is been on Zosyn as well as Flagyl. The Dilaudid [employer] pump and Tylenol Toradol as needed. Her blood pressure is good and her oxygenation is good as well, respiratory rate is around 20. She reports fevers and chills. No chest pain no headache no nausea vomiting. [place] anxious earlier but is feeling better at this time. 1/3 Feeling better today. Pain is improved with pain regimen. She feels her bowels are waking up but she has not passed any flatus, She is burping. No cough chest pain shortness of breath. Does feel feverish at the moment. 1/ Feels feverish at times, some nausea. But otherwise no other complaints. Overall feeling improved. 1/5 Patient doing better. MAXIMUM TEMPERATURE 103 yesterday. Started on vancomycin per infectious disease specialist. White count 7.6. No abdominal pain nausea. Passing flatus. Postop management ongoing per surgery. 12/05-patient doing well. No overnight events except for low-grade fevers. No concerns per staff. Infectious disease specialist recommend CT abdomen chest pelvis in light of intermittent fever. ID also increased Zosyn to 4.5 g. Surgery on board. Review of Systems: denies headache/chills/vomiting/chest pain/cough/dyspnea/diarrhea. Otherwise see above. - Constitutional Vitals: Vital Signs Temp Pulse Resp BP Pulse Ox 98.4 F 103 H 16 111/72 96 12/05/18 08:00 12/02/18 15:45 12/05/18 09:33 12/05/18 08:00 12/05/18 08:00 Period Temp Pulse Resp BP Sys/Best Pulse Ox Last 24 Hr 98.4 F-100.7 F 16-24 110-130/62-80 91-96 Intake and Output 12/04/18 12/05/18 12/05/18 21:59 05:59 13:59 Intake Total 350 / 3293 1300 / 3293 460 / 460 Output Total 1820 / 3870 1600 / 3870 100 / 100 Balance -1470 / -577 -300 / -577 360 / 360 Weight 77.02 kg Intake & Output: Intake & Output 12/04/18 12/05/18 12/05/18 21:59 05:59 13:59 Intake Total 350 / 3293 1300 / 3293 460 / 460 Output Total 1820 / 3870 1600 / 3870 100 / 100 Balance -1470 / -577 -300 / -577 360 / 360 Weight 77.02 kg Intake: IV 50 / 2533 1300 / 2533 Dextrose 5%-1/2Ns W/20Meq KCl 1 1000 / 1833 ,000 ml @ 75 mls/hr IV .[id number] [facility] Rx#:[id number] Zosyn 3.375 gm In Dextrose 5% 50 / 200 50 / 200 in Water 50 ml @ 100 mls/hr IV Q6H [facility] Rx#:[id number] Vancomycin 1,000 mg In Sodium 250 / 500 Chloride 0.9% 250 ml @ 250 mls/ hr IV Q12H [facility] Rx#:[id number] Oral 300 / 760 460 / 460 Output: Drainage 20 / 20 A 15 / 15 B 5 / 5 Void Amount 1800 / 3850 1600 / 3850 100 / 100 Other: Meal Dinner Percent of Meal Consumed 50% Feeding Ability Independent Urine Appearance Clear Sediment Urine Color Bright Yellow Bright Yellow Urine Odor Normal Stool Consistency Liquid # Voids 1 2 1 # Bowel Movements 1 Exam: General: Alert, Awake, No acute Distress Eyes/N/T: EOMI, Head/Neck: neck supple, CV: RRR, No murmurs Pulm: Clear b/l, no wheezing/rhonchi/rales Abd: soft, TTP, BS Ext: no clubbing/cyanosis, trace-1+ b/l LE edema Neuro: Alert, no focal deficits, moves all extremities, Skin: warm/dry Medical - PN: Obj Da - Labs CBC & Chem 7: 12/05/18 04:59 12/05/18 04:59 Labs: Abnormal Lab Results 12/05/18 12/05/18 12/04/18 04:59 04:59 03:27 WBC 11.2 H RBC 3.62 L Hgb 10.6 L Hct 30.9 L Plt Count 469 H MPV 6.9 L Lymph % (Auto) Lymph # (Auto) WBC Morphology Abnorm A Hypersegmented Polys Few A Toxic Granulation 1+ A BUN 3 L 4 L Creatinine 0.5 L Uric Acid 1.6 L 1.4 L Calcium 8.5 L Phosphorus 4.6 H NT-Pro-B Natriuret Pep Total Protein Albumin 2.5 L 2.5 L Globulin 4.0 H Albumin/Globulin Ratio 0.6 L 0.7 L 12/04/18 12/03/18 12/03/18 03:27 10:51 03:13 WBC RBC 3.52 L Hgb 10.4 L Hct 30.5 L Plt Count MPV 7.3 L Lymph % (Auto) 15.2 L Lymph # (Auto) 1.2 L WBC Morphology Hypersegmented Polys Toxic Granulation BUN 3 L Creatinine 0.5 L Uric Acid 1.1 L Calcium 8.1 L Phosphorus NT-Pro-B Natriuret Pep 395.7 H Total Protein 5.7 L Albumin 2.3 L Globulin Albumin/Globulin Ratio 0.7 L 12/03/18 03:13 WBC RBC 3.30 L Hgb 9.8 L Hct 28.5 L Plt Count MPV Lymph % (Auto) 13.6 L Lymph # (Auto) 0.9 L WBC Morphology Hypersegmented Polys Toxic Granulation BUN Creatinine Uric Acid Calcium Phosphorus NT-Pro-B Natriuret Pep Total Protein Albumin Globulin Albumin/Globulin Ratio Meds: Medications Acyclovir (Zovirax) 200 mg PO 5XD [facility] Last Admin: 12/04/18 20:13 Dose: 200 mg Documented by: Diphenhydramine HCl (Benadryl) 25 mg IV Q6HP PRN PRN Reason: Itching Last Admin: 12/04/18 03:04 Dose: 25 mg Documented by: Docusate Sodium (Colace) 100 mg PO BID [facility] Last Admin: 12/04/18 20:13 Dose: 100 mg Documented by: Enoxaparin Sodium (Lovenox) 40 mg SQ DAILY [facility] Last Admin: 12/04/18 08:33 Dose: 40 mg Documented by: Famotidine (Pepcid) 20 mg IV Q12 [facility] Last Admin: 12/04/18 20:14 Dose: 20 mg Documented by: Flumazenil (Romazicon) 0.2 mg IV Q1MIN PRN PRN Reason: BENZODIAZEPINE REVERSAL Hydromorphone HCl (Dilaudid Pulper) 30 mg IV UD PRN; Protocol PRN Reason: Pain Last Admin: 12/05/18 09:33 Dose: 30 mg Documented by: Sodium Chloride (Sodium Chloride 0.9%) 250 mls @ 20 mls/hr IV .[id number] [facility] Last Admin: 12/05/18 05:48 Dose: Not Given Documented by: Potassium Chloride/Dextrose/Sod Cl (Dextrose 5%-1/2ns W/20meq Kcl) 1,000 mls @ 75 mls/hr IV .[id number] [facility] Last Admin: 12/05/18 04:06 Dose: 75 mls/hr Documented by: Acetaminophen (Ofirmev) 650 mg in 65 mls @ 130 mls/hr IV Q6HP PRN PRN Reason: PAIN/FEVER > 101 Last Admin: 12/05/18 04:12 Dose: 130 mls/hr Documented by: Piperacillin Sod/Tazobactam (Sod 4.5 gm/ Dextrose) 50 mls @ 100 mls/hr IV Q6H [facility] Vancomycin HCl 1,500 mg/ (Sodium Chloride) 500 mls @ 333.3 mls/hr IV Q12H [facility] Iron Carb/Multivit/[employer]iter/Folic Acid (Multivitamin W/Minerals) 1 tab PO DAILY [facility] Last Admin: 12/04/18 08:32 Dose: 1 tab Documented by: Lorazepam (Ativan) 0.5 mg PO Q12HP PRN PRN Reason: ANXIETY/SEDATION Last Admin: 12/05/18 10:04 Dose: 0.5 mg Documented by: Magnesium Hydroxide (Milk Of Magnesia) 30 ml PO DAILY [facility] Metoclopramide HCl (Reglan) 5 mg PO Q6H [facility] Last Admin: 12/05/18 05:47 Dose: 5 mg Documented by: Naloxone HCl (Narcan) 0.1 mg IV Q2MIN PRN PRN Reason: Opiate Reversal Ondansetron HCl (Zofran Odt) 4 mg SL Q4-6HP PRN PRN Reason: Nausea And Vomiting Last Admin: 12/05/18 09:33 Dose: 4 mg Documented by: Sodium Chloride (Saline Flush) 10 ml IV Q8 [facility] Last Admin: 12/05/18 05:48 Dose: Not Given Documented by: Vancomycin HCl (Vancomycin Per Pharmacy) 1 order IV UD [facility] Medical - PN: A/P - Time Spent With Patient Total time spent is greater than 50% in coordination of care (as documented) at patient's floor/unit and/or counseling patient: - Narrative A/P Narrative: A: *Perforated appendix: s/p surgical intervention (11/29) *Acute peritonitis: 2/2 above *Persistent Fever/tachy: -CTA chest no PE, CT a/p no unexpected findings -c. diff neg, lactate wnl as well as repeat -Also with Atelectasis -PCT improving, * 5 months: *Post-op Anemia: P: -Abx per ID; pending intraop cx's, -pending CT c/a/p -IS -encourage patient to keep on top of pain with [employer] pump, prn tylenol/toradol -Ambulation - -ppx: lovenox/pepcid Medical - PN: Qual - VTE Deep Vein Thrombosis/Pulmonary Embolism Present on Admission: No
[2018-12-05] MEDS ORDERED: HYDROmorphone 2 MG/ML VIAL IV ONE ×2 (10:31→16:45)
[2018-12-05] MEDS: ACYCLOVIR 400 MG TABLET PO SCH ×4 (10:59→21:28)
[2018-12-05] MEDS: FAMOTIDINE/PF 20 MG/2 ML VIAL IV SCH ×2 (11:03→21:28)
[2018-12-05] MEDS: ENOXAPARIN 40 MG/0.4 ML SYRINGE SQ SCH (11:03)
[2018-12-05] MEDS: MAGNESIUM HYDROXIDE 30 ML ORAL.SUSP PO SCH ×2 (11:05→14:47)
[2018-12-05] MEDS: MULTIVIT,THER IRON,CA,FA & MIN 1 TABLET PO SCH (11:05)
[2018-12-05] MEDS: DOCUSATE SODIUM 100 MG CAPSULE PO SCH ×2 (11:06→21:28)
[2018-12-05] MEDS ORDERED: IOPAMIDOL 100 ML BOTTLE IV ONE (11:07)
--- NOTE | 2018-12-05 11:22 | General Surgery Progress Note ---
Subjective Patient reports: still having pain, flatus, no bowel movement, fever Narrative: Note initiated : 12/05/18 at 11:17 am Service Date, if different from initiated Date: [] Patient: Naomi Corrales 27 y/o F admitted on 11/29/18 for right lower abd pain. Chief ComplaINT--- patient continues to have right-sided abdominal pain. Her white count is finally starting to rise.. CT of abdomen and chest shows trac logan of gas in the subcutaneous plane extending into the right flank suggesting inflammatory process in the deep subcutaneous tissue which is the source of her infection. There does not appear to be any intra-abdominal collection of gas or liquid. The wound was open and a moderate amount of purulent drainage was removed. Patient is advised that her wound will need to be explored under anesthesia in order to clean up her wound..] Objective Temp Pulse Resp BP Pulse Ox 98.7 F 103 H 24 H 121/83 96 12/05/18 11:10 12/02/18 15:45 12/05/18 11:10 12/05/18 11:10 12/05/18 11:10 - Additional Data Intake & Output - Last 24 hours: Intake & Output 12/03/18 12/04/18 12/05/18 12/06/18 05:59 05:59 05:59 05:59 Intake Total 5540 / 5540 3613 / 3613 3293 / 3293 460 / 460 Output Total 2245 / 2245 2540 / 2540 3870 / 3870 1100 / 1100 Balance 3295 / 3295 1073 / 1073 -577 / -577 -640 / -640 Weight 171 lb 170 lb 3.2 oz 169 lb 12.8 oz - General physical appearance well developed, well nourished, no distress, severe distress, severe pain - Eyes PERRL, normal ocular movement - ENT normal pinna, normal nares, normal mucosa, no hearing loss, no congestion - Neck no masses, no bruits, trachea midline, no lymphadenopathy, no venous distension - Respiratory normal expansion, normal respiratory effort, clear to auscultation - Cardiovascular Cardiovascular exam: Present: normal rate and rhythm, tachycardia - Abdomen tender (diffusely tender right sided abdominal wall with purulent drainage from incision) - Integumentary no rash, no growths, no abnormal pigmentation - Neurologic normal coordination, normal sensation - Musculoskeletal normal gait, normal posture - Psychiatric oriented to time, oriented to person, oriented to place, speech is normal, memory intact - Labs 12/05/18 04:59 12/05/18 04:59 Diabetes panel 12/05/18 Range/Units 04:59 Sodium 134 (133-145) mmol/L Potassium 4.1 (3.3-5.1) mmol/L Chloride 99 (96-108) mmol/L Carbon Dioxide 24 (22-30) mmol/L BUN 3 L (6-20) mg/dl Creatinine 0.7 (0.6-1.1) mg/dl Glucose 100 (70-105) mg/dL Calcium 8.6 (8.6-10.4) mg/dl AST 25 (0-37) U/l ALT 37 (0-40) U/l Alkaline Phosphatase 99 (39-117) U/L Total Protein 6.5 (5.9-8.4) gm/dL Albumin 2.5 L (3.2-5.2) gm/dL Triglycerides 99 (<150) mg/dl Calcium panel 12/05/18 Range/Units 04:59 Calcium 8.6 (8.6-10.4) mg/dl Phosphorus 4.5 (2.7-4.5) mg/dL Albumin 2.5 L (3.2-5.2) gm/dL Pituitary panel 12/05/18 Range/Units 04:59 Sodium 134 (133-145) mmol/L Potassium 4.1 (3.3-5.1) mmol/L Chloride 99 (96-108) mmol/L Carbon Dioxide 24 (22-30) mmol/L BUN 3 L (6-20) mg/dl Creatinine 0.7 (0.6-1.1) mg/dl Glucose 100 (70-105) mg/dL Calcium 8.6 (8.6-10.4) mg/dl Adrenal panel 12/05/18 Range/Units 04:59 Sodium 134 (133-145) mmol/L Potassium 4.1 (3.3-5.1) mmol/L Chloride 99 (96-108) mmol/L Carbon Dioxide 24 (22-30) mmol/L BUN 3 L (6-20) mg/dl Creatinine 0.7 (0.6-1.1) mg/dl Glucose 100 (70-105) mg/dL Calcium 8.6 (8.6-10.4) mg/dl Total Bilirubin 0.4 (0.0-1.0) mg/dL AST 25 (0-37) U/l ALT 37 (0-40) U/l Alkaline Phosphatase 99 (39-117) U/L Total Protein 6.5 (5.9-8.4) gm/dL Albumin 2.5 L (3.2-5.2) gm/dL Assessment and Plan (1) Acute appendicitis with perforation, localized peritonitis, and abscess Status: Acute Assessment and plan: exploration of incision under anesthesia later today Aerobic and anaerobic cultures Current Visit: Yes - Time Spent With Patient Total time spent is greater than 50% in coordination of care (as documented) at patient's floor/unit and/or counseling patient:
[2018-12-05] MEDS: PIPERACILLIN SODIUM/TAZOBACTAM 4.5 GM in DEXTROSE 5% IN WATER 50 ML IV SCH (12:53)
--- NOTE | 2018-12-05 14:19 | Cat Scan Report ---
History: Right lower quadrant pain, status post recent appendectomy. TECHNIQUE: The abdomen was imaged following oral and intravenous contrast scanning from the thoracic inlet through the symphysis pubis. Sagittal and coronal reformats were created. The radiation exposure was limited using dose reduction technology. CHEST: Small layering right-sided pleural effusion is present. Associated with this is mild atelectasis in the posterior basal segment right lower lobe. The effusion and atelectasis are unchanged since one 0-19. There has been near but not complete resolution of the small left-sided pleural effusion and minor atelectasis in the posterior basal segment left lower lobe. There are thin linear bands of discoid atelectasis in right middle lobe. No new infiltrate has developed. The pulmonary arteries are normal without evidence of pulmonary embolus. The heart is normal in size and contour. No pneumothorax is present. Abdomen and pelvis: The liver is normal in size. The gallbladder is less distended today than it was previously. There are no stones in the walter not thickened or inflamed. The spleen and pancreas are normal. There is a simple cyst in the right kidney. The kidneys otherwise normal and there is no stone or hydronephrosis. Large amount of liquefied stool is present in the distal small bowel and colon. Oral contrast has passed through stomach and jejunum to the proximal ileum without obstruction. The small bowel is mildly dilated and there are several air-fluid levels. Large amount liquefied stool is present throughout the colon. There is residual inflammation around the cecum and ascending colon. There is a surgical drain anterior and lateral to the cecum and ascending colon. No abscess has formed within the abdomen. There is small amount residual free fluid in the peritoneal space in the right paracolic gutter. This has diminished in volume. There is a second drain located in the anterior midline of the pelvis extending to the left mid pelvis. Patient is developing a small irregularly shaped collection of fluid in the deep subcutaneous fat just above the entry site for the more lateral of the two drainage catheters. The fluid collection measures approximately 1 x 3 x 4 cm in size. There is still subcutaneous air in the fascial planes between the abdominal wall musculature and subcutaneous tissues on the recent surgery. Small amount of free peritoneal fluid is seen in the left mid pelvis. The volume of intraperitoneal and subcutaneous air has diminished. IMPRESSION: Small hematoma or abscess developing in the deep subcutaneous tissues anteriorly in the right upper pelvis near the insertion point of the right side drainage catheter. Stable postsurgical inflammatory changes around the cecum following appendectomy. No intraperitoneal abscess is identified. Postoperative ileus which has become worse since 12/01/18 Resolving left-sided pleural effusion and left lower lobe atelectasis with stable small right pleural effusion and mild right lower lobe atelectasis Interpreted and Authenticated by: Arian Hicks 12/05/18
[2018-12-05] MEDS: VANCOMYCIN 1,000 MG in 0.9 % SODIUM CHLORIDE 250 ML IV SCH (16:12)
[2018-12-05] MEDS ORDERED: KETAMINE 100 MG/ML ML IV ONE (16:45)
[2018-12-05] MEDS ORDERED: LIDOCAINE HCL/PF 100 MG/5 ML SYRINGE IV ONE (16:45)
[2018-12-05] MEDS ORDERED: KETOROLAC 30 MG/ML VIAL IV ONE (16:45)
[2018-12-05] MEDS ORDERED: PROPOFOL 200 MG/20 ML VIAL IV ONE (16:45)
[2018-12-05] MEDS ORDERED: GLYCOPYRROLATE 0.2 MG/ML VIAL IV ONE (16:45)
[2018-12-05] MEDS ORDERED: ONDANSETRON 4 MG/2 ML VIAL IV ONE (16:45)
[2018-12-05] MEDS ORDERED: fentaNYL 100 MCG/2 ML VIAL IV ONE ×2 (16:45→18:08)
[2018-12-05] MEDS ORDERED: PHENYLEPHRINE 10 MG/ML VIAL IV ONE (16:45)
[2018-12-05] MEDS ORDERED: SUCCINYLCHOLINE 20 MG/ML ML IV ONE (16:45)
[2018-12-05] MEDS ORDERED: DEXAMETHASONE 10 MG/ML VIAL IV ONE (16:45)
[2018-12-05] MEDS ORDERED: ROCURONIUM 10 MG/ML ML IV ONE (16:45)
[2018-12-05] MEDS ORDERED: MIDAZOLAM 5 MG/5 ML VIAL IV ONE (16:45)
[2018-12-05] MEDS ORDERED: MEPERIDINE 50 MG/ML INJECTION IM PRN (17:15)
[2018-12-05] MEDS ORDERED: PROMETHAZINE 25 MG/ML VIAL IM PRN (17:15)
[2018-12-05] MEDS ORDERED: FLUMAZENIL 0.1 MG/ML ML IV PRN ×2 (17:15→18:50)
[2018-12-05] MEDS ORDERED: MEPERIDINE 25 MG/ML SYRINGE IV PRN (17:15)
[2018-12-05] MEDS ORDERED: LACTATED RINGERS 250 ML IV PRN (17:15)
[2018-12-05] MEDS ORDERED: METHOCARBAMOL 1,000 MG/10 ML VIAL IV PRN (17:15)
[2018-12-05] MEDS ORDERED: HYDROmorphone 2 MG/ML VIAL IV PRN (17:15)
[2018-12-05] MEDS ORDERED: ACETAMINOPHEN 1,000 MG/100 ML BOTTLE IV ONE (17:15)
[2018-12-05] MEDS ORDERED: PROMETHAZINE 25 MG/ML VIAL IV PRN (17:15)
[2018-12-05] MEDS ORDERED: IPRATROPIUM/ALBUTEROL 3 ML AMPUL.NEB NEB PRN (17:15)
[2018-12-05] MEDS ORDERED: LACTATED RINGERS 1,000 ML IV SCH (17:15)
[2018-12-05] MEDS ORDERED: NALOXONE HCL 0.4 MG/ML VIAL IV PRN ×2 (17:15→18:50)
[2018-12-05] MEDS ORDERED: BENZOCAINE/MENTHOL 1 LOZENGE PO PRN (17:15)
--- NOTE | 2018-12-05 17:26 | Brief Operative Note ---
Date of procedure: 12/05/18 Pre-op diagnosis: post operative wound infection with fasciitis Post-op diagnosis: same Procedure: open wound exploration with debridement and irrigation Grafts/Implants: No Anesthesia: GLMA Findings: turbid brownish thin fluid in subcutaneous and subfascial planes on right Complications: none Surgeon: Carine Eid Specimens Removed/Pathology: other (wound cultures) Condition: stable Disposition: PACU
[2018-12-05] MEDS: fentaNYL 100 MCG/2 ML VIAL IV PRN ×2 (18:06→18:17)
[2018-12-05] MEDS ORDERED: BACITRACIN 50,000 UNIT VIAL IR ONE (18:14)
[2018-12-05] MEDS ORDERED: LORazepam 1 MG TABLET PO PRN (18:50)
[2018-12-05] MEDS ORDERED: HYDROmorphone PCA 30 MG/30 ML PCA.VIAL IV PRN (18:50)
[2018-12-05] MEDS ORDERED: diphenhydrAMINE 50 MG/ML VIAL IV PRN (18:50)
[2018-12-05] MEDS ORDERED: VANCOMYCIN PER PHARMACY IV SCH (18:50)
[2018-12-05] MEDS: VANCOMYCIN 1,500 MG in 0.9 % SODIUM CHLORIDE 500 ML IV SCH (21:27)
[2018-12-06] MEDS: METOCLOPRAMIDE 10 MG TABLET PO SCH ×5 (00:26→18:20)
[2018-12-06] MEDS: PIPERACILLIN SODIUM/TAZOBACTAM 4.5 GM in DEXTROSE 5% IN WATER 50 ML IV SCH ×5 (00:26→18:20)
[2018-12-06] MEDS: ACYCLOVIR 400 MG TABLET PO SCH ×6 (04:10→20:58)
[2018-12-06] MEDS: 0.9 % SODIUM CHLORIDE 250 ML IV SCH ×3 (04:11→19:51)
[2018-12-06] MEDS: 0.9 % SODIUM CHLORIDE 10 ML SYRINGE IV SCH ×3 (05:48→22:00)
--- NOTE | 2018-12-06 06:58 | Internal Med Progress Note ---
Medical - PN: Subj Patient information: Note initiated : 12/06/18 at 6:55 am Service Date, if different from initiated Date: [] Patient: Naomi Corrales a 27 y/o F admitted on 11/29/18 for right lower abd pain. Chief Complaint: [] Interval history: Ms. Corrales is a 27 year old F Who presented on the with severe abdominal pain which initially started 5 days earlier but woke up on this date severe pain. Presented to ED CT scan showed a perforated appendix. She was taken back to the OR for initial laparos copic appendectomy and subsequently converted to open. During the surgery she was found to have perforated cecum as well with purulent appendicitis and localized peritonitis. Since then she started developed fevers and tachycardia today. She has some shortness of breath that associated with abdominal pain, and breathing shallow. Still has a lot of abdominal pain and has not maxed out the Dilaudid LIVESTOCK AUCTIONEER pump. Is felt that she might not be keeping on her pain. She is 5 months and breast-feeding. She is been on Zosyn as well as Flagyl. The Dilaudid LIVESTOCK AUCTIONEER pump and Tylenol Toradol as needed. Her blood pressure is good and her oxygenation is good as well, respiratory rate is around 20. She reports fevers and chills. No chest pain no headache no nausea vomiting. [place] anxious earlier but is feeling better at this time. 1/3 Feeling better today. Pain is improved with pain regimen. She feels her bowels are waking up but she has not passed any flatus, She is burping. No cough chest pain shortness of breath. Does feel feverish at the moment. 1/ Feels feverish at times, some nausea. But otherwise no other complaints. Overall feeling improved. 12/04 Patient doing better. MAXIMUM TEMPERATURE 103 yesterday. Started on vancomycin per infectious disease specialist. White count 7.6. No abdominal pain nausea. Passing flatus. Postop management ongoing per surgery. 12/05-patient doing well. No overnight events except for low-grade fevers. No concerns per staff. Infectious disease specialist recommend CT abdomen chest pelvis in light of intermittent fever. ID also increased Zosyn to 4.5 g. Surgery on board. 12/06 No fevers. Feeling better. No nausea vomiting. No flatus. Taken OR yesterday with I&D of abscess. Heart rate is much better and again no fevers. Review of Systems: denies headache/chills/vomiting/chest pain/cough/dyspnea/diarrhea. Otherwise see above. - Constitutional Vitals: Vital Signs Temp Pulse Resp BP Pulse Ox 97.9 F 78 14 119/80 95 12/06/18 04:00 12/05/18 18:23 12/06/18 04:00 12/06/18 04:00 12/06/18 04:00 Period Temp Pulse Resp BP Sys/Best Pulse Ox Last 24 Hr 97.6 F-98.9 F 72-102 14-24 100-129/17-83 90-99 Intake and Output 12/05/18 12/06/18 12/06/18 21:59 05:59 13:59 Intake Total 138 / 2515 905 / 2515 Output Total 1000 / 5130 2230 / 5130 Balance -862 / -2615 -1325 / -2615 Weight 75.75 kg Intake & Output: Intake & Output 12/05/18 12/06/18 12/06/18 21:59 05:59 13:59 Intake Total 138 / 2515 905 / 2515 Output Total 1000 / 5130 2230 / 5130 Balance -862 / -2615 -1325 / -2615 Weight 75.75 kg Intake: IV 138 / 1315 665 / 1315 Zosyn 4.5 gm In Dextrose 5% in 38 / 100 50 / 100 Water 50 ml @ 100 mls/hr IV Q6H [facility] Rx#:[id number] Vancomycin 1,500 mg In Sodium 500 / 500 Chloride 0.9% 500 ml @ 333.3 mls/hr IV Q12H [facility] Rx#: [id number] Oral 240 / 1200 Output: Drainage 30 / 30 A 20 / 20 B 10 / 10 Void Amount 1000 / 5100 2200 / 5100 Other: Percent of Meal Consumed npo Urine Appearance Sediment Clear Urine Color Bright Yellow Pale # Voids 1 Exam: General: Alert, Awake, No acute Distress Eyes/N/T: EOMI, Head/Neck: neck supple, CV: RRR, No murmurs Pulm: Clear b/l, no wheezing/rhonchi/rales Abd: soft, dressings intact, decreased BS Ext: no clubbing/cyanosis, trace-1+ b/l LE edema Neuro: Alert, no focal deficits, moves all extremities, Skin: warm/dry Medical - PN: Obj Da - Labs CBC & Chem 7: 12/05/18 04:59 12/05/18 04:59 Labs: Abnormal Lab Results 12/05/18 12/05/18 12/04/18 04:59 04:59 03:27 WBC 11.2 H RBC 3.62 L Hgb 10.6 L Hct 30.9 L Plt Count 469 H MPV 6.9 L Lymph % (Auto) Lymph # (Auto) WBC Morphology Abnorm A Hypersegmented Polys Few A Toxic Granulation 1+ A BUN 3 L 4 L Creatinine 0.5 L Uric Acid 1.6 L 1.4 L Calcium 8.5 L Phosphorus 4.6 H NT-Pro-B Natriuret Pep Albumin 2.5 L 2.5 L Globulin 4.0 H Albumin/Globulin Ratio 0.6 L 0.7 L 12/04/18 12/03/18 03:27 10:51 WBC RBC 3.52 L Hgb 10.4 L Hct 30.5 L Plt Count MPV 7.3 L Lymph % (Auto) 15.2 L Lymph # (Auto) 1.2 L WBC Morphology Hypersegmented Polys Toxic Granulation BUN Creatinine Uric Acid Calcium Phosphorus NT-Pro-B Natriuret Pep 395.7 H Albumin Globulin Albumin/Globulin Ratio Meds: Medications Acyclovir (Zovirax) 200 mg PO 5XD [facility] Last Admin: 12/05/18 21:28 Dose: 200 mg Documented by: Diphenhydramine HCl (Benadryl) 25 mg IV Q6HP PRN PRN Reason: Itching Docusate Sodium (Colace) 100 mg PO BID [facility] Last Admin: 12/05/18 21:28 Dose: 100 mg Documented by: Enoxaparin Sodium (Lovenox) 40 mg SQ DAILY [facility] Famotidine (Pepcid) 20 mg IV Q12 [facility] Last Admin: 12/05/18 21:28 Dose: 20 mg Documented by: Flumazenil (Romazicon) 0.2 mg IV Q1MIN PRN PRN Reason: BENZODIAZEPINE REVERSAL Hydromorphone HCl (Dilaudid Golf [employer]) 30 mg IV UD PRN; Protocol PRN Reason: Pain Potassium Chloride/Dextrose/Sod Cl (Dextrose 5%-1/2ns W/20meq Kcl) 1,000 mls @ 75 mls/hr IV .[id number] [facility] Last Admin: 12/05/18 18:58 Dose: 75 mls/hr Documented by: Sodium Chloride (Sodium Chloride 0.9%) 250 mls @ 20 mls/hr IV .[id number] [facility] Last Admin: 12/05/18 19:20 Dose: Not Given Documented by: Acetaminophen (Ofirmev) 650 mg in 65 mls @ 130 mls/hr IV Q6HP PRN PRN Reason: PAIN/FEVER > 101 Piperacillin Sod/Tazobactam (Sod 4.5 gm/ Dextrose) 50 mls @ 100 mls/hr IV Q6H [facility] Last Admin: 12/06/18 05:48 Dose: 100 mls/hr Documented by: Vancomycin HCl 1,500 mg/ (Sodium Chloride) 500 mls @ 333.3 mls/hr IV Q12H [facility] Last Infusion: 12/06/18 00:53 Dose: Infused Documented by: Iron Carb/Multivit/[place]/Folic Acid (Multivitamin W/Minerals) 1 tab PO DAILY [facility] Lorazepam (Ativan) 0.5 mg PO Q12HP PRN PRN Reason: ANXIETY/SEDATION Magnesium Hydroxide (Milk Of Magnesia) 30 ml PO DAILY [facility] Metoclopramide HCl (Reglan) 5 mg PO Q6H [facility] Last Admin: 12/06/18 05:48 Dose: 5 mg Documented by: Naloxone HCl (Narcan) 0.1 mg IV Q2MIN PRN PRN Reason: Opiate Reversal Ondansetron HCl (Zofran Odt) 4 mg SL Q4-6HP PRN PRN Reason: Nausea And Vomiting Last Admin: 12/05/18 19:19 Dose: 4 mg Documented by: Sodium Chloride (Saline Flush) 10 ml IV Q8 [facility] Last Admin: 12/06/18 05:48 Dose: 10 ml Documented by: Vancomycin HCl (Vancomycin Per Pharmacy) 1 order IV UD [facility] Medical - PN: A/P - Time Spent With Patient Total time spent is greater than 50% in coordination of care (as documented) at patient's floor/unit and/or counseling patient: - Narrative A/P Narrative: A: *Perforated appendix: s/p surgical intervention (11/29) *Acute peritonitis: 2/2 above *Abd SQ abscess causing persistent Fever/tachy (IMProved): s/p I&D (12/05) -CTA chest no PE, CT a/p no unexpected findings -c. diff neg, lactate wnl as well as repeat -Also with Atelectasis -PCT improving, * 5 months: *Post-op Anemia: P: -Abx per ID; pending intraop cx's, -Abd/diet per surgery -IS -encourage patient to keep on top of pain with LIVESTOCK AUCTIONEER pump, prn tylenol/toradol -Ambulation - -ppx: lovenox/pepcid Medical - PN: Qual - VTE Deep Vein Thrombosis/Pulmonary Embolism Present on Admission: No
[2018-12-06] MEDS: DEXTROSE 5%-1/2NS W/20MEQ KCL 1,000 ML IV SCH ×2 (08:07→22:49)
[2018-12-06] MEDS: DOCUSATE SODIUM 100 MG CAPSULE PO SCH ×2 (08:44→20:58)
[2018-12-06] MEDS: FAMOTIDINE/PF 20 MG/2 ML VIAL IV SCH ×2 (08:44→20:58)
[2018-12-06] MEDS: MAGNESIUM HYDROXIDE 30 ML ORAL.SUSP PO SCH (08:44)
[2018-12-06] MEDS: ENOXAPARIN 40 MG/0.4 ML SYRINGE SQ SCH (08:45)
[2018-12-06] MEDS: MULTIVIT,THER IRON,CA,FA & MIN 1 TABLET PO SCH (08:45)
--- NOTE | 2018-12-06 08:53 | Infectious Disease Prog Note ---
Subjective Patient information: Note initiated : 12/06/18 at 8:49 am Service Date, if different from initiated Date: [] Patient: Naomi Corrales 27 y/o F admitted on 11/29/18 for right lower abd pain. Chief Complaint: [] Interval history: Patient is doing better as compared to yesterday. She did not had any fever, her heart rate also came down. Denies any vomiting, diarrhea, shortness of breath, cough. Endorses nausea, belly pain [mainly at the right side where surgical drainage of abscess was performed yesterday] and constipation. She is able to pass flatus without any problems. She has 2 abdominal drains with minimal output. Patient was sitting and is able to move around without difficulty. Objective Objective Narrative: Alert, oriented x3 Chest clear to auscultation except for an area of decreased absent breath sounds in the right posterior lung around the lung base heart sounds normal , No murmurs auscultated Belly is tender to touch in the right upper and lower quadrants, surgical incisions covered by dressing, 2 [place] drains with minimal amount of s erosanguineous fluid in the bulb No edema - Vital Signs Vital signs: Vital Signs Temp Pulse Pulse Resp BP BP BP 12/06/18 08:00 16 12/06/18 07:00 16 116/80 12/06/18 04:00 36.6 C 14 119/80 12/06/18 00:00 36.8 C 16 115/17 12/05/18 21:00 16 118/72 12/05/18 20:30 14 100/69 12/05/18 20:00 16 12/05/18 19:45 16 111/71 12/05/18 19:30 16 115/75 12/05/18 19:15 15 109/72 12/05/18 19:00 125/82 12/05/18 18:38 37.2 C 16 125/82 12/05/18 18:23 36.7 C 78 16 121/74 12/05/18 18:09 36.8 C 91 H 16 123/74 12/05/18 17:54 102 H 14 117/64 12/05/18 17:44 102 H 14 129/77 12/05/18 17:39 36.4 C 72 16 105/55 12/05/18 11:10 37.1 C 24 H 12/05/18 09:33 16 BP Pulse Ox 12/06/18 08:00 96 12/06/18 07:00 93 12/06/18 04:00 95 12/06/18 00:00 95 12/05/18 21:00 95 12/05/18 20:30 90 12/05/18 20:00 12/05/18 19:45 92 12/05/18 19:30 95 12/05/18 19:15 92 12/05/18 19:00 94 12/05/18 18:38 93 12/05/18 18:23 98 12/05/18 18:09 98 12/05/18 17:54 98 12/05/18 17:44 98 12/05/18 17:39 99 12/05/18 11:10 121/83 96 12/05/18 09:33 Intake and Output 12/05/18 12/06/18 12/06/18 21:59 05:59 13:59 Intake Total 138 / 2515 905 / 2515 986 / 986 Output Total 1000 / 5130 2230 / 5130 1100 / 1100 Balance -862 / -2615 -1325 / -2615 -114 / -114 Intake: IV 138 / 1315 665 / 1315 986 / 986 Dextrose 5%-1/2Ns W/20Meq KCl 1 986 / 986 ,000 ml @ 75 mls/hr IV .[id number] [facility] Rx#:[id number] Zosyn 4.5 gm In Dextrose 5% in 38 / 100 50 / 100 Water 50 ml @ 100 mls/hr IV Q6H [facility] Rx#:[id number] Vancomycin 1,500 mg In Sodium 500 / 500 Chloride 0.9% 500 ml @ 333.3 mls/hr IV Q12H [facility] Rx#: [id number] Oral 240 / 1200 Output: Drainage 30 / 30 A 20 / 20 B 10 / 10 Void Amount 1000 / 5100 2200 / 5100 1100 / 1100 Other: Percent of Meal Consumed npo Urine Appearance Sediment Clear Clear Urine Color Bright Yellow Pale Bright Yellow # Voids 1 Weight 75.75 kg Intake & Output: Intake & Output 12/05/18 12/06/18 12/06/18 21:59 05:59 13:59 Intake Total 138 / 2515 905 / 2515 986 / 986 Output Total 1000 / 5130 2230 / 5130 1100 / 1100 Balance -862 / -2615 -1325 / -2615 -114 / -114 Weight 75.75 kg Intake: IV 138 / 1315 665 / 1315 986 / 986 Dextrose 5%-1/2Ns W/20Meq KCl 1 986 / 986 ,000 ml @ 75 mls/hr IV .[id number] [facility] Rx#:[id number] Zosyn 4.5 gm In Dextrose 5% in 38 / 100 50 / 100 Water 50 ml @ 100 mls/hr IV Q6H [facility] Rx#:[id number] Vancomycin 1,500 mg In Sodium 500 / 500 Chloride 0.9% 500 ml @ 333.3 mls/hr IV Q12H [facility] Rx#: [id number] Oral 240 / 1200 Output: Drainage 30 / 30 A 20 / 20 B 10 / 10 Void Amount 1000 / 5100 2200 / 5100 1100 / 1100 Other: Percent of Meal Consumed npo Urine Appearance Sediment Clear Clear Urine Color Bright Yellow Pale Bright Yellow # Voids 1 - Lab 12/06/18 08:50 12/06/18 08:50 Most recent lab results Calcium 8.6 mg/dl (8.6-10.4) 12/05/18 04:59 Phosphorus 4.5 mg/dL (2.7-4.5) 12/05/18 04:59 Magnesium 2.0 mg/dL (1.6-2.5) 12/05/18 04:59 Microbiology 12/05/18 11:14 Abdomen - Middle Gram Stain - Final 12/05/18 11:14 Abdomen - Middle Wound Culture - Preliminary 12/01/18 16:38 Blood Blood Culture - Preliminary 12/01/18 16:34 Blood Blood Culture - Preliminary 12/05/18 11:58 Abdomen - Middle Gram Stain - Final 12/05/18 11:20 Abdominal Fluid Gram Stain - Final 12/05/18 11:20 Abdominal Fluid Body Fluid Culture - Final 12/03/18 11:15 Blood Blood Culture - Preliminary 12/03/18 10:51 Blood Blood Culture - Preliminary 11/29/18 23:42 Appendix Gram Stain - Final 11/29/18 23:42 Appendix Gram Stain - Final 11/29/18 23:42 Appendix Anaerobic Culture - Final 11/29/18 23:42 Abdominal Fluid Gram Stain - Final 11/29/18 23:42 Abdominal Fluid Body Fluid Culture - Final 11/29/18 19:30 Urine - Clean Void Mid-Stream Urine Culture - Final 11/30/18 00:04 Nose MRSA (PCR) - Final Medications Active Medications: Acyclovir (Zovirax) 200 mg PO 5XD [facility] Last Admin: 12/06/18 07:30 Dose: 200 mg Documented by: MARIA INES Admin: 12/05/18 21:28 Dose: 200 mg Documented by: JACQUIE Diphenhydramine HCl (Benadryl) 25 mg IV Q6HP PRN PRN Reason: Itching Docusate Sodium (Colace) 100 mg PO BID [facility] Last Admin: 12/06/18 08:44 Dose: 100 mg Documented by: MARIA INES Admin: 12/05/18 21:28 Dose: 100 mg Documented by: JACQUIE Enoxaparin Sodium (Lovenox) 40 mg SQ DAILY [facility] Last Admin: 12/06/18 08:45 Dose: 40 mg Documented by: MARIA INES Famotidine (Pepcid) 20 mg IV Q12 [facility] Last Admin: 12/06/18 08:44 Dose: 20 mg Documented by: MARIA INES Admin: 12/05/18 21:28 Dose: 20 mg Documented by: JACQUIE Flumazenil (Romazicon) 0.2 mg IV Q1MIN PRN PRN Reason: BENZODIAZEPINE REVERSAL Hydromorphone HCl (Dilaudid Director [employer] Content [employer] Programming) 30 mg IV UD PRN; Protocol PRN Reason: Pain Potassium Chloride/Dextrose/Sod Cl (Dextrose 5%-1/2ns W/20meq Kcl) 1,000 mls @ 75 mls/hr IV .[id number] [facility] Last Admin: 12/06/18 08:07 Dose: 75 mls/hr Documented by: MARIA INES Infusion: 12/06/18 08:07 Dose: 75 mls/hr Documented by: MARIA INES Admin: 12/05/18 18:58 Dose: 75 mls/hr Documented by: ABEL Sodium Chloride (Sodium Chloride 0.9%) 250 mls @ 20 mls/hr IV .[id number] [facility] Last Admin: 12/05/18 19:20 Dose: Not Given Documented by: ABEL Non-Admin Reason: Not needed Acetaminophen (Ofirmev) 650 mg in 65 mls @ 130 mls/hr IV Q6HP PRN PRN Reason: PAIN/FEVER > 101 Piperacillin Sod/Tazobactam (Sod 4.5 gm/ Dextrose) 50 mls @ 100 mls/hr IV Q6H [facility] Last Admin: 12/06/18 05:48 Dose: 100 mls/hr Documented by: Infusion: 12/06/18 04:09 Dose: 0 mls/hr Documented by: Admin: 12/06/18 00:26 Dose: 100 mls/hr Documented by: JACQUIE Vancomycin HCl 1,500 mg/ (Sodium Chloride) 500 mls @ 333.3 mls/hr IV Q12H [facility] Last Infusion: 12/06/18 00:53 Dose: 0 mls/hr Documented by: Admin: 12/05/18 21:27 Dose: 333.3 mls/hr Documented by: JACQUIE Iron Carb/Multivit/[place]/Folic Acid (Multivitamin W/Minerals) 1 tab PO DAILY [facility] Last Admin: 12/06/18 08:45 Dose: 1 tab Documented by: MARIA INES Lorazepam (Ativan) 0.5 mg PO Q12HP PRN PRN Reason: ANXIETY/SEDATION Magnesium Hydroxide (Milk Of Magnesia) 30 ml PO DAILY [facility] Last Admin: 12/06/18 08:44 Dose: 30 ml Documented by: MARIA INES Metoclopramide HCl (Reglan) 5 mg PO Q6H [facility] Last Admin: 12/06/18 05:48 Dose: 5 mg Documented by: Admin: 12/06/18 00:26 Dose: 5 mg Documented by: JACQUIE Naloxone HCl (Narcan) 0.1 mg IV Q2MIN PRN PRN Reason: Opiate Reversal Ondansetron HCl (Zofran Odt) 4 mg SL Q4-6HP PRN PRN Reason: Nausea And Vomiting Last Admin: 12/05/18 19:19 Dose: 4 mg Documented by: LATFabricio Sodium Chloride (Saline Flush) 10 ml IV Q8 [facility] Last Admin: 12/06/18 05:48 Dose: 10 ml Documented by: Admin: 12/05/18 21:28 Dose: 10 ml Documented by: JACQUIE Vancomycin HCl (Vancomycin Per Pharmacy) 1 order IV UD [facility] Assessment and Plan - Narrative A/P Narrative: Assessment: 1. Acute perforated appendicitis with peritonitis with subsequent development of subcutaneous abscess [status post I&D on 12-05-18]: On day 7 of IV Zosyn, and day 3 of IV vancomycin with clinical improvement Negative C. difficile - blood Cx and wound cultures NGTD 2. No concerns for sepsis at this point: Q-sofa score less than 2, sofa score around 0 Recommendations: Continue IV Zosyn 4.5 g every 6 hours and IV vancomycin per pharmacy assisted dosing . As patient is young, and rapid excretor, would recommend changing to q8 dosing for IV Vanc (1 gm q8 hrs) as pt's repeat Vanc trough was also low. Check a trough before the 4th dose. -Based on the clinical progress in 1-2 days, will plan to switch to oral antibiotics will follow Reginaldo Calvert MD Infectious disease
[2018-12-06] MEDS: ONDANSETRON 4 MG ODT TABLET SL PRN (10:25)
[2018-12-06 10:27] LABS: Basophils # (Auto) 0 K/mcL (0.0-0.3); Basophils % (Auto) 0.2 % (0.0-2.0); Eosinophils # (Auto) 0 K/mcL (0.0-0.7); Eosinophils % (Auto) 0.1 % (0.0-7.0); Granulocytes % (Auto) 85.2 % (38.0-78.0); Lymphocytes # (Auto) 1.1 K/mcL (1.5-4.8); Lymphocytes % (Auto) 10.1 % (15.5-49.0); Mean Cell Volume 86.2 fL (80.0-100.0); Mean Corpuscular HGB Conc 33.2 g/dL (31.0-36.0); Monocytes # (Auto) 0.5 K/mcL (0.1-0.9); Monocytes % (Auto) 4.4 % (1.0-12.0); Platelet Count 648 K/mcL (140-440); RBC 3.82 M/mcL (4.00-5.20); Red Cell Distribution Width 12.7 % (11.5-14.5)
[2018-12-06] MEDS ORDERED: VANCOMYCIN 1,500 MG in 0.9 % SODIUM CHLORIDE 500 ML IV ONE (10:30)
[2018-12-06 10:44] LABS: ALT/SGPT 53 U/l (0-40); Albumin 3.1 gm/dL (3.2-5.2); Albumin/Globulin Ratio 0.7 (1.0-2.3); Alkaline Phosphatase 128 U/L (39-117); Bilirubin,Direct < 0.2 mg/dL (0.0-0.3); Blood Urea Nitrogen 5 mg/dl (6-20); Gamma Glutamyl Transpeptidase 142 U/L (5-36); Uric Acid 1.7 mg/dL (2.5-8.0)
[2018-12-06] MEDS: POLYETHYLENE GLYCOL 3350 17 GM PACKET PO SCH (11:12)
[2018-12-06] MEDS: ACETAMINOPHEN 650 MG/65 ML BOTTLE IV PRN ×2 (13:00→22:15)
[2018-12-06] MEDS: VANCOMYCIN 1,500 MG in 0.9 % SODIUM CHLORIDE 500 ML IV SCH (13:13)
--- NOTE | 2018-12-06 14:47 | General Surgery Progress Note ---
Subjective Patient reports: feels better, pain is less, flatus, bowel movement, nausea, afebrile Narrative: Note initiated : 12/06/18 at 2:47 pm Service Date, if different from initiated Date: [] Patient: Naomi Corrales 27 y/o F admitted on 11/29/18 for right lower abd pain. Chief Complaint: [Patient states that she feels better overall. Her pain is better controlled. She still has a moderate amount of turbid, slightly brownish drainage but some of this may be from the aqua cell AG. Her white blood count is 11.2 and hemoglobin is 10.9. She has mild elevation of LFTs, but this is isolated and will need to be followed up tomorrow. Discussed with her the need for follow-up debridement in 2-3 days.] Objective Temp Pulse Resp BP Pulse Ox 98.3 F 78 20 136/80 97 12/06/18 12:01 12/05/18 18:23 12/06/18 12:01 12/06/18 12:01 12/06/18 12:01 - Additional Data Intake & Output - Last 24 hours: Intake & Output 12/04/18 12/05/18 12/06/18 12/07/18 05:59 05:59 05:59 05:59 Intake Total 3613 / 3613 3293 / 3293 2515 / 2515 1730 / 1730 Output Total 2540 / 2540 3870 / 3870 5130 / 5130 1100 / 1100 Balance 1073 / 1073 -577 / -577 -2615 / -2615 630 / 630 Weight 170 lb 3.2 oz 169 lb 12.8 oz 167 lb 167 lb - General physical appearance well developed, well nourished, moderate distress, moderate pain - Eyes PERRL, normal ocular movement - ENT normal pinna, normal nares, normal mucosa, no hearing loss, no congestion - Neck no masses, no bruits, trachea midline, no lymphadenopathy, no venous distension - Respiratory normal expansion, normal respiratory effort, clear to auscultation - Cardiovascular Cardiovascular exam: Present: normal rate and rhythm, RRR, +S1, +S2. Absent: tachycardia - Abdomen tender (mild tenderness over operative site. Right lower quadrant; active bowel sounds) - Integumentary no rash, no growths, no abnormal pigmentation - Neurologic normal coordination, normal sensation - Musculoskeletal normal gait, normal posture - Psychiatric oriented to time, oriented to person, oriented to place, speech is normal, memory intact - Labs 12/11/18 03:40 12/11/18 03:40 Diabetes panel 12/06/18 Range/Units 08:50 Sodium 138 (133-145) mmol/L Potassium 4.5 (3.3-5.1) mmol/L Chloride 99 (96-108) mmol/L Carbon Dioxide 24 (22-30) mmol/L BUN 5 L (6-20) mg/dl Creatinine 0.6 (0.6-1.1) mg/dl Glucose 111 H (70-105) mg/dL Calcium 8.9 (8.6-10.4) mg/dl AST 42 H (0-37) U/l ALT 53 H (0-40) U/l Alkaline Phosphatase 128 H (39-117) U/L Total Protein 7.3 (5.9-8.4) gm/dL Albumin 3.1 L (3.2-5.2) gm/dL Triglycerides 87 (<150) mg/dl Calcium panel 12/06/18 Range/Units 08:50 Calcium 8.9 (8.6-10.4) mg/dl Phosphorus 4.2 (2.7-4.5) mg/dL Albumin 3.1 L (3.2-5.2) gm/dL Pituitary panel 12/06/18 Range/Units 08:50 Sodium 138 (133-145) mmol/L Potassium 4.5 (3.3-5.1) mmol/L Chloride 99 (96-108) mmol/L Carbon Dioxide 24 (22-30) mmol/L BUN 5 L (6-20) mg/dl Creatinine 0.6 (0.6-1.1) mg/dl Glucose 111 H (70-105) mg/dL Calcium 8.9 (8.6-10.4) mg/dl Adrenal panel 12/06/18 Range/Units 08:50 Sodium 138 (133-145) mmol/L Potassium 4.5 (3.3-5.1) mmol/L Chloride 99 (96-108) mmol/L Carbon Dioxide 24 (22-30) mmol/L BUN 5 L (6-20) mg/dl Creatinine 0.6 (0.6-1.1) mg/dl Glucose 111 H (70-105) mg/dL Calcium 8.9 (8.6-10.4) mg/dl Total Bilirubin 0.4 (0.0-1.0) mg/dL AST 42 H (0-37) U/l ALT 53 H (0-40) U/l Alkaline Phosphatase 128 H (39-117) U/L Total Protein 7.3 (5.9-8.4) gm/dL Albumin 3.1 L (3.2-5.2) gm/dL Assessment and Plan (1) Acute appendicitis with perforation, localized peritonitis, and abscess Status: Acute Assessment and plan: Patient is clinically improved. We'll continue on antibiotic therapy and make plans for further wound debridement in 2-3 days - Time Spent With Patient Total time spent is greater than 50% in coordination of care (as documented) at patient's floor/unit and/or counseling patient:
[2018-12-06] MEDS: VANCOMYCIN 1,000 MG in 0.9 % SODIUM CHLORIDE 250 ML IV SCH (20:58)
[2018-12-07] MEDS: METOCLOPRAMIDE 10 MG TABLET PO SCH ×4 (00:17→17:37)
[2018-12-07] MEDS: PIPERACILLIN SODIUM/TAZOBACTAM 4.5 GM in DEXTROSE 5% IN WATER 50 ML IV SCH ×3 (00:17→08:59)
[2018-12-07] MEDS: VANCOMYCIN 1,000 MG in 0.9 % SODIUM CHLORIDE 250 ML IV SCH (04:55)
[2018-12-07] MEDS: 0.9 % SODIUM CHLORIDE 10 ML SYRINGE IV SCH ×3 (06:25→20:43)
--- NOTE | 2018-12-07 06:48 | Internal Med Progress Note ---
Medical - PN: Subj Patient information: Note initiated : 12/07/18 at 6:47 am Service Date, if different from initiated Date: [] Patient: Naomi Corrales a 27 y/o F admitted on 11/29/18 for right lower abd pain. Chief Complaint: [] Interval history: Ms. Corrales is a 27 year old F Who presented on the with severe abdominal pain which initially started 5 days earlier but woke up on this date severe pain. Presented to ED CT scan showed a perforated appendix. She was taken back to the OR for initial laparos copic appendectomy and subsequently converted to open. During the surgery she was found to have perforated cecum as well with purulent appendicitis and localized peritonitis. Since then she started developed fevers and tachycardia today. She has some shortness of breath that associated with abdominal pain, and breathing shallow. Still has a lot of abdominal pain and has not maxed out the Dilaudid GUN STOCKER pump. Is felt that she might not be keeping on her pain. She is 5 months and breast-feeding. She is been on Zosyn as well as Flagyl. The Dilaudid GUN STOCKER pump and Tylenol Toradol as needed. Her blood pressure is good and her oxygenation is good as well, respiratory rate is around 20. She reports fevers and chills. No chest pain no headache no nausea vomiting. [place] anxious earlier but is feeling better at this time. 1/3 Feeling better today. Pain is improved with pain regimen. She feels her bowels are waking up but she has not passed any flatus, She is burping. No cough chest pain shortness of breath. Does feel feverish at the moment. 1/ Feels feverish at times, some nausea. But otherwise no other complaints. Overall feeling improved. 12/04 Patient doing better. MAXIMUM TEMPERATURE 103 yesterday. Started on vancomycin per infectious disease specialist. White count 7.6. No abdominal pain nausea. Passing flatus. Postop management ongoing per surgery. 12/05-patient doing well. No overnight events except for low-grade fevers. No concerns per staff. Infectious disease specialist recommend CT abdomen chest pelvis in light of intermittent fever. ID also increased Zosyn to 4.5 g. Surgery on board. 12/06 No fevers. Feeling better. No nausea vomiting. No flatus. Taken OR yesterday with I&D of abscess. Heart rate is much better and again no fevers. 12/07 Feels like her bowels are starting to become active but does not notice any flatus yet. Has some increased abdominal pain overnight. Had some nausea but no vomiting. Review of Systems: denies headache/chills/vomiting/chest pain/cough/dyspnea/diarrhea. Otherwise see above. - Constitutional Vitals: Vital Signs Temp Pulse Resp BP Pulse Ox 98.9 F 78 18 115/74 94 12/07/18 00:00 12/05/18 18:23 12/07/18 00:00 12/06/18 19:36 12/07/18 00:00 Period Temp Pulse Resp BP Sys/Best Pulse Ox Last 24 Hr 98.3 F-99 F 16-20 115-136/74-80 93-98 Intake and Output 12/06/18 12/07/18 12/07/18 21:59 05:59 13:59 Intake Total 1480 / 4050 600 / 4050 240 / 240 Output Total 1900 / 4500 1500 / 4500 Balance -420 / -450 -900 / -450 240 / 240 Weight 75.75 kg Intake & Output: Intake & Output 12/06/18 12/07/18 12/07/18 21:59 05:59 13:59 Intake Total 1480 / 4050 600 / 4050 240 / 240 Output Total 1900 / 4500 1500 / 4500 Balance -420 / -450 -900 / -450 240 / 240 Weight 75.75 kg Intake: IV 1300 / 2775 50 / 2775 Dextrose 5%-1/2Ns W/20Meq KCl 1 1000 / 1986 ,000 ml @ 75 mls/hr IV .[id number] [facility] Rx#:[id number] Zosyn 4.5 gm In Dextrose 5% in 50 / 200 50 / 200 Water 50 ml @ 100 mls/hr IV Q6H [facility] Rx#:[id number] Vancomycin 1,000 mg In Sodium 250 / 250 Chloride 0.9% 250 ml @ 250 mls/ hr IV Q8H [facility] Rx#:[id number] Oral 180 / 1210 550 / 1210 240 / 240 Output: Void Amount 1900 / 4500 1500 / 4500 # of times incontinent of urine 0 / 0 Other: Urine Appearance Clear Urine Color Bright Yellow Urine Odor Normal # Voids 1 Exam: General: Alert, Awake, No acute Distress Eyes/N/T: EOMI, Head/Neck: neck supple, CV: RRR, No murmurs Pulm: Clear b/l, no wheezing/rhonchi/rales Abd: soft, dressings intact, decreased BS Ext: no clubbing/cyanosis, trace-1+ b/l LE edema Neuro: Alert, no focal deficits, moves all extremities, Skin: warm/dry Medical - PN: Obj Da - Labs CBC & Chem 7: 12/06/18 08:50 12/06/18 08:50 Labs: Abnormal Lab Results 12/06/18 12/06/18 12/05/18 08:50 08:50 04:59 WBC 11.2 H RBC 3.82 L Hgb 10.9 L Hct 33.0 L Plt Count 648 H MPV 7.3 L Gran % 85.2 H Lymph % (Auto) 10.1 L Gran # 9.5 H Lymph # (Auto) 1.1 L WBC Morphology Hypersegmented Polys Toxic Granulation BUN 5 L 3 L Glucose 111 H Uric Acid 1.7 L 1.6 L GGT 142 H AST 42 H ALT 53 H Alkaline Phosphatase 128 H Lactate Dehydrogenase 374 H Albumin 3.1 L 2.5 L Globulin 4.2 H 4.0 H Albumin/Globulin Ratio 0.7 L 0.6 L 12/05/18 04:59 WBC 11.2 H RBC 3.62 L Hgb 10.6 L Hct 30.9 L Plt Count 469 H MPV 6.9 L Gran % Lymph % (Auto) Gran # Lymph # (Auto) WBC Morphology Abnorm A Hypersegmented Polys Few A Toxic Granulation 1+ A BUN Glucose Uric Acid GGT AST ALT Alkaline Phosphatase Lactate Dehydrogenase Albumin Globulin Albumin/Globulin Ratio Meds: Medications Acyclovir (Zovirax) 200 mg PO 5XD [facility] Last Admin: 12/06/18 20:58 Dose: 200 mg Documented by: Diphenhydramine HCl (Benadryl) 25 mg IV Q6HP PRN PRN Reason: Itching Docusate Sodium (Colace) 100 mg PO BID [facility] Last Admin: 12/06/18 20:58 Dose: 100 mg Documented by: Enoxaparin Sodium (Lovenox) 40 mg SQ DAILY [facility] Last Admin: 12/06/18 08:45 Dose: 40 mg Documented by: Famotidine (Pepcid) 20 mg IV Q12 [facility] Last Admin: 12/06/18 20:58 Dose: 20 mg Documented by: Flumazenil (Romazicon) 0.2 mg IV Q1MIN PRN PRN Reason: BENZODIAZEPINE REVERSAL Hydromorphone HCl (Dilaudid Senior Behavioral Scientist) 30 mg IV UD PRN; Protocol PRN Reason: Pain Potassium Chloride/Dextrose/Sod Cl (Dextrose 5%-1/2ns W/20meq Kcl) 1,000 mls @ 75 mls/hr IV .[id number] [facility] Last Admin: 12/06/18 22:49 Dose: 75 mls/hr Documented by: Sodium Chloride (Sodium Chloride 0.9%) 250 mls @ 20 mls/hr IV .[id number] [facility] Last Admin: 12/06/18 19:51 Dose: Not Given Documented by: Acetaminophen (Ofirmev) 650 mg in 65 mls @ 130 mls/hr IV Q6HP PRN PRN Reason: PAIN/FEVER > 101 Last Admin: 12/06/18 22:15 Dose: 130 mls/hr Documented by: Piperacillin Sod/Tazobactam (Sod 4.5 gm/ Dextrose) 50 mls @ 100 mls/hr IV Q6H [facility] Last Admin: 12/07/18 06:24 Dose: 100 mls/hr Documented by: Vancomycin HCl 1,000 mg/ (Sodium Chloride) 250 mls @ 250 mls/hr IV Q8H [facility] Last Admin: 12/07/18 04:55 Dose: 250 mls/hr Documented by: Iron Carb/Multivit/Watch Train Inspector/Folic Acid (Multivitamin W/Minerals) 1 tab PO DAILY [facility] Last Admin: 12/06/18 08:45 Dose: 1 tab Documented by: Lorazepam (Ativan) 0.5 mg PO Q12HP PRN PRN Reason: ANXIETY/SEDATION Magnesium Hydroxide (Milk Of Magnesia) 30 ml PO DAILY [facility] Last Admin: 12/06/18 08:44 Dose: 30 ml Documented by: Metoclopramide HCl (Reglan) 5 mg PO Q6H [facility] Last Admin: 12/07/18 06:24 Dose: 5 mg Documented by: Naloxone HCl (Narcan) 0.1 mg IV Q2MIN PRN PRN Reason: Opiate Reversal Ondansetron HCl (Zofran Odt) 4 mg SL Q4-6HP PRN PRN Reason: Nausea And Vomiting Last Admin: 12/06/18 10:25 Dose: 4 mg Documented by: Polyethylene Glycol (Miralax) 17 gm PO DAILY [facility] Last Admin: 12/06/18 11:12 Dose: 17 gm Documented by: Sodium Chloride (Saline Flush) 10 ml IV Q8 [facility] Last Admin: 12/07/18 06:25 Dose: 10 ml Documented by: Vancomycin HCl (Vancomycin Per Pharmacy) 1 order IV UD [facility] Medical - PN: A/P - Time Spent With Patient Total time spent is greater than 50% in coordination of care (as documented) at patient's floor/unit and/or counseling patient: - Narrative A/P Narrative: A: *Perforated appendix: s/p surgical intervention (11/29) *Acute peritonitis: /2 above *Abd SQ abscess causing persistent Fever/tachy (IMProved): s/p I&D (12/05) -CTA chest no PE, CT a/p no unexpected findings -c. diff neg, lactate wnl as well as repeat -Also with Atelectasis -PCT improved * 5 months: *Post-op Anemia: P: -Abx per ID; pending intraop cx's, -Abd/diet per surgery -IS -encourage patient to keep on top of pain with GUN STOCKER pump, prn tylenol/toradol -Ambulation --ppx: lovenox/pepcid Medical - PN: Qual - VTE Deep Vein Thrombosis/Pulmonary Embolism Present on Admission: No
[2018-12-07] MEDS: ACETAMINOPHEN 650 MG/65 ML BOTTLE IV PRN ×3 (07:40→22:43)
[2018-12-07] MEDS: ACYCLOVIR 400 MG TABLET PO SCH ×5 (08:07→20:39)
[2018-12-07] MEDS: 0.9 % SODIUM CHLORIDE 250 ML IV SCH ×2 (08:08→20:52)
[2018-12-07] MEDS: ONDANSETRON 4 MG ODT TABLET SL PRN (08:58)
[2018-12-07] MEDS: DOCUSATE SODIUM 100 MG CAPSULE PO SCH ×2 (08:58→20:39)
[2018-12-07] MEDS: MULTIVIT,THER IRON,CA,FA & MIN 1 TABLET PO SCH (08:58)
[2018-12-07] MEDS: FAMOTIDINE/PF 20 MG/2 ML VIAL IV SCH ×2 (08:59→20:39)
[2018-12-07] MEDS: ENOXAPARIN 40 MG/0.4 ML SYRINGE SQ SCH (08:59)
[2018-12-07] MEDS: MAGNESIUM HYDROXIDE 30 ML ORAL.SUSP PO SCH (08:59)
[2018-12-07] MEDS: POLYETHYLENE GLYCOL 3350 17 GM PACKET PO SCH (08:59)
[2018-12-07 09:27] LABS: Basophils # (Auto) 0 K/mcL (0.0-0.3); Basophils % (Auto) 0.2 % (0.0-2.0); Eosinophils # (Auto) 0.1 K/mcL (0.0-0.7); Eosinophils % (Auto) 1.5 % (0.0-7.0); Granulocytes % (Auto) 78.2 % (38.0-78.0); Lymphocytes # (Auto) 1.3 K/mcL (1.5-4.8); Lymphocytes % (Auto) 13.1 % (15.5-49.0); Mean Cell Volume 86.5 fL (80.0-100.0); Mean Corpuscular HGB Conc 33.6 g/dL (31.0-36.0); Monocytes # (Auto) 0.7 K/mcL (0.1-0.9); Platelet Count 679 K/mcL (140-440); RBC 3.62 M/mcL (4.00-5.20); Red Cell Distribution Width 13.1 % (11.5-14.5)
[2018-12-07 10:10] LABS: ALT/SGPT 53 U/l (0-40); Albumin 2.6 gm/dL (3.2-5.2); Albumin/Globulin Ratio 0.7 (1.0-2.3); Alkaline Phosphatase 93 U/L (39-117); Bilirubin,Direct < 0.2 mg/dL (0.0-0.3); Blood Urea Nitrogen 4 mg/dl (6-20); Gamma Glutamyl Transpeptidase 28 U/L (5-36); Uric Acid 2.4 mg/dL (2.5-8.0)
[2018-12-07] MEDS: DEXTROSE 5%-1/2NS W/20MEQ KCL 1,000 ML IV SCH (11:42)
[2018-12-07] MEDS: PIPERACILLIN SODIUM/TAZOBACTAM 3.375 GM in DEXTROSE 5% IN WATER 50 ML IV SCH ×2 (13:13→17:33)
[2018-12-07] MEDS: NYSTATIN 500,000 UNITS/5 ML ORAL.SUSP SSW SCH ×2 (15:42→20:39)
[2018-12-07] MEDS ORDERED: HYDROmorphone 2 MG/ML VIAL ONE (16:01)
--- NOTE | 2018-12-07 16:13 | General Surgery Progress Note ---
Subjective Patient reports: feels better, still having pain, pain is less, tolerating liquids well, flatus, bowel movement Narrative: Note initiated : 12/07/18 at 4:12 pm Service Date, if different from initiated Date: [] Patient: Naomi Corrales 27 y/o F admitted on 11/29/18 for right lower abd pain. Chief Complaint: [patient states that she feels better. She has been afebrile.. The burning sensation in her incision is significantly improved.. She had bowel movements today and has passed copious flatus. She denies nausea/ vomiting.] Objective Temp Pulse Resp BP Pulse Ox 98.4 F 95 H 16 113/64 94 12/07/18 11:45 12/07/18 11:45 12/07/18 11:45 12/07/18 11:45 12/07/18 11:45 - Additional Data Intake & Output - Last 24 hours: Intake & Output 12/05/18 12/06/18 12/07/18 12/08/18 05:59 05:59 05:59 05:59 Intake Total 3293 / 3293 2515 / 2515 4125 / 4365 1367 / 1367 Output Total 3870 / 3870 5130 / 5130 4500 / 4500 3350 / 3350 Balance -577 / -577 -2615 / -2615 -375 / -135 -1982 / Weight 169 lb 12.8 oz 167 lb 167 lb - General physical appearance well developed, well nourished, no distress - Eyes PERRL, normal ocular movement - ENT normal pinna, normal nares, normal mucosa, no hearing loss, no congestion - Neck no masses, no bruits, trachea midline, no lymphadenopathy, no venous distension - Respiratory normal expansion, normal respiratory effort, clear to auscultation - Cardiovascular Cardiovascular exam: Present: normal rate and rhythm. Absent: JVD, tachycardia - Abdomen tender (moderate tenderness around incision; still with some purulent drainage. Base of incision is clean.) - Integumentary no rash, no growths, no abnormal pigmentation - Neurologic normal coordination, normal sensation - Musculoskeletal normal gait, normal posture - Psychiatric oriented to time, oriented to person, oriented to place, speech is normal, memory intact - Labs 12/07/18 08:27 12/07/18 08:27 Diabetes panel 12/07/18 Range/Units 08:27 Sodium 140 (133-145) mmol/L Potassium 4.4 (3.3-5.1) mmol/L Chloride 101 (96-108) mmol/L Carbon Dioxide 24 (22-30) mmol/L BUN 4 L (6-20) mg/dl Creatinine 0.9 (0.6-1.1) mg/dl Glucose 101 (70-105) mg/dL Calcium 8.9 (8.6-10.4) mg/dl AST 35 (0-37) U/l ALT 53 H (0-40) U/l Alkaline Phosphatase 93 (39-117) U/L Total Protein 6.6 (5.9-8.4) gm/dL Albumin 2.6 L (3.2-5.2) gm/dL Triglycerides 118 (<150) mg/dl Calcium panel 12/07/18 Range/Units 08:27 Calcium 8.9 (8.6-10.4) mg/dl Phosphorus 5.2 H (2.7-4.5) mg/dL Albumin 2.6 L (3.2-5.2) gm/dL Pituitary panel 12/07/18 Range/Units 08:27 Sodium 140 (133-145) mmol/L Potassium 4.4 (3.3-5.1) mmol/L Chloride 101 (96-108) mmol/L Carbon Dioxide 24 (22-30) mmol/L BUN 4 L (6-20) mg/dl Creatinine 0.9 (0.6-1.1) mg/dl Glucose 101 (70-105) mg/dL Calcium 8.9 (8.6-10.4) mg/dl Adrenal panel 12/07/18 Range/Units 08:27 Sodium 140 (133-145) mmol/L Potassium 4.4 (3.3-5.1) mmol/L Chloride 101 (96-108) mmol/L Carbon Dioxide 24 (22-30) mmol/L BUN 4 L (6-20) mg/dl Creatinine 0.9 (0.6-1.1) mg/dl Glucose 101 (70-105) mg/dL Calcium 8.9 (8.6-10.4) mg/dl Total Bilirubin 0.3 (0.0-1.0) mg/dL AST 35 (0-37) U/l ALT 53 H (0-40) U/l Alkaline Phosphatase 93 (39-117) U/L Total Protein 6.6 (5.9-8.4) gm/dL Albumin 2.6 L (3.2-5.2) gm/dL Assessment and Plan (1) Acute appendicitis with perforation, localized peritonitis, and abscess Status: Acute Assessment and plan: exploration of incision under anesthesia later today Aerobic and anaerobic cultures Current Visit: Yes (2) Post-operative infection Status: Acute Assessment and plan: Clinically improved with clean wound base. Current Visit: Yes - Time Spent With Patient Total time spent is greater than 50% in coordination of care (as documented) at patient's floor/unit and/or counseling patient:
[2018-12-07] MEDS ORDERED: HYDROmorphone 2 MG/ML VIAL IV ONE (16:15)
--- NOTE | 2018-12-07 16:48 | Infectious Disease Prog Note ---
Subjective Patient information: Note initiated : 12/07/18 at 4:44 pm Service Date, if different from initiated Date: [] Patient: Naomi Corrales 27 y/o F admitted on 11/29/18 for right lower abd pain. Chief Complaint: [] Interval history: In the a.m., patient was not feeling well compared to yesterday. She expressed feeling weak, nauseated, with no appetite, pain in her right lower abdomen. She denies any fever, chills, vomiting, diarrhea. Able to pass flatus. Is scheduled to go for exploration of her surgical incision under anesthesia. Objective Objective Narrative: Alert, awake, oriented x3 Some thrush on the posterior aspect of the right inner cheek Chest clear to auscultation except for right posterior lung base where there is decreased breath sounds Heart sounds normal, no murmurs Bowel sounds present, tender to touch in the right lower quadrant, guarding and rebound tenderness positive No pedal edema - Vital Signs Vital signs: Vital Signs Temp Pulse Resp BP BP Pulse Ox 12/07/18 11:45 36.9 C 95 H 16 113/64 94 12/07/18 09:00 37.1 C 18 107/62 96 12/07/18 07:52 18 12/07/18 00:00 37.2 C 18 94 12/06/18 20:00 95 12/06/18 19:36 37.2 C 20 115/74 98 12/06/18 18:26 18 Intake and Output 12/07/18 12/07/18 12/07/18 05:59 13:59 21:59 Intake Total 915 / 4365 1367 / 1367 0 / 1367 Output Total 1500 / 4500 2350 / 3350 1000 / 3350 Balance -585 / -135 -983 / -1982 -999 / Intake: IV 365 / 3155 1127 / 1127 0 / 1127 Dextrose 5%-1/2Ns W/20Meq KCl 1 966 / 966 ,000 ml @ 75 mls/hr IV .[id number] [facility] Rx#:[id number] Zosyn 4.5 gm In Dextrose 5% in 50 / 200 100 / 100 Water 50 ml @ 100 mls/hr IV Q6H [facility] Rx#:[id number] Vancomycin 1,000 mg In Sodium 250 / 500 Chloride 0.9% 250 ml @ 250 mls/ hr IV Q8H [facility] Rx#:[id number] Oral 550 / 1210 240 / 240 Output: Urine Catheter Amount 1999 Void Amount 1500 / 4500 1000 / 1000 Stool 350 / 350 Other: Stool Size Small Stool Color Brown Stool Consistency Loose Intake & Output: Intake & Output 12/07/18 12/07/18 12/07/18 05:59 13:59 21:59 Intake Total 915 / 4365 1367 / 1367 0 / 1367 Output Total 1500 / 4500 2350 / 3350 1000 / 3350 Balance -585 / -135 -983 / -1982 -999 / Intake: IV 365 / 3155 1127 / 1127 0 / 1127 Dextrose 5%-1/2Ns W/20Meq KCl 1 966 / 966 ,000 ml @ 75 mls/hr IV .[id number] [facility] Rx#:[id number] Zosyn 4.5 gm In Dextrose 5% in 50 / 200 100 / 100 Water 50 ml @ 100 mls/hr IV Q6H [facility] Rx#:[id number] Vancomycin 1,000 mg In Sodium 250 / 500 Chloride 0.9% 250 ml @ 250 mls/ hr IV Q8H [facility] Rx#:[id number] Oral 550 / 1210 240 / 240 Output: Urine Catheter Amount 1999 Void Amount 1500 / 4500 1000 / 1000 Stool 350 / 350 Other: Stool Size Small Stool Color Brown Stool Consistency Loose - Lab 12/07/18 08:27 12/07/18 08:27 Most recent lab results Calcium 8.9 mg/dl (8.6-10.4) 12/07/18 08:27 Phosphorus 5.2 mg/dL (2.7-4.5) H 12/07/18 08:27 Magnesium 2.1 mg/dL (1.6-2.5) 12/07/18 08:27 Microbiology 12/03/18 11:15 Blood Blood Culture - Preliminary 12/05/18 11:58 Wound - Deep Gram Stain - Final 12/05/18 11:58 Wound - Deep Anaerobic Culture - Preliminary 12/05/18 11:58 Abdomen - Middle Gram Stain - Final 12/05/18 11:58 Abdomen - Middle Anaerobic Culture - Preliminary 12/03/18 10:51 Blood Blood Culture - Preliminary 12/05/18 11:58 Wound - Deep Gram Stain - Final 12/05/18 11:58 Wound - Deep Wound Culture - Preliminary 12/05/18 11:14 Abdomen - Middle Gram Stain - Final 12/05/18 11:14 Abdomen - Middle Wound Culture - Final 12/01/18 16:38 Blood Blood Culture - Final 12/01/18 16:34 Blood Blood Culture - Final 12/05/18 11:20 Abdominal Fluid Gram Stain - Final 12/05/18 11:20 Abdominal Fluid Body Fluid Culture - Final 11/29/18 23:42 Appendix Gram Stain - Final 11/29/18 23:42 Appendix Gram Stain - Final 11/29/18 23:42 Appendix Anaerobic Culture - Final 11/29/18 23:42 Abdominal Fluid Gram Stain - Final 11/29/18 23:42 Abdominal Fluid Body Fluid Culture - Final 11/29/18 19:30 Urine - Clean Void Mid-Stream Urine Culture - Final 11/30/18 00:04 Nose MRSA (PCR) - Final Medications Active Medications: Acyclovir (Zovirax) 200 mg PO 5XD [facility] Last Admin: 12/07/18 14:15 Dose: 200 mg Documented by: MARIA INES Admin: 12/07/18 11:44 Dose: 200 mg Documented by: MARIA INES Diphenhydramine HCl (Benadryl) 25 mg IV Q6HP PRN PRN Reason: Itching Docusate Sodium (Colace) 100 mg PO BID [facility] Last Admin: 12/07/18 08:58 Dose: 100 mg Documented by: MARIA INES Admin: 12/06/18 20:58 Dose: 100 mg Documented by: Admin: 12/06/18 08:44 Dose: 100 mg Documented by: MARIA INES Admin: 12/05/18 21:28 Dose: 100 mg Documented by: JACQUIE Enoxaparin Sodium (Lovenox) 40 mg SQ DAILY [facility] Last Admin: 12/07/18 08:59 Dose: 40 mg Documented by: MARIA INES Admin: 12/06/18 08:45 Dose: 40 mg Documented by: MARIA INES Famotidine (Pepcid) 20 mg IV Q12 [facility] Last Admin: 12/07/18 08:59 Dose: 20 mg Documented by: MARIA INES Admin: 12/06/18 20:58 Dose: 20 mg Documented by: Admin: 12/06/18 08:44 Dose: 20 mg Documented by: MARIA INES Admin: 12/05/18 21:28 Dose: 20 mg Documented by: JACQUIE Flumazenil (Romazicon) 0.2 mg IV Q1MIN PRN PRN Reason: BENZODIAZEPINE REVERSAL Hydromorphone HCl (Dilaudid All Around Patternmaker) 30 mg IV UD PRN; Protocol PRN Reason: Pain Potassium Chloride/Dextrose/Sod Cl (Dextrose 5%-1/2ns W/20meq Kcl) 1,000 mls @ 75 mls/hr IV .[id number] [facility] Last Admin: 12/07/18 11:42 Dose: 75 mls/hr Documented by: MARIA INES Infusion: 12/07/18 11:42 Dose: 75 mls/hr Documented by: MARIA INES Admin: 12/06/18 22:49 Dose: 75 mls/hr Documented by: Infusion: 12/06/18 21:27 Dose: 75 mls/hr Documented by: Admin: 12/06/18 08:07 Dose: 75 mls/hr Documented by: MARIA INES Infusion: 12/06/18 08:07 Dose: 75 mls/hr Documented by: MARIA INES Admin: 12/05/18 18:58 Dose: 75 mls/hr Documented by: ABEL Sodium Chloride (Sodium Chloride 0.9%) 250 mls @ 20 mls/hr IV .[id number] [facility] Last Admin: 12/07/18 08:08 Dose: Not Given Documented by: MARIA INES Non-Admin Reason: Bag Still Infusing Admin: 12/06/18 19:51 Dose: Not Given Documented by: CARIE Non-Admin Reason: Not needed Admin: 12/06/18 10:28 Dose: Not Given Documented by: MARIA INES Non-Admin Reason: Bag Still Infusing Admin: 12/05/18 19:20 Dose: Not Given Documented by: ABEL Non-Admin Reason: Not needed Acetaminophen (Ofirmev) 650 mg in 65 mls @ 130 mls/hr IV Q6HP PRN PRN Reason: PAIN/FEVER > 101 Last Admin: 12/07/18 16:13 Dose: 100 mls/hr Documented by: MARIA INES Infusion: 12/07/18 16:13 Dose: 0 mls/hr Documented by: MARIA INES Infusion: 12/07/18 08:08 Dose: 0 mls/hr Documented by: MARIA INES Admin: 12/07/18 07:40 Dose: 130 mls/hr Documented by: KCLGarcía Infusion: 12/06/18 22:45 Dose: 130 mls/hr Documented by: Admin: 12/06/18 22:15 Dose: 130 mls/hr Documented by: Infusion: 12/06/18 13:52 Dose: 0 mls/hr Documented by: MARIA INES Admin: 12/06/18 13:00 Dose: 130 mls/hr Documented by: MARIA INES Piperacillin Sod/Tazobactam (Sod 3.375 gm/ Dextrose) 50 mls @ 100 mls/hr IV Q6H [facility] Last Admin: 12/07/18 13:13 Dose: 100 mls/hr Documented by: MARIA INES Iron Carb/Multivit/Fireproof Door Assembler/Folic Acid (Multivitamin W/Minerals) 1 tab PO DAILY [facility] Last Admin: 12/07/18 08:58 Dose: 1 tab Documented by: MARIA INES Admin: 12/06/18 08:45 Dose: 1 tab Documented by: MARIA INES Lorazepam (Ativan) 0.5 mg PO Q12HP PRN PRN Reason: ANXIETY/SEDATION Magnesium Hydroxide (Milk Of Magnesia) 30 ml PO DAILY [facility] Last Admin: 12/07/18 08:59 Dose: 30 ml Documented by: MARIA INES Admin: 12/06/18 08:44 Dose: 30 ml Documented by: MARIA INES Metoclopramide HCl (Reglan) 5 mg PO Q6H [facility] Last Admin: 12/07/18 11:44 Dose: 5 mg Documented by: MARI AINES Admin: 12/07/18 06:24 Dose: 5 mg Documented by: Admin: 12/07/18 00:17 Dose: 5 mg Documented by: Admin: 12/06/18 18:20 Dose: 5 mg Documented by: MARIA INES Admin: 12/06/18 12:53 Dose: 5 mg Documented by: MARIA INES Admin: 12/06/18 05:48 Dose: 5 mg Documented by: Admin: 12/06/18 00:26 Dose: 5 mg Documented by: JACQUIE Naloxone HCl (Narcan) 0.1 mg IV Q2MIN PRN PRN Reason: Opiate Reversal Nystatin (Nystatin) 500,000 units SSW QID [facility] Last Admin: 12/07/18 15:42 Dose: 500,000 units Documented by: MARIA INES Ondansetron HCl (Zofran Odt) 4 mg SL Q4-6HP PRN PRN Reason: Nausea And Vomiting Last Admin: 12/07/18 08:58 Dose: 4 mg Documented by: MARIA INES Admin: 12/06/18 10:25 Dose: 4 mg Documented by: MARIA INES Admin: 12/05/18 19:19 Dose: 4 mg Documented by: LATFabricio Polyethylene Glycol (Miralax) 17 gm PO DAILY [facility] Last Admin: 12/07/18 08:59 Dose: 17 gm Documented by: MARIA INES Admin: 12/06/18 11:12 Dose: 17 gm Documented by: MARIA INES Sodium Chloride (Saline Flush) 10 ml IV Q8 [facility] Last Admin: 12/07/18 13:13 Dose: 10 ml Documented by: MARIA INES Admin: 12/07/18 06:25 Dose: 10 ml Documented by: Admin: 12/06/18 22:00 Dose: 10 ml Documented by: Admin: 12/06/18 12:55 Dose: 10 ml Documented by: MARIA INES Admin: 12/06/18 05:48 Dose: 10 ml Documented by: Admin: 12/05/18 21:28 Dose: 10 ml Documented by: JACQUIE Assessment and Plan - Narrative A/P Narrative: Assessment: 1. Acute perforated appendicitis with peritonitis with subsequent development of subcutaneous abscess [status post I&D on 12-05-18]: Scheduled for exploration under anesthesia of the surgical incision today On day 8 of IV Zosyn, and day 4 of IV vancomycin with clinical improvement Negative C. difficile - blood Cx no growth till date - wound cultures on the anaerobic plate showing some growth [not staph aureus, not Pseudomonas], pending ID and susceptibility 2. No concerns for sepsis at this point 3. Transient elevation in liver enzymes on 12/06/18: Trended down today Unsure of the etiology but least likely secondary to antibiotics as both pink and Zosyn have been fairly pain associated with elevation in liver enzymes. Recommendations: Given lack of growth of MRSA on blood and wound cultures, IV vancomycin was stopped this a.m. Will de-escalate the dose of Zosyn to 3.375 g IV every 6 hours Agree with further wound exploration given persistence of pain and seepage into the dressing Based on the clinical course over next few days will plan for switching to oral antibiotics will follow Reginaldo Calvert MD Infectious disease
[2018-12-08] MEDS: PIPERACILLIN SODIUM/TAZOBACTAM 3.375 GM in DEXTROSE 5% IN WATER 50 ML IV SCH ×4 (00:32→17:35)
[2018-12-08] MEDS: METOCLOPRAMIDE 10 MG TABLET PO SCH ×4 (00:32→17:38)
[2018-12-08] MEDS: ONDANSETRON 4 MG ODT TABLET SL PRN ×2 (03:05→14:48)
[2018-12-08] MEDS: DEXTROSE 5%-1/2NS W/20MEQ KCL 1,000 ML IV SCH ×2 (03:05→14:49)
[2018-12-08] MEDS: 0.9 % SODIUM CHLORIDE 10 ML SYRINGE IV SCH ×3 (05:34→22:58)
[2018-12-08] MEDS: ACYCLOVIR 400 MG TABLET PO SCH ×5 (08:48→20:17)
[2018-12-08] MEDS: ENOXAPARIN 40 MG/0.4 ML SYRINGE SQ SCH (08:49)
[2018-12-08] MEDS: FAMOTIDINE/PF 20 MG/2 ML VIAL IV SCH ×2 (08:49→20:18)
[2018-12-08] MEDS: DOCUSATE SODIUM 100 MG CAPSULE PO SCH ×2 (08:49→20:18)
[2018-12-08] MEDS: MAGNESIUM HYDROXIDE 30 ML ORAL.SUSP PO SCH (09:00)
[2018-12-08] MEDS: NYSTATIN 500,000 UNITS/5 ML ORAL.SUSP SSW SCH ×4 (09:01→20:17)
[2018-12-08] MEDS: MULTIVIT,THER IRON,CA,FA & MIN 1 TABLET PO SCH (09:03)
[2018-12-08 09:17] LABS: Basophils # (Auto) 0 K/mcL (0.0-0.3); Basophils % (Auto) 0.2 % (0.0-2.0); Eosinophils # (Auto) 0.2 K/mcL (0.0-0.7); Granulocytes % (Auto) 70.1 % (38.0-78.0); Lymphocytes # (Auto) 1.5 K/mcL (1.5-4.8); Lymphocytes % (Auto) 19.7 % (15.5-49.0); Mean Cell Volume 86.2 fL (80.0-100.0); Monocytes # (Auto) 0.6 K/mcL (0.1-0.9); Platelet Count 864 K/mcL (140-440); RBC 3.77 M/mcL (4.00-5.20); Red Cell Distribution Width 12.8 % (11.5-14.5)
[2018-12-08 09:59] LABS: ALT/SGPT 59 U/l (0-40); Albumin/Globulin Ratio 0.7 (1.0-2.3); Alkaline Phosphatase 93 U/L (39-117); Bilirubin,Direct < 0.2 mg/dL (0.0-0.3); Blood Urea Nitrogen 5 mg/dl (6-20); Gamma Glutamyl Transpeptidase 27 U/L (5-36); Uric Acid 2.4 mg/dL (2.5-8.0)
--- NOTE | 2018-12-08 10:36 | Internal Med Progress Note ---
Medical - PN: Subj Patient information: Note initiated : 12/08/18 at 10:33 am Service Date, if different from initiated Date: [] Patient: Naomi Corrales a 27 y/o F admitted on 11/29/18 for right lower abd pain. Chief Complaint: [] Interval history: Ms. Corrales is a 27 year old F Who presented on the with severe abdominal pain which initially started 5 days earlier but woke up on this date severe pain. Presented to ED CT scan showed a perforated appendix. She was taken back to the OR for initial laparo scopic appendectomy and subsequently converted to open. During the surgery she was found to have perforated cecum as well with purulent appendicitis and localized peritonitis. Since then she started developed fevers and tachycardia today. She has some shortness of breath that associated with abdominal pain, and breathing shallow. Still has a lot of abdominal pain and has not maxed out the Dilaudid [employer]MER pump. Is felt that she might not be keeping on her pain. She is 5 months and breast-feeding. She is been on Zosyn as well as Flagyl. The Dilaudid CAD [employer] PROGRAMMER pump and Tylenol Toradol as needed. Her blood pressure is good and her oxygenation is good as well, respiratory rate is around 20. She reports fevers and chills. No chest pain no headache no nausea vomiting. [place] anxious earlier but is feeling better at this time. 1/3 Feeling better today. Pain is improved with pain regimen. She feels her bowels are waking up but she has not passed any flatus, She is burping. No cough chest pain shortness of breath. Does feel feverish at the moment. 1/ Feels feverish at times, some nausea. But otherwise no other complaints. Overall feeling improved. 12/04 Patient doing better. MAXIMUM TEMPERATURE 103 yesterday. Started on vancomycin per infectious disease specialist. White count 7.6. No abdominal pain nausea. Passing flatus. Postop management ongoing per surgery. 12/05-patient doing well. No overnight events except for low-grade fevers. No concerns per staff. Infectious disease specialist recommend CT abdomen chest pelvis in light of intermittent fever. ID also increased Zosyn to 4.5 g. Surgery on board. 12/06 No fevers. Feeling better. No nausea vomiting. No flatus. Taken OR yesterday with I&D of abscess. Heart rate is much better and again no fevers. 12/07 Feels like her bowels are starting to become active but does not notice any flatus yet. Has some increased abdominal pain overnight. Had some nausea but no vomiting. 12/08 Patient seen examined, in bed, still has some abdominal pain, BM overnight, pain is the biggest concern. LFT which were elevated are now trending down, Pt to be started on celebrex, in addition to tylenol and wardrobe specialist pain pump. Pt labs otherwise stable she has no active medical issue ongoing, and is being followed by Surgery and Infectious disease. Hospitalist team does not have any further input in patient management at this time. Will sign off, should the patient condition change we would be happy to see her again. Pertinent ROS: Denies headache, dizziness Denies chest pain, palpitations Denies cough or shortness of breath present abdominal pain, no vomiting. - Constitutional Vitals: Vital Signs Temp Pulse Resp BP Pulse Ox 98.3 F 95 H 18 110/65 94 12/08/18 04:00 12/07/18 11:45 12/08/18 04:00 12/08/18 04:00 12/08/18 04:00 Period Temp Pulse Resp BP Sys/Best Pulse Ox Last 24 Hr 97.9 F-98.4 F 95 16-18 106-113/61-72 94-96 Intake and Output 12/07/18 12/08/18 12/08/18 21:59 05:59 13:59 Intake Total 320 / 2789 1052 / 2789 50 / 50 Output Total 1800 / 4965 815 / 4965 Balance -1480 / -2176 237 / -2176 50 / 50 Weight 160 lb Intake & Output: Intake & Output 12/07/18 12/08/18 12/08/18 21:59 05:59 13:59 Intake Total 320 / 2789 1052 / 2789 50 / 50 Output Total 1800 / 4965 815 / 4965 Balance -1480 / -2176 237 / -2176 50 / 50 Weight 160 lb Intake: IV 80 / 2309 1052 / 2309 50 / 50 Dextrose 5%-1/2Ns W/20Meq KCl 1 1000 / 1966 ,000 ml @ 75 mls/hr IV .[id number] [facility] Rx#:[id number] Zosyn 3.375 gm In Dextrose 5% 50 / 150 50 / 150 50 / 50 in Water 50 ml @ 100 mls/hr IV Q6H [facility] Rx#:[id number] Oral 240 / 480 Output: Drainage A B Void Amount 1800 / 2600 800 / 2600 Other: Meal Dinner Percent of Meal Consumed 50% Feeding Ability Assist with Tray Set Up Urine Appearance Clear Sediment Urine Color Bright Yellow Bright Yellow # Voids 1 Exam: Constitutional; Afebrile, cooperative, alert, not in distress. Eyes- No icterus, , No periorbital swelling Ears- Ext ear normal, hearing normal to conversation. Neck- Midline trachea, supple Respiratory system: Air Entry equal on both sides, No crackles or wheezing, no rhonchi. CVS- Rate rhythm regular, S1,S2 heard, no gallop, no rub. Abdomen- tender to palpate, worse in right lower quadrant. AUTOMOBILE LOCATOR- AOOx3, moving all extremities, no gross focal deficit noted. Medical - PN: Obj Da - Labs CBC & Chem 7: 12/08/18 08:34 12/08/18 08:34 Labs: Abnormal Lab Results 12/08/18 12/08/18 12/07/18 08:34 08:34 08:27 WBC RBC 3.77 L Hgb 10.7 L Hct 32.5 L Plt Count 864 H MPV 6.9 L Gran % Lymph % (Auto) Gran # Lymph # (Auto) BUN 5 L Glucose Uric Acid 2.4 L Phosphorus 5.2 H GGT AST ALT 59 H Alkaline Phosphatase Lactate Dehydrogenase Albumin 3.0 L Globulin 4.1 H Albumin/Globulin Ratio 0.7 L Vancomycin Trough 25.6 H* 12/07/18 12/07/18 12/06/18 08:27 08:27 08:50 WBC RBC 3.62 L Hgb 10.5 L Hct 31.3 L Plt Count 679 H MPV 7.1 L Gran % 78.2 H Lymph % (Auto) 13.1 L Gran # Lymph # (Auto) 1.3 L BUN 4 L 5 L Glucose 111 H Uric Acid 2.4 L 1.7 L Phosphorus 5.2 H GGT 142 H AST 42 H ALT 53 H 53 H Alkaline Phosphatase 128 H Lactate Dehydrogenase 374 H Albumin 2.6 L 3.1 L Globulin 4.0 H 4.2 H Albumin/Globulin Ratio 0.7 L 0.7 L Vancomycin Trough 12/06/18 08:50 WBC 11.2 H RBC 3.82 L Hgb 10.9 L Hct 33.0 L Plt Count 648 H MPV 7.3 L Gran % 85.2 H Lymph % (Auto) 10.1 L Gran # 9.5 H Lymph # (Auto) 1.1 L BUN Glucose Uric Acid Phosphorus GGT AST ALT Alkaline Phosphatase Lactate Dehydrogenase Albumin Globulin Albumin/Globulin Ratio Vancomycin Trough Meds: Medications Acyclovir (Zovirax) 200 mg PO 5XD [facility] Last Admin: 12/08/18 08:48 Dose: 200 mg Documented by: Celecoxib (Celebrex) 200 mg PO DAILY [facility] Diphenhydramine HCl (Benadryl) 25 mg IV Q6HP PRN PRN Reason: Itching Docusate Sodium (Colace) 100 mg PO BID [facility] Last Admin: 12/08/18 08:49 Dose: 100 mg Documented by: Enoxaparin Sodium (Lovenox) 40 mg SQ DAILY [facility] Last Admin: 12/08/18 08:49 Dose: 40 mg Documented by: Famotidine (Pepcid) 20 mg IV Q12 [facility] Last Admin: 12/08/18 08:49 Dose: 20 mg Documented by: Flumazenil (Romazicon) 0.2 mg IV Q1MIN PRN PRN Reason: BENZODIAZEPINE REVERSAL Hydromorphone HCl (Dilaudid Wet Press Tender) 30 mg IV UD PRN; Protocol PRN Reason: Pain Last Admin: 12/08/18 08:57 Dose: 30 mg Documented by: Potassium Chloride/Dextrose/Sod Cl (Dextrose 5%-1/2ns W/20meq Kcl) 1,000 mls @ 75 mls/hr IV .[id number] [facility] Last Admin: 12/08/18 03:05 Dose: 75 mls/hr Documented by: Sodium Chloride (Sodium Chloride 0.9%) 250 mls @ 20 mls/hr IV .[id number] [facility] Last Admin: 12/07/18 20:52 Dose: Not Given Documented by: Acetaminophen (Ofirmev) 650 mg in 65 mls @ 130 mls/hr IV Q6HP PRN PRN Reason: PAIN/FEVER > 101 Last Infusion: 12/07/18 22:44 Dose: 130 mls/hr Documented by: Piperacillin Sod/Tazobactam (Sod 3.375 gm/ Dextrose) 50 mls @ 100 mls/hr IV Q6H [facility] Last Infusion: 12/08/18 06:58 Dose: Infused Documented by: Iron Carb/Multivit/[place]/Folic Acid (Multivitamin W/Minerals) 1 tab PO DAILY [facility] Last Admin: 12/08/18 09:03 Dose: 1 tab Documented by: Lorazepam (Ativan) 0.5 mg PO Q12HP PRN PRN Reason: ANXIETY/SEDATION Magnesium Hydroxide (Milk Of Magnesia) 30 ml PO DAILY [facility] Last Admin: 12/08/18 09:00 Dose: 30 ml Documented by: Metoclopramide HCl (Reglan) 5 mg PO Q6H [facility] Last Admin: 12/08/18 05:34 Dose: 5 mg Documented by: Naloxone HCl (Narcan) 0.1 mg IV Q2MIN PRN PRN Reason: Opiate Reversal Nystatin (Nystatin) 500,000 units SSW QID [facility] Last Admin: 12/08/18 09:01 Dose: 500,000 units Documented by: Ondansetron HCl (Zofran Odt) 4 mg SL Q4-6HP PRN PRN Reason: Nausea And Vomiting Last Admin: 12/08/18 03:05 Dose: 4 mg Documented by: Polyethylene Glycol (Miralax) 17 gm PO DAILY [facility] Last Admin: 12/07/18 08:59 Dose: 17 gm Documented by: Sodium Chloride (Saline Flush) 10 ml IV Q8 [facility] Last Admin: 12/08/18 05:34 Dose: Not Given Documented by: Medical - PN: A/P - Time Spent With Patient Total time spent is greater than 50% in coordination of care (as documented) at patient's floor/unit and/or counseling patient: - Narrative A/P Narrative: A: *Perforated appendix: s/p surgical intervention (11/29) - *Acute peritonitis: 2/2 above *Abd SQ abscess causing persistent Fever/tachy (IMProved): s/p I&D (12/05) -CTA chest no PE, CT a/p no unexpected findings -c. diff neg, lactate wnl as well as repeat -Also with Atelectasis -PCT improved * 5 months: *Post-op Anemia: P: -Abx per ID; pending intraop cx's, -Abd/diet per surgery -IS -encourage patient to keep on top of pain with CAD CAM PROGRAMMER pump, prn tylenol/ start on celebrex daily -Ambulation --ppx: lovenox/pepcid will sign off. Medical - PN: Qual - VTE Deep Vein Thrombosis/Pulmonary Embolism Present on Admission: No
[2018-12-08] MEDS: CELECOXIB 200 MG CAPSULE PO SCH (12:11)
[2018-12-08] MEDS: POLYETHYLENE GLYCOL 3350 17 GM PACKET PO SCH (12:12)
--- NOTE | 2018-12-08 12:47 | General Surgery Progress Note ---
Subjective Patient reports: feels better, pain is less, flatus, bowel movement, afebrile Narrative: Note initiated : 12/08/18 at 12:47 pm Service Date, if different from initiated Date: [] Patient: Naomi Corrales 27 y/o F admitted on 11/29/18 for right lower abd pain. Chief Complaint: [Patient is stable. Her pain is less. She's been afebrile since the sixth. Drainage from her incision is significantly decreased. Her biggest complaint is constipation.] Objective Temp Pulse Resp BP Pulse Ox 98.3 F 95 H 18 110/65 94 12/08/18 04:00 12/07/18 11:45 12/08/18 04:00 12/08/18 04:00 12/08/18 04:00 - Additional Data Intake & Output - Last 24 hours: Intake & Output 12/06/18 12/07/18 12/08/18 12/09/18 05:59 05:59 05:59 05:59 Intake Total 2515 / 2515 4125 / 4365 2789 / 2789 50 / 50 Output Total 5130 / 5130 4500 / 4500 4965 / 4965 Balance -2615 / -2615 -375 / -135 -2176 / -2176 50 / 50 Weight 167 lb 167 lb 160 lb - General physical appearance well developed, well nourished, no distress - Eyes PERRL, normal ocular movement - ENT normal pinna, normal nares, normal mucosa, no hearing loss, no congestion - Neck no masses, no bruits, trachea midline, no lymphadenopathy, no venous distension - Respiratory normal expansion, normal respiratory effort, clear to auscultation - Cardiovascular Cardiovascular exam: Present: normal rate and rhythm. Absent: irregular rhythm, JVD, tachycardia - Abdomen tender (mild incisional tenderness otherwise benign abdomen), bowel sounds (present), surgical scars (none), masses (none) - Integumentary no rash, no growths, no abnormal pigmentation - Neurologic normal coordination, normal sensation - Musculoskeletal normal gait, normal posture - Psychiatric oriented to time, oriented to person, oriented to place, speech is normal, memory intact - Labs 12/08/18 08:34 12/08/18 08:34 Diabetes panel 12/08/18 Range/Units 08:34 Sodium 140 (133-145) mmol/L Potassium 4.5 (3.3-5.1) mmol/L Chloride 99 (96-108) mmol/L Carbon Dioxide 28 (22-30) mmol/L BUN 5 L (6-20) mg/dl Creatinine 0.8 (0.6-1.1) mg/dl Glucose 97 (70-105) mg/dL Calcium 9.6 (8.6-10.4) mg/dl AST 34 (0-37) U/l ALT 59 H (0-40) U/l Alkaline Phosphatase 93 (39-117) U/L Total Protein 7.1 (5.9-8.4) gm/dL Albumin 3.0 L (3.2-5.2) gm/dL Triglycerides 112 (<150) mg/dl Calcium panel 12/08/18 Range/Units 08:34 Calcium 9.6 (8.6-10.4) mg/dl Phosphorus 5.2 H (2.7-4.5) mg/dL Albumin 3.0 L (3.2-5.2) gm/dL Pituitary panel 12/08/18 Range/Units 08:34 Sodium 140 (133-145) mmol/L Potassium 4.5 (3.3-5.1) mmol/L Chloride 99 (96-108) mmol/L Carbon Dioxide 28 (22-30) mmol/L BUN 5 L (6-20) mg/dl Creatinine 0.8 (0.6-1.1) mg/dl Glucose 97 (70-105) mg/dL Calcium 9.6 (8.6-10.4) mg/dl Adrenal panel 12/08/18 Range/Units 08:34 Sodium 140 (133-145) mmol/L Potassium 4.5 (3.3-5.1) mmol/L Chloride 99 (96-108) mmol/L Carbon Dioxide 28 (22-30) mmol/L BUN 5 L (6-20) mg/dl Creatinine 0.8 (0.6-1.1) mg/dl Glucose 97 (70-105) mg/dL Calcium 9.6 (8.6-10.4) mg/dl Total Bilirubin 0.3 (0.0-1.0) mg/dL AST 34 (0-37) U/l ALT 59 H (0-40) U/l Alkaline Phosphatase 93 (39-117) U/L Total Protein 7.1 (5.9-8.4) gm/dL Albumin 3.0 L (3.2-5.2) gm/dL Assessment and Plan (1) Acute appendicitis with perforation, localized peritonitis, and abscess Status: Acute Assessment and plan: Continue present therapy with plans for wound VAC placement on Thursday Current Visit: Yes (2) Post-operative infection Status: Acute Assessment and plan: Clinically improved with clean wound base. Current Visit: Yes - Time Spent With Patient Total time spent is greater than 50% in coordination of care (as documented) at patient's floor/unit and/or counseling patient:
--- NOTE | 2018-12-08 13:12 | Infectious Disease Prog Note ---
Subjective Patient information: Note initiated : 12/08/18 at 1:07 pm Service Date, if different from initiated Date: [] Patient: Naomi Corrales 27 y/o F admitted on 11/29/18 for right lower abd pain. Chief Complaint: [] Interval history: Patient is doing much better compared to yesterday. Denies any fever, chills, diarrhea, cough, shortness of breath. Her belly pain is getting better although she still has it on the right side. She also endorses some nausea. He is on soft diet. Had a liquid BM yesterday. Objective Objective Narrative: Alert, oriented x3 No thrush Chest clear to auscultation except for an area on the right posterior lung base where she has decreased to absent breath sounds S1-S2 normal, no murmurs auscultated Bowel sounds present Tender to touch with rebound and guarding on the right side, no tenderness or rebound or guarding on the left side of the abdominal, the incision sites are covered with the dressing No pedal edema - Vital Signs Vital signs: Vital Signs Temp Resp BP Pulse Ox 12/08/18 12:00 36.7 C 20 111/70 97 12/08/18 04:00 36.8 C 18 110/65 94 12/08/18 00:00 36.8 C 16 106/72 96 12/07/18 20:00 36.8 C 18 106/61 95 12/07/18 16:00 36.6 C 18 113/70 95 Intake and Output 12/07/18 12/08/18 12/08/18 21:59 05:59 13:59 Intake Total 320 / 2789 1052 / 2789 290 / 290 Output Total 1800 / 4965 815 / 4965 650 / 650 Balance -1480 / -2176 237 / -2176 -360 / -360 Intake: IV 80 / 2309 1052 / 2309 50 / 50 Dextrose 5%-1/2Ns W/20Meq KCl 1 1000 / 1966 ,000 ml @ 75 mls/hr IV .[id number] [facility] Rx#:[id number] Zosyn 3.375 gm In Dextrose 5% 50 / 150 50 / 150 50 / 50 in Water 50 ml @ 100 mls/hr IV Q6H [facility] Rx#:[id number] Oral 240 / 480 240 / 240 Output: Drainage 15 / 15 A 10 / 10 B 5 / 5 Void Amount 1800 / 2600 800 / 2600 650 / 650 Other: Meal Dinner Lunch Percent of Meal Consumed 50% 50% Feeding Ability Assist with Tray Set Up Assist with Tray Set Up Urine Appearance Clear Sediment Urine Color Bright Yellow Bright Yellow # Voids 1 Weight 72.575 kg Intake & Output: Intake & Output 12/07/18 12/08/18 12/08/18 21:59 05:59 13:59 Intake Total 320 / 2789 1052 / 2789 290 / 290 Output Total 1800 / 4965 815 / 4965 650 / 650 Balance -1480 / -2176 237 / -2176 -360 / -360 Weight 72.575 kg Intake: IV 80 / 2309 1052 / 2309 50 / 50 Dextrose 5%-1/2Ns W/20Meq KCl 1 1000 / 1966 ,000 ml @ 75 mls/hr IV .[id number] [facility] Rx#:[id number] Zosyn 3.375 gm In Dextrose 5% 50 / 150 50 / 150 50 / 50 in Water 50 ml @ 100 mls/hr IV Q6H [facility] Rx#:[id number] Oral 240 / 480 240 / 240 Output: Drainage 15 / 15 A 10 / 10 B 5 / 5 Void Amount 1800 / 2600 800 / 2600 650 / 650 Other: Meal Dinner Lunch Percent of Meal Consumed 50% 50% Feeding Ability Assist with Tray Set Up Assist with Tray Set Up Urine Appearance Clear Sediment Urine Color Bright Yellow Bright Yellow # Voids 1 - Lab 12/08/18 08:34 12/08/18 08:34 Most recent lab results Calcium 9.6 mg/dl (8.6-10.4) 12/08/18 08:34 Phosphorus 5.2 mg/dL (2.7-4.5) H 12/08/18 08:34 Magnesium 2.1 mg/dL (1.6-2.5) 12/08/18 08:34 Microbiology 12/03/18 11:15 Blood Blood Culture - Final 12/05/18 11:58 Wound - Deep Gram Stain - Final 12/05/18 11:58 Wound - Deep Anaerobic Culture - Preliminary 12/05/18 11:58 Abdomen - Middle Gram Stain - Final 12/05/18 11:58 Abdomen - Middle Anaerobic Culture - Preliminary 12/03/18 10:51 Blood Blood Culture - Final 12/05/18 11:58 Wound - Deep Gram Stain - Final 12/05/18 11:58 Wound - Deep Wound Culture - Preliminary 12/05/18 11:14 Abdomen - Middle Gram Stain - Final 12/05/18 11:14 Abdomen - Middle Wound Culture - Final 12/01/18 16:38 Blood Blood Culture - Final 12/01/18 16:34 Blood Blood Culture - Final 12/05/18 11:20 Abdominal Fluid Gram Stain - Final 12/05/18 11:20 Abdominal Fluid Body Fluid Culture - Final 11/29/18 23:42 Appendix Gram Stain - Final 11/29/18 23:42 Appendix Gram Stain - Final 11/29/18 23:42 Appendix Anaerobic Culture - Final 11/29/18 23:42 Abdominal Fluid Gram Stain - Final 11/29/18 23:42 Abdominal Fluid Body Fluid Culture - Final 11/29/18 19:30 Urine - Clean Void Mid-Stream Urine Culture - Final 11/30/18 00:04 Nose MRSA (PCR) - Final Medications Active Medications: Acyclovir (Zovirax) 200 mg PO 5XD [facility] Last Admin: 12/08/18 12:21 Dose: 200 mg Documented by: Admin: 12/08/18 08:48 Dose: 200 mg Documented by: Admin: 12/07/18 20:39 Dose: 200 mg Documented by: Admin: 12/07/18 17:33 Dose: 200 mg Documented by: [email or web address] Admin: 12/07/18 14:15 Dose: 200 mg Documented by: [email or web address] Admin: 12/07/18 11:44 Dose: 200 mg Documented by: [email or web address] Celecoxib (Celebrex) 200 mg PO DAILY [facility] Last Admin: 12/08/18 12:11 Dose: 200 mg Documented by: ABEL Diphenhydramine HCl (Benadryl) 25 mg IV Q6HP PRN PRN Reason: Itching Docusate Sodium (Colace) 100 mg PO BID [facility] Last Admin: 12/08/18 08:49 Dose: 100 mg Documented by: Admin: 12/07/18 20:39 Dose: 100 mg Documented by: Admin: 12/07/18 08:58 Dose: 100 mg Documented by: MARIA INES Admin: 12/06/18 20:58 Dose: 100 mg Documented by: Admin: 12/06/18 08:44 Dose: 100 mg Documented by: MARIA INES Admin: 12/05/18 21:28 Dose: 100 mg Documented by: JACQUIE Enoxaparin Sodium (Lovenox) 40 mg SQ DAILY [facility] Last Admin: 12/08/18 08:49 Dose: 40 mg Documented by: Admin: 12/07/18 08:59 Dose: 40 mg Documented by: MARIA INES Admin: 12/06/18 08:45 Dose: 40 mg Documented by: MARIA INES Famotidine (Pepcid) 20 mg IV Q12 [facility] Last Admin: 12/08/18 08:49 Dose: 20 mg Documented by: Admin: 12/07/18 20:39 Dose: 20 mg Documented by: Admin: 12/07/18 08:59 Dose: 20 mg Documented by: MARIA INES Admin: 12/06/18 20:58 Dose: 20 mg Documented by: Admin: 12/06/18 08:44 Dose: 20 mg Documented by: MARIA INES Admin: 12/05/18 21:28 Dose: 20 mg Documented by: JACQUIE Flumazenil (Romazicon) 0.2 mg IV Q1MIN PRN PRN Reason: BENZODIAZEPINE REVERSAL Hydromorphone HCl (Dilaudid Interlocker Maintainer) 30 mg IV UD PRN; Protocol PRN Reason: Pain Last Admin: 12/08/18 08:57 Dose: 30 mg Documented by: ABEL Potassium Chloride/Dextrose/Sod Cl (Dextrose 5%-1/2ns W/20meq Kcl) 1,000 mls @ 75 mls/hr IV .[id number] [facility] Last Admin: 12/08/18 03:05 Dose: 75 mls/hr Documented by: Infusion: 12/08/18 01:02 Dose: 75 mls/hr Documented by: Admin: 12/07/18 11:42 Dose: 75 mls/hr Documented by: MARIA INES Infusion: 12/07/18 11:42 Dose: 75 mls/hr Documented by: MARIA INES Admin: 12/06/18 22:49 Dose: 75 mls/hr Documented by: Infusion: 12/06/18 21:27 Dose: 75 mls/hr Documented by: Admin: 12/06/18 08:07 Dose: 75 mls/hr Documented by: MARIA INES Infusion: 12/06/18 08:07 Dose: 75 mls/hr Documented by: [email or web address] Admin: 12/05/18 18:58 Dose: 75 mls/hr Documented by: ABEL Sodium Chloride (Sodium Chloride 0.9%) 250 mls @ 20 mls/hr IV .[id number] [facility] Last Admin: 12/07/18 20:52 Dose: Not Given Documented by: JACQUIE Non-Admin Reason: Not needed Admin: 12/07/18 08:08 Dose: Not Given Documented by: MARIA INES Non-Admin Reason: Bag Still Infusing Admin: 12/06/18 19:51 Dose: Not Given Documented by: CARIE Non-Admin Reason: Not needed Admin: 12/06/18 10:28 Dose: Not Given Documented by: MARIA INES Non-Admin Reason: Bag Still Infusing Admin: 12/05/18 19:20 Dose: Not Given Documented by: ABEL Non-Admin Reason: Not needed Acetaminophen (Ofirmev) 650 mg in 65 mls @ 130 mls/hr IV Q6HP PRN PRN Reason: PAIN/FEVER > 101 Last Infusion: 12/07/18 22:44 Dose: 130 mls/hr Documented by: Admin: 12/07/18 22:43 Dose: 100 mls/hr Documented by: Infusion: 12/07/18 17:00 Dose: 0 mls/hr Documented by: [email or web address] Admin: 12/07/18 16:13 Dose: 100 mls/hr Documented by: [email or web address] Infusion: 12/07/18 16:13 Dose: 0 mls/hr Documented by: MARIA INES Infusion: 12/07/18 08:08 Dose: 0 mls/hr Documented by: MARIA INES Admin: 12/07/18 07:40 Dose: 130 mls/hr Documented by: Infusion: 12/06/18 22:45 Dose: 130 mls/hr Documented by: Admin: 12/06/18 22:15 Dose: 130 mls/hr Documented by: Infusion: 12/06/18 13:52 Dose: 0 mls/hr Documented by: MARIA INES Admin: 12/06/18 13:00 Dose: 130 mls/hr Documented by: MARIA INES Piperacillin Sod/Tazobactam (Sod 3.375 gm/ Dextrose) 50 mls @ 100 mls/hr IV Q6H [facility] Last Admin: 12/08/18 12:11 Dose: 100 mls/hr Documented by: Infusion: 12/08/18 06:58 Dose: 100 mls/hr Documented by: Admin: 12/08/18 05:34 Dose: 100 mls/hr Documented by: Infusion: 12/08/18 03:08 Dose: 0 mls/hr Documented by: Admin: 12/08/18 00:32 Dose: 100 mls/hr Documented by: Infusion: 12/07/18 20:53 Dose: 0 mls/hr Documented by: Admin: 12/07/18 17:33 Dose: 100 mls/hr Documented by: MARIA INES Infusion: 12/07/18 13:45 Dose: 0 mls/hr Documented by: MARIA INES Admin: 12/07/18 13:13 Dose: 100 mls/hr Documented by: MARIA INES Iron Carb/Multivit/Access Clinician/Folic Acid (Multivitamin W/Minerals) 1 tab PO DAILY [facility] Last Admin: 12/08/18 09:03 Dose: 1 tab Documented by: Admin: 12/07/18 08:58 Dose: 1 tab Documented by: MARIA INES Admin: 12/06/18 08:45 Dose: 1 tab Documented by: MARIA INES Lorazepam (Ativan) 0.5 mg PO Q12HP PRN PRN Reason: ANXIETY/SEDATION Magnesium Hydroxide (Milk Of Magnesia) 30 ml PO DAILY [facility] Last Admin: 12/08/18 09:00 Dose: 30 ml Documented by: Admin: 12/07/18 08:59 Dose: 30 ml Documented by: MARIA INES Admin: 12/06/18 08:44 Dose: 30 ml Documented by: [email or web address] Metoclopramide HCl (Reglan) 5 mg PO Q6H [facility] Last Admin: 12/08/18 12:10 Dose: 5 mg Documented by: Admin: 12/08/18 05:34 Dose: 5 mg Documented by: Admin: 12/08/18 00:32 Dose: 5 mg Documented by: Admin: 12/07/18 17:37 Dose: 5 mg Documented by: MARIA INES Admin: 12/07/18 11:44 Dose: 5 mg Documented by: MARIA INES Admin: 12/07/18 06:24 Dose: 5 mg Documented by: Admin: 12/07/18 00:17 Dose: 5 mg Documented by: Admin: 12/06/18 18:20 Dose: 5 mg Documented by: MARIA INES Admin: 12/06/18 12:53 Dose: 5 mg Documented by: MARIA INES Admin: 12/06/18 05:48 Dose: 5 mg Documented by: Admin: 12/06/18 00:26 Dose: 5 mg Documented by: JACQUIE Naloxone HCl (Narcan) 0.1 mg IV Q2MIN PRN PRN Reason: Opiate Reversal Nystatin (Nystatin) 500,000 units SSW QID [facility] Last Admin: 12/08/18 12:22 Dose: 500,000 units Documented by: Admin: 12/08/18 09:01 Dose: 500,000 units Documented by: Admin: 12/07/18 20:39 Dose: 500,000 units Documented by: Admin: 12/07/18 15:42 Dose: 500,000 units Documented by: MARIA INES Ondansetron HCl (Zofran Odt) 4 mg SL Q4-6HP PRN PRN Reason: Nausea And Vomiting Last Admin: 12/08/18 03:05 Dose: 4 mg Documented by: Admin: 12/07/18 08:58 Dose: 4 mg Documented by: MARIA INES Admin: 12/06/18 10:25 Dose: 4 mg Documented by: MARIA INES Admin: 12/05/18 19:19 Dose: 4 mg Documented by: ABEL Polyethylene Glycol (Miralax) 17 gm PO DAILY [facility] Last Admin: 12/08/18 12:12 Dose: 17 gm Documented by: Admin: 12/07/18 08:59 Dose: 17 gm Documented by: MARIA INES Admin: 12/06/18 11:12 Dose: 17 gm Documented by: MARIA INES Sodium Chloride (Saline Flush) 10 ml IV Q8 [facility] Last Admin: 12/08/18 05:34 Dose: Not Given Documented by: JACQUIE Non-Admin Reason: Bag Still Infusing Admin: 12/07/18 20:43 Dose: 10 ml Documented by: Admin: 12/07/18 13:13 Dose: 10 ml Documented by: MARIA INES Admin: 12/07/18 06:25 Dose: 10 ml Documented by: Admin: 12/06/18 22:00 Dose: 10 ml Documented by: Admin: 12/06/18 12:55 Dose: 10 ml Documented by: MARIA INES Admin: 12/06/18 05:48 Dose: 10 ml Documented by: Admin: 12/05/18 21:28 Dose: 10 ml Documented by: JACQUIE
--- NOTE | 2018-12-08 14:20 | Infectious Disease Prog Note ---
Subjective Patient information: Note initiated : 12/08/18 at 2:06 pm Service Date, if different from initiated Date: [] Patient: Naomi Corrales 27 y/o F admitted on 11/29/18 for right lower abd pain. Chief Complaint: [] Interval history: Patient is doing much better compared to yesterday. She denies any fever, c hills, vomiting, diarrhea. She had a liquid BM this morning. Endorses some right-sided belly pain, although feels that the pain on the left side is almost gone. Endorses some nausea but controlled with the medication. Is on a soft diet currently. [place] drains with minimal output Objective Objective Narrative: Alert, oriented, no distress No thrush Chest clear to auscultation except on the posterior right lung base where it is decreased breath sounds Heart sounds normal, no murmurs Bowel sounds present Tender to touch with guarding and rebound on the right side of abdominal, incisions covered under dressing No edema - Vital Signs Vital signs: Vital Signs Temp Resp BP Pulse Ox 12/08/18 12:00 36.7 C 20 111/70 97 12/08/18 04:00 36.8 C 18 110/65 94 12/08/18 00:00 36.8 C 16 106/72 96 12/07/18 20:00 36.8 C 18 106/61 95 12/07/18 16:00 36.6 C 18 113/70 95 Intake and Output 12/08/18 12/08/18 12/08/18 05:59 13:59 21:59 Intake Total 1052 / 2789 290 / 290 Output Total 815 / 4965 650 / 650 Balance 237 / -2176 -360 / -360 Intake: IV 1052 / 2309 50 / 50 Dextrose 5%-1/2Ns W/20Meq KCl 1 1000 / 1966 ,000 ml @ 75 mls/hr IV .[id number] [facility] Rx#:[id number] Zosyn 3.375 gm In Dextrose 5% 50 / 150 50 / 50 in Water 50 ml @ 100 mls/hr IV Q6H [facility] Rx#:[id number] Oral 240 / 240 Output: Drainage 15 / 15 A 10 / 10 B 5 / 5 Void Amount 800 / 2600 650 / 650 Other: Meal Lunch Percent of Meal Consumed 50% Feeding Ability Assist with Tray Set Up Urine Appearance Sediment Urine Color Bright Yellow Intake & Output: Intake & Output 12/08/18 12/08/18 12/08/18 05:59 13:59 21:59 Intake Total 1052 / 2789 290 / 290 Output Total 815 / 4965 650 / 650 Balance 237 / -2176 -360 / -360 Intake: IV 1052 / 2309 50 / 50 Dextrose 5%-1/2Ns W/20Meq KCl 1 1000 / 1966 ,000 ml @ 75 mls/hr IV .[id number] [facility] Rx#:[id number] Zosyn 3.375 gm In Dextrose 5% 50 / 150 50 / 50 in Water 50 ml @ 100 mls/hr IV Q6H [facility] Rx#:[id number] Oral 240 / 240 Output: Drainage A 10 / 10 B 5 / 5 Void Amount 800 / 2600 650 / 650 Other: Meal Lunch Percent of Meal Consumed 50% Feeding Ability Assist with Tray Set Up Urine Appearance Sediment Urine Color Bright Yellow - Lab 12/08/18 08:34 12/08/18 08:34 Most recent lab results Calcium 9.6 mg/dl (8.6-10.4) 12/08/18 08:34 Phosphorus 5.2 mg/dL (2.7-4.5) H 12/08/18 08:34 Magnesium 2.1 mg/dL (1.6-2.5) 12/08/18 08:34 Microbiology 12/03/18 11:15 Blood Blood Culture - Final 12/05/18 11:58 Wound - Deep Gram Stain - Final 12/05/18 11:58 Wound - Deep Anaerobic Culture - Preliminary 12/05/18 11:58 Abdomen - Middle Gram Stain - Final 12/05/18 11:58 Abdomen - Middle Anaerobic Culture - Preliminary 12/03/18 10:51 Blood Blood Culture - Final 12/05/18 11:58 Wound - Deep Gram Stain - Final 12/05/18 11:58 Wound - Deep Wound Culture - Preliminary 12/05/18 11:14 Abdomen - Middle Gram Stain - Final 12/05/18 11:14 Abdomen - Middle Wound Culture - Final 12/01/18 16:38 Blood Blood Culture - Final 12/01/18 16:34 Blood Blood Culture - Final 12/05/18 11:20 Abdominal Fluid Gram Stain - Final 12/05/18 11:20 Abdominal Fluid Body Fluid Culture - Final 11/29/18 23:42 Appendix Gram Stain - Final 11/29/18 23:42 Appendix Gram Stain - Final 11/29/18 23:42 Appendix Anaerobic Culture - Final 11/29/18 23:42 Abdominal Fluid Gram Stain - Final 11/29/18 23:42 Abdominal Fluid Body Fluid Culture - Final 11/29/18 19:30 Urine - Clean Void Mid-Stream Urine Culture - Final 11/30/18 00:04 Nose MRSA (PCR) - Final Medications Active Medications: Acyclovir (Zovirax) 200 mg PO 5XD [facility] Last Admin: 12/08/18 12:21 Dose: 200 mg Documented by: Admin: 12/08/18 08:48 Dose: 200 mg Documented by: Admin: 12/07/18 20:39 Dose: 200 mg Documented by: Admin: 12/07/18 17:33 Dose: 200 mg Documented by: MARIA INES Admin: 12/07/18 14:15 Dose: 200 mg Documented by: MARIA INES Admin: 12/07/18 11:44 Dose: 200 mg Documented by: MARIA INES Celecoxib (Celebrex) 200 mg PO DAILY [facility] Admin: 12/08/18 12:11 Dose: 200 mg Documented by: ABEL Diphenhydramine HCl (Benadryl) 25 mg IV Q6HP PRN PRN Reason: Itching Docusate Sodium (Colace) 100 mg PO BID [facility] Admin: 12/08/18 08:49 Dose: 100 mg Documented by: Admin: 12/07/18 20:39 Dose: 100 mg Documented by: Admin: 12/07/18 08:58 Dose: 100 mg Documented by: MARIA INES Admin: 12/06/18 20:58 Dose: 100 mg Documented by: Admin: 12/06/18 08:44 Dose: 100 mg Documented by: MARIA INES Admin: 12/05/18 21:28 Dose: 100 mg Documented by: JACQUIE Enoxaparin Sodium (Lovenox) 40 mg SQ DAILY [facility] Admin: 12/08/18 08:49 Dose: 40 mg Documented by: Admin: 12/07/18 08:59 Dose: 40 mg Documented by: MARIA INES Admin: 12/06/18 08:45 Dose: 40 mg Documented by: MARIA INES Famotidine (Pepcid) 20 mg IV Q12 [facility] Last Admin: 12/08/18 08:49 Dose: 20 mg Documented by: Admin: 12/07/18 20:39 Dose: 20 mg Documented by: Admin: 12/07/18 08:59 Dose: 20 mg Documented by: MARIA INES Admin: 12/06/18 20:58 Dose: 20 mg Documented by: Admin: 12/06/18 08:44 Dose: 20 mg Documented by: MARIA INES Admin: 12/05/18 21:28 Dose: 20 mg Documented by: JACQUIE Flumazenil (Romazicon) 0.2 mg IV Q1MIN PRN PRN Reason: BENZODIAZEPINE REVERSAL Hydromorphone HCl (Dilaudid Staff Counsel) 30 mg IV UD PRN; Protocol PRN Reason: Pain Last Admin: 12/08/18 08:57 Dose: 30 mg Documented by: ABEL Potassium Chloride/Dextrose/Sod Cl (Dextrose 5%-1/2ns W/20meq Kcl) 1,000 mls @ 75 mls/hr IV .[id number] [facility] Last Admin: 12/08/18 03:05 Dose: 75 mls/hr Documented by: Infusion: 12/08/18 01:02 Dose: 75 mls/hr Documented by: Admin: 12/07/18 11:42 Dose: 75 mls/hr Documented by: MARIA INES Infusion: 12/07/18 11:42 Dose: 75 mls/hr Documented by: MARIA INES Admin: 12/06/18 22:49 Dose: 75 mls/hr Documented by: Infusion: 12/06/18 21:27 Dose: 75 mls/hr Documented by: Admin: 12/06/18 08:07 Dose: 75 mls/hr Documented by: MARIA INES Infusion: 12/06/18 08:07 Dose: 75 mls/hr Documented by: MARIA INES Admin: 12/05/18 18:58 Dose: 75 mls/hr Documented by: ABEL Sodium Chloride (Sodium Chloride 0.9%) 250 mls @ 20 mls/hr IV .[id number] [facility] Last Admin: 12/07/18 20:52 Dose: Not Given Documented by: JACQUIE Non-Admin Reason: Not needed Admin: 12/07/18 08:08 Dose: Not Given Documented by: MARIA INES Non-Admin Reason: Bag Still Infusing Admin: 12/06/18 19:51 Dose: Not Given Documented by: CARIE Non-Admin Reason: Not needed Admin: 12/06/18 10:28 Dose: Not Given Documented by: MARIA INES Non-Admin Reason: Bag Still Infusing Admin: 12/05/18 19:20 Dose: Not Given Documented by: ABEL Non-Admin Reason: Not needed Acetaminophen (Ofirmev) 650 mg in 65 mls @ 130 mls/hr IV Q6HP PRN PRN Reason: PAIN/FEVER > 101 Last Infusion: 12/07/18 22:44 Dose: 130 mls/hr Documented by: Admin: 12/07/18 22:43 Dose: 100 mls/hr Documented by: Infusion: 12/07/18 17:00 Dose: 0 mls/hr Documented by: MARIA INES Admin: 12/07/18 16:13 Dose: 100 mls/hr Documented by: MARIA INES Infusion: 12/07/18 16:13 Dose: 0 mls/hr Documented by: MARIA INES Infusion: 12/07/18 08:08 Dose: 0 mls/hr Documented by: MARIA INES Admin: 12/07/18 07:40 Dose: 130 mls/hr Documented by: Infusion: 12/06/18 22:45 Dose: 130 mls/hr Documented by: Admin: 12/06/18 22:15 Dose: 130 mls/hr Documented by: Infusion: 12/06/18 13:52 Dose: 0 mls/hr Documented by: [email or web address] Admin: 12/06/18 13:00 Dose: 130 mls/hr Documented by: MARIA INES Piperacillin Sod/Tazobactam (Sod 3.375 gm/ Dextrose) 50 mls @ 100 mls/hr IV Q6H [facility] Last Admin: 12/08/18 12:11 Dose: 100 mls/hr Documented by: Infusion: 12/08/18 06:58 Dose: 100 mls/hr Documented by: Admin: 12/08/18 05:34 Dose: 100 mls/hr Documented by: Infusion: 12/08/18 03:08 Dose: 0 mls/hr Documented by: Admin: 12/08/18 00:32 Dose: 100 mls/hr Documented by: Infusion: 12/07/18 20:53 Dose: 0 mls/hr Documented by: Admin: 12/07/18 17:33 Dose: 100 mls/hr Documented by: MARIA INES Infusion: 12/07/18 13:45 Dose: 0 mls/hr Documented by: MARIA INES Admin: 12/07/18 13:13 Dose: 100 mls/hr Documented by: MARIA INES Iron Carb/Multivit/[place]/Folic Acid (Multivitamin W/Minerals) 1 tab PO DAILY [facility] Last Admin: 12/08/18 09:03 Dose: 1 tab Documented by: Admin: 12/07/18 08:58 Dose: 1 tab Documented by: MARIA INES Admin: 12/06/18 08:45 Dose: 1 tab Documented by: MARIA INES Lorazepam (Ativan) 0.5 mg PO Q12HP PRN PRN Reason: ANXIETY/SEDATION Magnesium Hydroxide (Milk Of Magnesia) 30 ml PO DAILY [facility] Last Admin: 12/08/18 09:00 Dose: 30 ml Documented by: Admin: 12/07/18 08:59 Dose: 30 ml Documented by: MARIA INES Admin: 12/06/18 08:44 Dose: 30 ml Documented by: MARIA INES Metoclopramide HCl (Reglan) 5 mg PO Q6H [facility] Last Admin: 12/08/18 12:10 Dose: 5 mg Documented by: Admin: 12/08/18 05:34 Dose: 5 mg Documented by: Admin: 12/08/18 00:32 Dose: 5 mg Documented by: Admin: 12/07/18 17:37 Dose: 5 mg Documented by: MARIA INES Admin: 12/07/18 11:44 Dose: 5 mg Documented by: MARIA INES Admin: 12/07/18 06:24 Dose: 5 mg Documented by: Admin: 12/07/18 00:17 Dose: 5 mg Documented by: Admin: 12/06/18 18:20 Dose: 5 mg Documented by: MARIA INES Admin: 12/06/18 12:53 Dose: 5 mg Documented by: MARIA INES Admin: 12/06/18 05:48 Dose: 5 mg Documented by: Admin: 12/06/18 00:26 Dose: 5 mg Documented by: JACQUIE Naloxone HCl (Narcan) 0.1 mg IV Q2MIN PRN PRN Reason: Opiate Reversal Nystatin (Nystatin) 500,000 units SSW QID [facility] Last Admin: 12/08/18 12:22 Dose: 500,000 units Documented by: Admin: 12/08/18 09:01 Dose: 500,000 units Documented by: Admin: 12/07/18 20:39 Dose: 500,000 units Documented by: Admin: 12/07/18 15:42 Dose: 500,000 units Documented by: MARIA INES Ondansetron HCl (Zofran Odt) 4 mg SL Q4-6HP PRN PRN Reason: Nausea And Vomiting Last Admin: 12/08/18 03:05 Dose: 4 mg Documented by: Admin: 12/07/18 08:58 Dose: 4 mg Documented by: MARIA INES Admin: 12/06/18 10:25 Dose: 4 mg Documented by: MARIA INES Admin: 12/05/18 19:19 Dose: 4 mg Documented by: ABEL Polyethylene Glycol (Miralax) 17 gm PO DAILY [facility] Last Admin: 12/08/18 12:12 Dose: 17 gm Documented by: Admin: 12/07/18 08:59 Dose: 17 gm Documented by: MARIA INES Admin: 12/06/18 11:12 Dose: 17 gm Documented by: MARIA INES Sodium Chloride (Saline Flush) 10 ml IV Q8 [facility] Last Admin: 12/08/18 05:34 Dose: Not Given Documented by: JACQUIE Non-Admin Reason: Bag Still Infusing Admin: 12/07/18 20:43 Dose: 10 ml Documented by: Admin: 12/07/18 13:13 Dose: 10 ml Documented by: MARIA INES Admin: 12/07/18 06:25 Dose: 10 ml Documented by: Admin: 12/06/18 22:00 Dose: 10 ml Documented by: Admin: 12/06/18 12:55 Dose: 10 ml Documented by: [email or web address] Admin: 12/06/18 05:48 Dose: 10 ml Documented by: Admin: 12/05/18 21:28 Dose: 10 ml Documented by: JACQUIE Assessment and Plan - Narrative A/P Narrative: Assessment: 1. Acute perforated appendicitis with peritonitis with subsequent development of subcutaneous abscess [status post I&D on 12-05-18]: Scheduled for exploration under anesthesia of the surgical incision today On day 9 of IV Zosyn -Status post 4 days of IV vancomycin Negative C. difficile - blood Cx no growth till date - wound cultures on the anaerobic plate growing Hemophillus and anerobic GNR 2. No concerns for sepsis at this point 3. Elevated liver enzymes: Initially all liver enzymes are high but trended down and currently only ALT elevated at 59 Zosyn typically does not cause elevated liver enzymes, reported is a very rare side effect Persistence of ALT elevation warrants further investigation Recommendations: Continue Zosyn to 3.375 g IV every 6 hours Nystatin swish and swallow for oral thrush, day 2 out of 7 If patient continues to do well clinically, able to tolerate soft diet without vomiting; will plan to switch to oral Cipro and metronidazole tomorrow will follow Reginaldo Calvert MD Infectious disease
[2018-12-08] MEDS: 0.9 % SODIUM CHLORIDE 250 ML IV SCH ×2 (14:49→22:58)
[2018-12-08] MEDS: ACETAMINOPHEN 650 MG/65 ML BOTTLE IV PRN (21:19)
[2018-12-09] MEDS: PIPERACILLIN SODIUM/TAZOBACTAM 3.375 GM in DEXTROSE 5% IN WATER 50 ML IV SCH ×3 (00:10→12:24)
[2018-12-09] MEDS: METOCLOPRAMIDE 10 MG TABLET PO SCH ×4 (00:10→17:51)
[2018-12-09] MEDS: DEXTROSE 5%-1/2NS W/20MEQ KCL 1,000 ML IV SCH ×3 (03:23→17:55)
[2018-12-09] MEDS: 0.9 % SODIUM CHLORIDE 10 ML SYRINGE IV SCH ×3 (05:45→20:55)
[2018-12-09] MEDS: ACETAMINOPHEN 650 MG/65 ML BOTTLE IV PRN ×3 (07:33→21:09)
[2018-12-09] MEDS: ACYCLOVIR 400 MG TABLET PO SCH ×5 (08:01→20:44)
[2018-12-09] MEDS: MAGNESIUM HYDROXIDE 30 ML ORAL.SUSP PO SCH (08:25)
[2018-12-09] MEDS: NYSTATIN 500,000 UNITS/5 ML ORAL.SUSP SSW SCH ×4 (08:25→20:44)
[2018-12-09] MEDS: ONDANSETRON 4 MG ODT TABLET SL PRN (08:25)
[2018-12-09] MEDS: ENOXAPARIN 40 MG/0.4 ML SYRINGE SQ SCH (08:25)
[2018-12-09] MEDS: MULTIVIT,THER IRON,CA,FA & MIN 1 TABLET PO SCH (08:26)
[2018-12-09] MEDS: DOCUSATE SODIUM 100 MG CAPSULE PO SCH ×2 (08:26→20:44)
[2018-12-09] MEDS: CELECOXIB 200 MG CAPSULE PO SCH (08:26)
[2018-12-09] MEDS: FAMOTIDINE/PF 20 MG/2 ML VIAL IV SCH ×2 (08:26→20:45)
[2018-12-09] MEDS: POLYETHYLENE GLYCOL 3350 17 GM PACKET PO SCH (08:26)
--- NOTE | 2018-12-09 08:45 | XRay Report ---
CLINICAL INFORMATION: SOB, pain on inspiration COMPARISON: 12/01/2018 FINDINGS: Heart size, mediastinum and pulmonary vessels are normal. Minor right basilar atelectasis has developed and there is a small right pleural effusion. IMPRESSION: Minor right basilar atelectasis and small right pleural effusion - new from 12/01/2018 Interpreted and Authenticated by: Simba Kingsley 12/09/18
--- NOTE | 2018-12-09 12:04 | Operative Note ---
DATE OF OPERATION: 12/05/2018 PREOPERATIVE DIAGNOSIS: Postoperative wound infection with fasciitis. POSTOPERATIVE DIAGNOSIS: Postoperative wound infection with fasciitis. PROCEDURE: Open wound exploration with debridement and irrigation. SURGEON: Carine Eid M.D. FINDINGS: Turbid, brownish, thin, mucopurulent fluid in the subcutaneous tissue with inflammation of rectus and oblique fascial planes on the right, extending up towards the right subcostal area. DESCRIPTION OF PROCEDURE: Under general anesthesia, the patient's abdomen was prepped and draped in the sterile field. The old transverse incision was dissected open and a large volume of mucopurulent, tannish-brown liquid was encountered. This was suctioned. There was dissection superiorly in the subcutaneous and subfascial plane. This extended at least 10 cm superiorly and about 4 to 5 cm inferiorly in both subcutaneous and subfascial planes. Copious irrigation was carried out, after which using Metzenbaum scissors, the inflamed fascial tissue was excised back to viable muscle. This was done using primarily Metzenbaum scissors. Hemostasis was achieved with electrocautery. More irrigation with vancomycin irrigant was carried out, followed by bacitracin irrigant. Once this was done, it was felt that she probably would need another look before the wound could be treated with wound V.A.C. The subfascial and the subcutaneous tunnel areas were drained using [place] drains. The wound was loosely packed with Aquacel AG gauze. This was covered with 4 x 4s and ABD pad. The patient tolerated the procedure well. She was awakened, transferred to a bed, and taken to the postanesthetic care unit in satisfactory condition. LCS:jj Job ID: [id number] Doc ID: [id number] Carine Eid M.D.
[2018-12-09] MEDS: 0.9 % SODIUM CHLORIDE 250 ML IV SCH (14:00)
--- NOTE | 2018-12-09 14:10 | Infectious Disease Prog Note ---
Subjective Patient information: Note initiated : 12/09/18 at 2:07 pm Service Date, if different from initiated Date: [] Patient: Naomi Corrales a 27 y/o F admitted on 11/29/18 for right lower abd pain. Chief Complaint: [] Interval history: Patient was walking in the hallway when I visited her. She endorses nausea but denies any vomiting. Is on soft diet endorses pain on the right side of her abdomen elsewhere is fine. Denies any fever, chills. Both [place] drains from the abdomen with minimal drainage. Also spoke with patient about excretion of antibiotics and breastmilk and she mentioned that she is not planning to breast-feed her baby over next few days. Objective Objective Narrative: Alert, oriented x3 No thrush Has a scabbed lesion below the lower lip Chest clear to auscultation except for small area on the right posterior lung base with decreased breath sounds Heart sounds normal Bowel sounds present, tender to touch in the right side of abdominal No edema - Vital Signs Vital signs: Vital Signs Temp Pulse Pulse Resp BP BP Pulse Ox 12/09/18 12:00 37.2 C 18 103/64 97 12/09/18 08:00 36.9 C 89 16 106/66 97 12/09/18 07:44 89 97 12/09/18 04:00 36.7 C 78 16 99/63 98 12/09/18 00:00 36.2 C 85 18 101/61 97 12/08/18 20:00 37.1 C 95 H 18 112/73 96 12/08/18 16:00 20 Intake and Output 12/09/18 12/09/18 12/09/18 05:59 13:59 21:59 Intake Total 1258 / 2768 595 / 595 Output Total 1009 / 2779 Balance 249 / -11 595 / 595 Intake: IV 1058 / 2088 115 / 115 Dextrose 5%-1/2Ns W/20Meq KCl 1 943 / 1823 ,000 ml @ 75 mls/hr IV .[id number] [facility] Rx#:[id number] Zosyn 3.375 gm In Dextrose 5% 50 / 200 50 / 50 in Water 50 ml @ 100 mls/hr IV Q6H [facility] Rx#:[id number] Oral 200 / 680 480 / 480 Output: Drainage A B Void Amount 1000 / 2500 Other: Meal Lunch Percent of Meal Consumed 100% Feeding Ability Independent Urine Appearance Clear Urine Color Bright Yellow Urine Odor Normal Stool Size Small Stool Color Brown Stool Consistency Liquid # Voids 1 # Bowel Movements 3 Intake & Output: Intake & Output 12/09/18 12/09/18 12/09/18 05:59 13:59 21:59 Intake Total 1258 / 2768 595 / 595 Output Total 1009 / 2779 Balance 249 / -11 595 / 595 Intake: IV 1058 / 2088 115 / 115 Dextrose 5%-1/2Ns W/20Meq KCl 1 943 / 1823 ,000 ml @ 75 mls/hr IV .[id number] [facility] Rx#:[id number] Zosyn 3.375 gm In Dextrose 5% 50 / 200 50 / 50 in Water 50 ml @ 100 mls/hr IV Q6H [facility] Rx#:[id number] Oral 200 / 680 480 / 480 Output: Drainage A Void Amount 1000 / 2500 Other: Meal Lunch Percent of Meal Consumed 100% Feeding Ability Independent Urine Appearance Clear Urine Color Bright Yellow Urine Odor Normal Stool Size Small Stool Color Brown Stool Consistency Liquid # Voids 1 # Bowel Movements 3 - Lab 12/08/18 08:34 12/08/18 08:34 Most recent lab results Calcium 9.6 mg/dl (8.6-10.4) 12/08/18 08:34 Phosphorus 5.2 mg/dL (2.7-4.5) H 12/08/18 08:34 Magnesium 2.1 mg/dL (1.6-2.5) 12/08/18 08:34 Microbiology 12/05/18 11:58 Abdomen - Middle Gram Stain - Final 12/05/18 11:58 Abdomen - Middle Anaerobic Culture - Preliminary Bacteroides fragilis 12/05/18 11:58 Wound - Deep Gram Stain - Final 12/05/18 11:58 Wound - Deep Wound Culture - Final Haemophilus species Anaerobic gram positive rods 12/05/18 11:58 Wound - Deep Gram Stain - Final 12/05/18 11:58 Wound - Deep Anaerobic Culture - Preliminary Anaerobic gram neg bacillus 12/03/18 11:15 Blood Blood Culture - Final 12/03/18 10:51 Blood Blood Culture - Final 12/05/18 11:14 Abdomen - Middle Gram Stain - Final 12/05/18 11:14 Abdomen - Middle Wound Culture - Final 12/01/18 16:38 Blood Blood Culture - Final 12/01/18 16:34 Blood Blood Culture - Final 12/05/18 11:20 Abdominal Fluid Gram Stain - Final 12/05/18 11:20 Abdominal Fluid Body Fluid Culture - Final 11/29/18 23:42 Appendix Gram Stain - Final 11/29/18 23:42 Appendix Gram Stain - Final 11/29/18 23:42 Appendix Anaerobic Culture - Final 11/29/18 23:42 Abdominal Fluid Gram Stain - Final 11/29/18 23:42 Abdominal Fluid Body Fluid Culture - Final 11/29/18 19:30 Urine - Clean Void Mid-Stream Urine Culture - Final 11/30/18 00:04 Nose MRSA (PCR) - Final Medications Active Medications: Acyclovir (Zovirax) 200 mg PO 5XD [facility] Last Admin: 12/09/18 13:33 Dose: 200 mg Documented by: Admin: 12/09/18 12:24 Dose: 200 mg Documented by: Admin: 12/09/18 08:01 Dose: 200 mg Documented by: Admin: 12/08/18 20:17 Dose: 200 mg Documented by: [email or web address] Admin: 12/08/18 17:28 Dose: 200 mg Documented by: Admin: 12/08/18 14:48 Dose: 200 mg Documented by: Admin: 12/08/18 12:21 Dose: 200 mg Documented by: Admin: 12/08/18 08:48 Dose: 200 mg Documented by: Admin: 12/07/18 20:39 Dose: 200 mg Documented by: [email or web address] Admin: 12/07/18 17:33 Dose: 200 mg Documented by: [email or web address] Admin: 12/07/18 14:15 Dose: 200 mg Documented by: MLDes Admin: 12/07/18 11:44 Dose: 200 mg Documented by: [email or web address] Celecoxib (Celebrex) 200 mg PO DAILY [facility] Last Admin: 12/09/18 08:26 Dose: 200 mg Documented by: Admin: 12/08/18 12:11 Dose: 200 mg Documented by: ABEL Diphenhydramine HCl (Benadryl) 25 mg IV Q6HP PRN PRN Reason: Itching Docusate Sodium (Colace) 100 mg PO BID [facility] Last Admin: 12/09/18 08:26 Dose: 100 mg Documented by: Admin: 12/08/18 20:18 Dose: 100 mg Documented by: Admin: 12/08/18 08:49 Dose: 100 mg Documented by: Admin: 12/07/18 20:39 Dose: 100 mg Documented by: Admin: 12/07/18 08:58 Dose: 100 mg Documented by: MARIA INES Admin: 12/06/18 20:58 Dose: 100 mg Documented by: Admin: 12/06/18 08:44 Dose: 100 mg Documented by: MARIA INES Admin: 12/05/18 21:28 Dose: 100 mg Documented by: JACQUIE Enoxaparin Sodium (Lovenox) 40 mg SQ DAILY [facility] Last Admin: 12/09/18 08:25 Dose: 40 mg Documented by: Admin: 12/08/18 08:49 Dose: 40 mg Documented by: Admin: 12/07/18 08:59 Dose: 40 mg Documented by: MARIA INES Admin: 12/06/18 08:45 Dose: 40 mg Documented by: MARIA INES Famotidine (Pepcid) 20 mg IV Q12 [facility] Last Admin: 12/09/18 08:26 Dose: 20 mg Documented by: Admin: 12/08/18 20:18 Dose: 20 mg Documented by: Admin: 12/08/18 08:49 Dose: 20 mg Documented by: Admin: 12/07/18 20:39 Dose: 20 mg Documented by: Admin: 12/07/18 08:59 Dose: 20 mg Documented by: MARIA INES Admin: 12/06/18 20:58 Dose: 20 mg Documented by: Admin: 12/06/18 08:44 Dose: 20 mg Documented by: MARIA INES Admin: 12/05/18 21:28 Dose: 20 mg Documented by: JACQUIE Flumazenil (Romazicon) 0.2 mg IV Q1MIN PRN PRN Reason: BENZODIAZEPINE REVERSAL Hydromorphone HCl (Dilaudid Sales Trainee) 30 mg IV UD PRN; Protocol PRN Reason: Pain Last Admin: 12/08/18 08:57 Dose: 30 mg Documented by: ABEL Potassium Chloride/Dextrose/Sod Cl (Dextrose 5%-1/2ns W/20meq Kcl) 1,000 mls @ 75 mls/hr IV .[id number] [facility] Last Admin: 12/09/18 03:23 Dose: 75 mls/hr Documented by: Infusion: 12/09/18 03:23 Dose: 75 mls/hr Documented by: Admin: 12/08/18 14:49 Dose: 75 mls/hr Documented by: Infusion: 12/08/18 14:49 Dose: 75 mls/hr Documented by: Admin: 12/08/18 03:05 Dose: 75 mls/hr Documented by: Infusion: 12/08/18 01:02 Dose: 75 mls/hr Documented by: Admin: 12/07/18 11:42 Dose: 75 mls/hr Documented by: MARIA INES Infusion: 12/07/18 11:42 Dose: 75 mls/hr Documented by: MARIA INES Admin: 12/06/18 22:49 Dose: 75 mls/hr Documented by: Infusion: 12/06/18 21:27 Dose: 75 mls/hr Documented by: Admin: 12/06/18 08:07 Dose: 75 mls/hr Documented by: MARIA INES Infusion: 12/06/18 08:07 Dose: 75 mls/hr Documented by: MARIA INES Admin: 12/05/18 18:58 Dose: 75 mls/hr Documented by: ABEL Sodium Chloride (Sodium Chloride 0.9%) 250 mls @ 20 mls/hr IV .[id number] [facility] Last Admin: 12/09/18 14:00 Dose: Not Given Documented by: SHILOH Non-Admin Reason: No Coverage Needed Admin: 12/08/18 22:58 Dose: Not Given Documented by: ROSE Non-Admin Reason: not needed Admin: 12/08/18 14:49 Dose: Not Given Documented by: ABEL Non-Admin Reason: Clinical Judgement Admin: 12/07/18 20:52 Dose: Not Given Documented by: JACQUIE Non-Admin Reason: Not needed Admin: 12/07/18 08:08 Dose: Not Given Documented by: MARIA INES Non-Admin Reason: Bag Still Infusing Admin: 12/06/18 19:51 Dose: Not Given Documented by: CARIE Non-Admin Reason: Not needed Admin: 12/06/18 10:28 Dose: Not Given Documented by: MARIA INES Non-Admin Reason: Bag Still Infusing Admin: 12/05/18 19:20 Dose: Not Given Documented by: [email or web address] Non-Admin Reason: Not needed Acetaminophen (Ofirmev) 650 mg in 65 mls @ 130 mls/hr IV Q6HP PRN PRN Reason: PAIN/FEVER > 101 Last Admin: 12/09/18 13:29 Dose: 130 mls/hr Documented by: Infusion: 12/09/18 08:13 Dose: 0 mls/hr Documented by: Admin: 12/09/18 07:33 Dose: 130 mls/hr Documented by: Infusion: 12/08/18 22:00 Dose: 0 mls/hr Documented by: Admin: 12/08/18 21:19 Dose: 130 mls/hr Documented by: Infusion: 12/07/18 23:14 Dose: 130 mls/hr Documented by: Infusion: 12/07/18 22:44 Dose: 130 mls/hr Documented by: Admin: 12/07/18 22:43 Dose: 100 mls/hr Documented by: Infusion: 12/07/18 17:00 Dose: 0 mls/hr Documented by: MARIA INES Admin: 12/07/18 16:13 Dose: 100 mls/hr Documented by: [email or web address] Infusion: 12/07/18 16:13 Dose: 0 mls/hr Documented by: [email or web address] Infusion: 12/07/18 08:08 Dose: 0 mls/hr Documented by: MARIA INES Admin: 12/07/18 07:40 Dose: 130 mls/hr Documented by: [email or web address] Infusion: 12/06/18 22:45 Dose: 130 mls/hr Documented by: Admin: 12/06/18 22:15 Dose: 130 mls/hr Documented by: Infusion: 12/06/18 13:52 Dose: 0 mls/hr Documented by: [email or web address] Admin: 12/06/18 13:00 Dose: 130 mls/hr Documented by: [email or web address] Piperacillin Sod/Tazobactam (Sod 3.375 gm/ Dextrose) 50 mls @ 100 mls/hr IV Q6H [facility] Last Admin: 12/09/18 12:24 Dose: 100 mls/hr Documented by: Infusion: 12/09/18 06:14 Dose: 100 mls/hr Documented by: Admin: 12/09/18 05:44 Dose: 100 mls/hr Documented by: Infusion: 12/09/18 00:40 Dose: 100 mls/hr Documented by: Admin: 12/09/18 00:10 Dose: 100 mls/hr Documented by: Infusion: 12/08/18 18:05 Dose: 100 mls/hr Documented by: Admin: 12/08/18 17:35 Dose: 100 mls/hr Documented by: Infusion: 12/08/18 12:41 Dose: 100 mls/hr Documented by: Admin: 12/08/18 12:11 Dose: 100 mls/hr Documented by: Infusion: 12/08/18 06:58 Dose: 100 mls/hr Documented by: Admin: 12/08/18 05:34 Dose: 100 mls/hr Documented by: Infusion: 12/08/18 03:08 Dose: 0 mls/hr Documented by: Admin: 12/08/18 00:32 Dose: 100 mls/hr Documented by: Infusion: 12/07/18 20:53 Dose: 0 mls/hr Documented by: Admin: 12/07/18 17:33 Dose: 100 mls/hr Documented by: MARIA INES Infusion: 12/07/18 13:45 Dose: 0 mls/hr Documented by: MARIA INES Admin: 12/07/18 13:13 Dose: 100 mls/hr Documented by: MARIA INES Iron Carb/Multivit/[place]/Folic Acid (Multivitamin W/Minerals) 1 tab PO DAILY [facility] Last Admin: 12/09/18 08:26 Dose: 1 tab Documented by: Admin: 12/08/18 09:03 Dose: 1 tab Documented by: Admin: 12/07/18 08:58 Dose: 1 tab Documented by: MARIA INES Admin: 12/06/18 08:45 Dose: 1 tab Documented by: MARIA INES Lorazepam (Ativan) 0.5 mg PO Q12HP PRN PRN Reason: ANXIETY/SEDATION Last Admin: 12/09/18 12:39 Dose: 0.5 mg Documented by: SHILOH Magnesium Hydroxide (Milk Of Magnesia) 30 ml PO DAILY [facility] Last Admin: 12/09/18 08:25 Dose: 30 ml Documented by: Admin: 12/08/18 09:00 Dose: 30 ml Documented by: Admin: 12/07/18 08:59 Dose: 30 ml Documented by: MARIA INES Admin: 12/06/18 08:44 Dose: 30 ml Documented by: MARIA INES Metoclopramide HCl (Reglan) 5 mg PO Q6H [facility] Last Admin: 12/09/18 12:48 Dose: 5 mg Documented by: Admin: 12/09/18 05:44 Dose: 5 mg Documented by: Admin: 12/09/18 00:10 Dose: 5 mg Documented by: Admin: 12/08/18 17:38 Dose: 5 mg Documented by: Admin: 12/08/18 12:10 Dose: 5 mg Documented by: Admin: 12/08/18 05:34 Dose: 5 mg Documented by: Admin: 12/08/18 00:32 Dose: 5 mg Documented by: Admin: 12/07/18 17:37 Dose: 5 mg Documented by: MARIA INES Admin: 12/07/18 11:44 Dose: 5 mg Documented by: MARIA INES Admin: 12/07/18 06:24 Dose: 5 mg Documented by: Admin: 12/07/18 00:17 Dose: 5 mg Documented by: Admin: 12/06/18 18:20 Dose: 5 mg Documented by: MARIA INES Admin: 12/06/18 12:53 Dose: 5 mg Documented by: MARIA INES Admin: 12/06/18 05:48 Dose: 5 mg Documented by: Admin: 12/06/18 00:26 Dose: 5 mg Documented by: JACQUIE Naloxone HCl (Narcan) 0.1 mg IV Q2MIN PRN PRN Reason: Opiate Reversal Nystatin (Nystatin) 500,000 units SSW QID [facility] Last Admin: 12/09/18 13:29 Dose: 500,000 units Documented by: Admin: 12/09/18 08:25 Dose: 500,000 units Documented by: Admin: 12/08/18 20:17 Dose: 500,000 units Documented by: Admin: 12/08/18 17:28 Dose: 500,000 units Documented by: Admin: 12/08/18 12:22 Dose: 500,000 units Documented by: Admin: 12/08/18 09:01 Dose: 500,000 units Documented by: Admin: 12/07/18 20:39 Dose: 500,000 units Documented by: Admin: 12/07/18 15:42 Dose: 500,000 units Documented by: MARIA INES Ondansetron HCl (Zofran Odt) 4 mg SL Q4-6HP PRN PRN Reason: Nausea And Vomiting Last Admin: 12/09/18 08:25 Dose: 4 mg Documented by: Admin: 12/08/18 14:48 Dose: 4 mg Documented by: Admin: 12/08/18 03:05 Dose: 4 mg Documented by: Admin: 12/07/18 08:58 Dose: 4 mg Documented by: MARIA INES Admin: 12/06/18 10:25 Dose: 4 mg Documented by: MARIA INES Admin: 12/05/18 19:19 Dose: 4 mg Documented by: ABEL Polyethylene Glycol (Miralax) 17 gm PO DAILY [facility] Last Admin: 12/09/18 08:26 Dose: 17 gm Documented by: Admin: 12/08/18 12:12 Dose: 17 gm Documented by: Admin: 12/07/18 08:59 Dose: 17 gm Documented by: MARIA INES Admin: 12/06/18 11:12 Dose: 17 gm Documented by: MARIA INES Sodium Chloride (Saline Flush) 10 ml IV Q8 [facility] Last Admin: 12/09/18 05:45 Dose: Not Given Documented by: ROSE Non-Admin Reason: Continuous IV Admin: 12/08/18 22:58 Dose: Not Given Documented by: [email or web address] Non-Admin Reason: Continuous IV Admin: 12/08/18 14:48 Dose: Not Given Documented by: [email or web address] Non-Admin Reason: Continuous IV Admin: 12/08/18 05:34 Dose: Not Given Documented by: JACQUIE Non-Admin Reason: Bag Still Infusing Admin: 12/07/18 20:43 Dose: 10 ml Documented by: Admin: 12/07/18 13:13 Dose: 10 ml Documented by: MARIA INES Admin: 12/07/18 06:25 Dose: 10 ml Documented by: Admin: 12/06/18 22:00 Dose: 10 ml Documented by: Admin: 12/06/18 12:55 Dose: 10 ml Documented by: MARIA INES Admin: 12/06/18 05:48 Dose: 10 ml Documented by: Admin: 12/05/18 21:28 Dose: 10 ml Documented by: JACQUIE Assessment and Plan - Narrative A/P Narrative: Assessment: 1. Acute perforated appendicitis with peritonitis with subsequent development of subcutaneous abscess [status post I&D on 12-05-18]: Scheduled for exploration under anesthesia of the surgical incision today -Status post 4 days of IV vancomycin and 10 days of IV Zosyn Negative C. difficile - blood Cx no growth till date - wound cultures on the anaerobic plate growing Hemophillus and anerobic GPR, and Bacteroides fragillis 2. No concerns for sepsis at this point 3. Elevated liver enzymes: Initially all liver enzymes are high but trended down and currently only ALT elevated at 59 Zosyn typically does not cause elevated liver enzymes, reported is a very rare side effect Persistence of ALT elevation warrants further investigation Recommendations: Stop Zosyn to 3.375 g IV every 6 hours Nystatin swish and swallow for oral thrush, day 3 out of 7 start oral Cipro 500 mg twice daily and metronidazole 500 mg p.o. every 8 hours Will decide duration based on further clinical course Reginaldo Calvert MD Infectious disease
--- NOTE | 2018-12-09 18:03 | General Surgery Progress Note ---
Subjective Patient reports: feels better, pain is less, flatus, bowel movement, afebrile Narrative: Note initiated : 12/09/18 at 6:02 pm Service Date, if different from initiated Date: [] Patient: Naomi Corrales 27 y/o F admitted on 11/29/18 for right lower abd pain. Chief Complaint: [patient is doing well and is clinically stable. She will hopefully have debridement of her wound and placement of wound VAC Tomorrow.] Objective Temp Pulse Resp BP Pulse Ox 98.4 F 98 H 16 114/69 95 12/09/18 16:00 12/09/18 16:00 12/09/18 16:00 12/09/18 16:00 12/09/18 16:00 - Additional Data Intake & Output - Last 24 hours: Intake & Output 12/07/18 12/08/18 12/09/18 12/10/18 05:59 05:59 05:59 05:59 Intake Total 4125 / 4365 2852 / 2852 2768 / 2768 1950 / 1950 Output Total 4500 / 4500 4965 / 4965 2779 / 2779 400 / 400 Balance -375 / -135 -2113 / -2113 -11 / -11 1550 / 1550 Weight 167 lb 160 lb 155 lb 5 oz - Labs 12/08/18 08:34 12/08/18 08:34 Assessment and Plan (1) Acute appendicitis with perforation, localized peritonitis, and abscess Status: Acute Assessment and plan: Continue present therapy with plans for wound VAC placement on Thursday Current Visit: Yes (2) Post-operative infection Status: Acute Assessment and plan: Clinically improved with clean wound base. Current Visit: Yes - Time Spent With Patient Total time spent is greater than 50% in coordination of care (as documented) at patient's floor/unit and/or counseling patient:
[2018-12-09] MEDS: CIPROFLOXACIN 500 MG TABLET PO SCH (20:44)
[2018-12-09] MEDS: metroNIDAZOLE 500 MG TABLET PO SCH (21:09)
[2018-12-10] MEDS: METOCLOPRAMIDE 10 MG TABLET PO SCH ×5 (00:05→23:28)
[2018-12-10] MEDS: 0.9 % SODIUM CHLORIDE 250 ML IV SCH ×2 (00:06→13:24)
[2018-12-10] MEDS: 0.9 % SODIUM CHLORIDE 10 ML SYRINGE IV SCH ×3 (05:06→20:12)
[2018-12-10] MEDS: metroNIDAZOLE 500 MG TABLET PO SCH ×3 (05:06→23:29)
--- NOTE | 2018-12-10 09:01 | Infectious Disease Prog Note ---
Subjective Patient information: Note initiated : 12/10/18 at 8:45 am Service Date, if different from initiated Date: [] Patient: Naomi Corrales 27 y/o F admitted on 11/29/18 for right lower abd pain. Chief Complaint: [] Interval history: Patient doing better. Denies any fever, chills, nausea, vomiting. Endorses some liquid bowel movements, not worse that after starting oral antibiotics yesterday. Is able to take pills without any problems. Is n.p.o. for her wound exploration and wound VAC placement today. Objective Objective Narrative: Alert, oriented x3 No thrush Chest clear to auscultation except for an area in the posterior lung base with decreased breath sounds S1-S2 normal Bowel sounds present, tender to touch in the right side of the abdominal No edema - Vital Signs Vital signs: Vital Signs Temp Pulse Resp BP BP Pulse Ox 12/10/18 05:00 36.6 C 93 H 16 107/68 96 12/10/18 00:00 36.6 C 83 16 107/70 96 12/09/18 21:00 37.4 C H 108 H 16 108/71 95 12/09/18 16:00 36.9 C 98 H 16 114/69 95 12/09/18 12:00 37.2 C 18 103/64 97 Intake and Output 12/09/18 12/10/18 12/10/18 21:59 05:59 13:59 Intake Total 1305 / 2202 252 / 2202 Output Total 400 / 803 403 / 803 500 / 500 Balance 905 / 1399 -151 / 1399 -500 / -500 Intake: IV 1065 / 1230 Dextrose 5%-1/2Ns W/20Meq KCl 1 1000 / 1000 ,000 ml @ 75 mls/hr IV .[id number] [facility] Rx#:[id number] Oral 240 / 970 250 / 970 Input, Drain Irrigation Amount 2 / 2 B 2 / 2 Output: Drainage 3 / 3 A 3 / 3 Void Amount 400 / 800 400 / 800 500 / 500 # of times incontinent of urine 0 / 0 Other: Meal Dinner Percent of Meal Consumed 50% Urine Appearance Clear Clear Urine Color Bright Yellow Bright Yellow Urine Odor Normal Normal Stool Size Smear Stool Consistency Loose # Voids 1 4 1 # Bowel Movements 2 Weight 71.214 kg Intake & Output: Intake & Output 12/09/18 12/10/18 12/10/18 21:59 05:59 13:59 Intake Total 1305 / 2202 252 / 2202 Output Total 400 / 803 403 / 803 500 / 500 Balance 905 / 1399 -151 / 1399 -500 / -500 Weight 71.214 kg Intake: IV 1065 / 1230 Dextrose 5%-1/2Ns W/20Meq KCl 1 1000 / 1000 ,000 ml @ 75 mls/hr IV .[id number] [facility] Rx#:[id number] Oral 240 / 970 250 / 970 Input, Drain Irrigation Amount 2 / 2 B 2 / 2 Output: Drainage 3 / 3 A 3 / 3 Void Amount 400 / 800 400 / 800 500 / 500 # of times incontinent of urine 0 / 0 Other: Meal Dinner Percent of Meal Consumed 50% Urine Appearance Clear Clear Urine Color Bright Yellow Bright Yellow Urine Odor Normal Normal Stool Size Smear Stool Consistency Loose # Voids 1 4 1 # Bowel Movements 2 - Lab 12/08/18 08:34 12/08/18 08:34 Most recent lab results Calcium 9.6 mg/dl (8.6-10.4) 12/08/18 08:34 Phosphorus 5.2 mg/dL (2.7-4.5) H 12/08/18 08:34 Magnesium 2.1 mg/dL (1.6-2.5) 12/08/18 08:34 Microbiology 12/05/18 11:58 Wound - Deep Gram Stain - Final 12/05/18 11:58 Wound - Deep Anaerobic Culture - Final 12/05/18 11:58 Abdomen - Middle Gram Stain - Final 12/05/18 11:58 Abdomen - Middle Anaerobic Culture - Preliminary Bacteroides fragilis 12/05/18 11:58 Wound - Deep Gram Stain - Final 12/05/18 11:58 Wound - Deep Wound Culture - Final Haemophilus species Anaerobic gram positive rods 12/03/18 11:15 Blood Blood Culture - Final 12/03/18 10:51 Blood Blood Culture - Final 12/05/18 11:14 Abdomen - Middle Gram Stain - Final 12/05/18 11:14 Abdomen - Middle Wound Culture - Final 12/01/18 16:38 Blood Blood Culture - Final 12/01/18 16:34 Blood Blood Culture - Final 12/05/18 11:20 Abdominal Fluid Gram Stain - Final 12/05/18 11:20 Abdominal Fluid Body Fluid Culture - Final 11/29/18 23:42 Appendix Gram Stain - Final 11/29/18 23:42 Appendix Gram Stain - Final 11/29/18 23:42 Appendix Anaerobic Culture - Final 11/29/18 23:42 Abdominal Fluid Gram Stain - Final 11/29/18 23:42 Abdominal Fluid Body Fluid Culture - Final 11/29/18 19:30 Urine - Clean Void Mid-Stream Urine Culture - Final 11/30/18 00:04 Nose MRSA (PCR) - Final Medications Active Medications: Acyclovir (Zovirax) 200 mg PO 5XD [facility] Last Admin: 12/09/18 20:44 Dose: 200 mg Documented by: Admin: 12/09/18 16:28 Dose: 200 mg Documented by: Admin: 12/09/18 13:33 Dose: 200 mg Documented by: Admin: 12/09/18 12:24 Dose: 200 mg Documented by: Admin: 12/09/18 08:01 Dose: 200 mg Documented by: Admin: 12/08/18 20:17 Dose: 200 mg Documented by: Admin: 12/08/18 17:28 Dose: 200 mg Documented by: Admin: 12/08/18 14:48 Dose: 200 mg Documented by: Admin: 12/08/18 12:21 Dose: 200 mg Documented by: Admin: 12/08/18 08:48 Dose: 200 mg Documented by: Admin: 12/07/18 20:39 Dose: 200 mg Documented by: Admin: 12/07/18 17:33 Dose: 200 mg Documented by: MARIA INES Admin: 12/07/18 14:15 Dose: 200 mg Documented by: MARIA INES Admin: 12/07/18 11:44 Dose: 200 mg Documented by: MARIA INES Celecoxib (Celebrex) 200 mg PO DAILY [facility] Last Admin: 12/09/18 08:26 Dose: 200 mg Documented by: Admin: 12/08/18 12:11 Dose: 200 mg Documented by: ABEL Ciprofloxacin (Cipro) 500 mg PO BID [facility] Last Admin: 12/09/18 20:44 Dose: 500 mg Documented by: [email or web address] Diphenhydramine HCl (Benadryl) 25 mg IV Q6HP PRN PRN Reason: Itching Docusate Sodium (Colace) 100 mg PO BID [facility] Admin: 12/09/18 20:44 Dose: 100 mg Documented by: Admin: 12/09/18 08:26 Dose: 100 mg Documented by: Admin: 12/08/18 20:18 Dose: 100 mg Documented by: Admin: 12/08/18 08:49 Dose: 100 mg Documented by: Admin: 12/07/18 20:39 Dose: 100 mg Documented by: Admin: 12/07/18 08:58 Dose: 100 mg Documented by: MARIA INES Admin: 12/06/18 20:58 Dose: 100 mg Documented by: Admin: 12/06/18 08:44 Dose: 100 mg Documented by: MARIA INES Admin: 12/05/18 21:28 Dose: 100 mg Documented by: JACQUIE Enoxaparin Sodium (Lovenox) 40 mg SQ DAILY [facility] Admin: 12/09/18 08:25 Dose: 40 mg Documented by: Admin: 12/08/18 08:49 Dose: 40 mg Documented by: Admin: 12/07/18 08:59 Dose: 40 mg Documented by: MARIA INES Admin: 12/06/18 08:45 Dose: 40 mg Documented by: MARIA INES Famotidine (Pepcid) 20 mg IV Q12 [facility] Admin: 12/09/18 20:45 Dose: 20 mg Documented by: Admin: 12/09/18 08:26 Dose: 20 mg Documented by: Admin: 12/08/18 20:18 Dose: 20 mg Documented by: Admin: 12/08/18 08:49 Dose: 20 mg Documented by: Admin: 12/07/18 20:39 Dose: 20 mg Documented by: Admin: 12/07/18 08:59 Dose: 20 mg Documented by: MARIA INES Admin: 12/06/18 20:58 Dose: 20 mg Documented by: Admin: 12/06/18 08:44 Dose: 20 mg Documented by: MARIA INES Admin: 12/05/18 21:28 Dose: 20 mg Documented by: JACQUIE Flumazenil (Romazicon) 0.2 mg IV Q1MIN PRN PRN Reason: BENZODIAZEPINE REVERSAL Hydromorphone HCl (Dilaudid Database Administration Associate) 30 mg IV UD PRN; Protocol PRN Reason: Pain Last Admin: 12/08/18 08:57 Dose: 30 mg Documented by: ABEL Potassium Chloride/Dextrose/Sod Cl (Dextrose 5%-1/2ns W/20meq Kcl) 1,000 mls @ 75 mls/hr IV .[id number] [facility] Last Admin: 12/09/18 17:55 Dose: 75 mls/hr Documented by: Infusion: 12/09/18 17:53 Dose: 0 mls/hr Documented by: Admin: 12/09/18 16:39 Dose: Not Given Documented by: SHILOH Non-Admin Reason: Bag Still Infusing Admin: 12/09/18 03:23 Dose: 75 mls/hr Documented by: Infusion: 12/09/18 03:23 Dose: 75 mls/hr Documented by: Admin: 12/08/18 14:49 Dose: 75 mls/hr Documented by: Infusion: 12/08/18 14:49 Dose: 75 mls/hr Documented by: Admin: 12/08/18 03:05 Dose: 75 mls/hr Documented by: Infusion: 12/08/18 01:02 Dose: 75 mls/hr Documented by: Admin: 12/07/18 11:42 Dose: 75 mls/hr Documented by: MARIA INES Infusion: 12/07/18 11:42 Dose: 75 mls/hr Documented by: MARIA INES Admin: 12/06/18 22:49 Dose: 75 mls/hr Documented by: Infusion: 12/06/18 21:27 Dose: 75 mls/hr Documented by: Admin: 12/06/18 08:07 Dose: 75 mls/hr Documented by: MARIA INES Infusion: 12/06/18 08:07 Dose: 75 mls/hr Documented by: MARIA INES Admin: 12/05/18 18:58 Dose: 75 mls/hr Documented by: ABEL Sodium Chloride (Sodium Chloride 0.9%) 250 mls @ 20 mls/hr IV .[id number] [facility] Last Admin: 12/10/18 00:06 Dose: Not Given Documented by: ROSE Non-Admin Reason: not needed Admin: 12/09/18 14:00 Dose: Not Given Documented by: SHILOH Non-Admin Reason: No Coverage Needed Admin: 12/08/18 22:58 Dose: Not Given Documented by: ROSE Non-Admin Reason: not needed Admin: 12/08/18 14:49 Dose: Not Given Documented by: [email or web address] Non-Admin Reason: Clinical Judgement Admin: 12/07/18 20:52 Dose: Not Given Documented by: JACQUIE Non-Admin Reason: Not needed Admin: 12/07/18 08:08 Dose: Not Given Documented by: [email or web address] Non-Admin Reason: Bag Still Infusing Admin: 12/06/18 19:51 Dose: Not Given Documented by: CARIE Non-Admin Reason: Not needed Admin: 12/06/18 10:28 Dose: Not Given Documented by: [email or web address] Non-Admin Reason: Bag Still Infusing Admin: 12/05/18 19:20 Dose: Not Given Documented by: ABEL Non-Admin Reason: Not needed Acetaminophen (Ofirmev) 650 mg in 65 mls @ 130 mls/hr IV Q6HP PRN PRN Reason: PAIN/FEVER > 101 Last Admin: 12/09/18 21:09 Dose: 130 mls/hr Documented by: Infusion: 12/09/18 14:00 Dose: 0 mls/hr Documented by: Admin: 12/09/18 13:29 Dose: 130 mls/hr Documented by: Infusion: 12/09/18 08:13 Dose: 0 mls/hr Documented by: Admin: 12/09/18 07:33 Dose: 130 mls/hr Documented by: Infusion: 12/08/18 22:00 Dose: 0 mls/hr Documented by: Admin: 12/08/18 21:19 Dose: 130 mls/hr Documented by: Infusion: 12/07/18 23:14 Dose: 130 mls/hr Documented by: Infusion: 12/07/18 22:44 Dose: 130 mls/hr Documented by: Admin: 12/07/18 22:43 Dose: 100 mls/hr Documented by: Infusion: 12/07/18 17:00 Dose: 0 mls/hr Documented by: MARIA INES Admin: 12/07/18 16:13 Dose: 100 mls/hr Documented by: MARIA INES Infusion: 12/07/18 16:13 Dose: 0 mls/hr Documented by: MARIA INES Infusion: 12/07/18 08:08 Dose: 0 mls/hr Documented by: MARIA INES Admin: 12/07/18 07:40 Dose: 130 mls/hr Documented by: [email or web address] Infusion: 12/06/18 22:45 Dose: 130 mls/hr Documented by: Admin: 12/06/18 22:15 Dose: 130 mls/hr Documented by: Infusion: 12/06/18 13:52 Dose: 0 mls/hr Documented by: MARIA INES Admin: 12/06/18 13:00 Dose: 130 mls/hr Documented by: MARIA INES Iron Carb/Multivit/Puppy Walker/Folic Acid (Multivitamin W/Minerals) 1 tab PO DAILY [facility] Last Admin: 12/09/18 08:26 Dose: 1 tab Documented by: Admin: 12/08/18 09:03 Dose: 1 tab Documented by: Admin: 12/07/18 08:58 Dose: 1 tab Documented by: MARIA INES Admin: 12/06/18 08:45 Dose: 1 tab Documented by: MARIA INES Lorazepam (Ativan) 0.5 mg PO Q12HP PRN PRN Reason: ANXIETY/SEDATION Last Admin: 12/09/18 12:39 Dose: 0.5 mg Documented by: SHILOH Magnesium Hydroxide (Milk Of Magnesia) 30 ml PO DAILY [facility] Last Admin: 12/09/18 08:25 Dose: 30 ml Documented by: Admin: 12/08/18 09:00 Dose: 30 ml Documented by: Admin: 12/07/18 08:59 Dose: 30 ml Documented by: MARIA INES Admin: 12/06/18 08:44 Dose: 30 ml Documented by: MARIA INES Metoclopramide HCl (Reglan) 5 mg PO Q6H [facility] Last Admin: 12/10/18 05:06 Dose: 5 mg Documented by: Admin: 12/10/18 00:05 Dose: 5 mg Documented by: Admin: 12/09/18 17:51 Dose: 5 mg Documented by: Admin: 12/09/18 12:48 Dose: 5 mg Documented by: Admin: 12/09/18 05:44 Dose: 5 mg Documented by: Admin: 12/09/18 00:10 Dose: 5 mg Documented by: Admin: 12/08/18 17:38 Dose: 5 mg Documented by: Admin: 12/08/18 12:10 Dose: 5 mg Documented by: Admin: 12/08/18 05:34 Dose: 5 mg Documented by: Admin: 12/08/18 00:32 Dose: 5 mg Documented by: Admin: 12/07/18 17:37 Dose: 5 mg Documented by: MARIA INES Admin: 12/07/18 11:44 Dose: 5 mg Documented by: MARIA INES Admin: 12/07/18 06:24 Dose: 5 mg Documented by: Admin: 12/07/18 00:17 Dose: 5 mg Documented by: Admin: 12/06/18 18:20 Dose: 5 mg Documented by: MARIA INES Admin: 12/06/18 12:53 Dose: 5 mg Documented by: MARIA INES Admin: 12/06/18 05:48 Dose: 5 mg Documented by: Admin: 12/06/18 00:26 Dose: 5 mg Documented by: JACQUIE Metronidazole (Flagyl) 500 mg PO Q8H [facility] Last Admin: 12/10/18 05:06 Dose: 500 mg Documented by: Admin: 12/09/18 21:09 Dose: 500 mg Documented by: ROSE Naloxone HCl (Narcan) 0.1 mg IV Q2MIN PRN PRN Reason: Opiate Reversal Nystatin (Nystatin) 500,000 units SSW QID [facility] Last Admin: 12/09/18 20:44 Dose: 500,000 units Documented by: Admin: 12/09/18 16:28 Dose: 500,000 units Documented by: Admin: 12/09/18 13:29 Dose: 500,000 units Documented by: Admin: 12/09/18 08:25 Dose: 500,000 units Documented by: Admin: 12/08/18 20:17 Dose: 500,000 units Documented by: Admin: 12/08/18 17:28 Dose: 500,000 units Documented by: Admin: 12/08/18 12:22 Dose: 500,000 units Documented by: Admin: 12/08/18 09:01 Dose: 500,000 units Documented by: Admin: 12/07/18 20:39 Dose: 500,000 units Documented by: Admin: 12/07/18 15:42 Dose: 500,000 units Documented by: MARIA INES Ondansetron HCl (Zofran Odt) 4 mg SL Q4-6HP PRN PRN Reason: Nausea And Vomiting Last Admin: 12/09/18 08:25 Dose: 4 mg Documented by: Admin: 12/08/18 14:48 Dose: 4 mg Documented by: Admin: 12/08/18 03:05 Dose: 4 mg Documented by: Admin: 12/07/18 08:58 Dose: 4 mg Documented by: MARIA INES Admin: 12/06/18 10:25 Dose: 4 mg Documented by: MARIA INES Admin: 12/05/18 19:19 Dose: 4 mg Documented by: ABEL Polyethylene Glycol (Miralax) 17 gm PO DAILY [facility] Last Admin: 12/09/18 08:26 Dose: 17 gm Documented by: Admin: 12/08/18 12:12 Dose: 17 gm Documented by: Admin: 12/07/18 08:59 Dose: 17 gm Documented by: MARIA INES Admin: 12/06/18 11:12 Dose: 17 gm Documented by: MARIA INES Sodium Chloride (Saline Flush) 10 ml IV Q8 [facility] Last Admin: 12/10/18 05:06 Dose: Not Given Documented by: ROSE Non-Admin Reason: Continuous IV Admin: 12/09/18 20:55 Dose: Not Given Documented by: ROSE Non-Admin Reason: Continuous IV Admin: 12/09/18 14:12 Dose: Not Given Documented by: SHILOH Non-Admin Reason: Bag Still Infusing Admin: 12/09/18 05:45 Dose: Not Given Documented by: ROSE Non-Admin Reason: Continuous IV Admin: 12/08/18 22:58 Dose: Not Given Documented by: ROSE Non-Admin Reason: Continuous IV Admin: 12/08/18 14:48 Dose: Not Given Documented by: [email or web address] Non-Admin Reason: Continuous IV Admin: 12/08/18 05:34 Dose: Not Given Documented by: JACQUIE Non-Admin Reason: Bag Still Infusing Admin: 12/07/18 20:43 Dose: 10 ml Documented by: Admin: 12/07/18 13:13 Dose: 10 ml Documented by: MARIA INES Admin: 12/07/18 06:25 Dose: 10 ml Documented by: Admin: 12/06/18 22:00 Dose: 10 ml Documented by: Admin: 12/06/18 12:55 Dose: 10 ml Documented by: MARIA INES Admin: 12/06/18 05:48 Dose: 10 ml Documented by: Admin: 12/05/18 21:28 Dose: 10 ml Documented by: JACQUIE Assessment and Plan - Narrative A/P Narrative: Assessment: 1. Acute perforated appendicitis with peritonitis with subsequent development of subcutaneous abscess [status post I&D on 12-05-18]: Scheduled for exploration under anesthesia of the surgical incision and wound VAC placement today -Status post 4 days of IV vancomycin and 10 days of IV Zosyn Negative C. difficile - blood Cx no growth till date - wound cultures on the anaerobic plate growing Hemophillus spp.,anerobic GPR, and Bacteroides fragillis 2. No concerns for sepsis at this point 3. Elevated liver enzymes: Initially all liver enzymes are high but trended down and currently only ALT elevated at 59 Zosyn typically does not cause elevated liver enzymes, reported is a very rare side effect Persistence of ALT elevation warrants further investigation Recommendations: Continue oral Cipro 500 mg twice daily and metronidazole 500 mg p.o. every 8 hours Nystatin swish and swallow for oral thrush, day 4 out of 7 Will decide duration of antibiotics based on today's surgery Reginaldo Calvert MD Infectious disease
[2018-12-10] MEDS: ONDANSETRON 4 MG ODT TABLET SL PRN ×3 (09:14→16:46)
[2018-12-10] MEDS: FAMOTIDINE/PF 20 MG/2 ML VIAL IV SCH ×2 (09:15→20:11)
[2018-12-10] MEDS: CELECOXIB 200 MG CAPSULE PO SCH (09:51)
[2018-12-10] MEDS: ACYCLOVIR 400 MG TABLET PO SCH ×5 (09:51→20:11)
[2018-12-10] MEDS: ENOXAPARIN 40 MG/0.4 ML SYRINGE SQ SCH (09:51)
[2018-12-10] MEDS: DOCUSATE SODIUM 100 MG CAPSULE PO SCH ×2 (09:51→20:11)
[2018-12-10] MEDS: CIPROFLOXACIN 500 MG TABLET PO SCH ×2 (09:51→20:11)
[2018-12-10] MEDS: NYSTATIN 500,000 UNITS/5 ML ORAL.SUSP SSW SCH ×4 (09:52→20:11)
[2018-12-10] MEDS: POLYETHYLENE GLYCOL 3350 17 GM PACKET PO SCH (09:52)
[2018-12-10] MEDS: MAGNESIUM HYDROXIDE 30 ML ORAL.SUSP PO SCH (09:52)
[2018-12-10] MEDS: MULTIVIT,THER IRON,CA,FA & MIN 1 TABLET PO SCH (09:52)
[2018-12-10] MEDS ORDERED: PIPERACILLIN SODIUM/TAZOBACTAM 3.375 GM in DEXTROSE 5% IN WATER 50 ML IV SCH (10:30)
[2018-12-10] MEDS ORDERED: LACTATED RINGERS 250 ML IV PRN (11:08)
[2018-12-10] MEDS ORDERED: ACETAMINOPHEN 1,000 MG/100 ML BOTTLE IV ONE (11:08)
[2018-12-10] MEDS ORDERED: HYDROmorphone 2 MG/ML VIAL IV PRN (11:08)
[2018-12-10] MEDS ORDERED: MEPERIDINE 25 MG/ML SYRINGE IV PRN (11:08)
[2018-12-10] MEDS ORDERED: fentaNYL 100 MCG/2 ML VIAL IV PRN (11:08)
[2018-12-10] MEDS ORDERED: diphenhydrAMINE 50 MG/ML VIAL IV PRN (11:08)
[2018-12-10] MEDS ORDERED: BENZOCAINE/MENTHOL 1 LOZENGE PO PRN (11:08)
[2018-12-10] MEDS ORDERED: FLUMAZENIL 0.1 MG/ML ML IV PRN (11:08)
[2018-12-10] MEDS ORDERED: NALOXONE HCL 0.4 MG/ML VIAL IV PRN (11:08)
[2018-12-10] MEDS ORDERED: METHOCARBAMOL 1,000 MG/10 ML VIAL IV PRN (11:08)
[2018-12-10] MEDS ORDERED: PROMETHAZINE 25 MG/ML VIAL IV PRN (11:08)
[2018-12-10] MEDS ORDERED: IPRATROPIUM/ALBUTEROL 3 ML AMPUL.NEB NEB PRN (11:08)
[2018-12-10] MEDS ORDERED: LACTATED RINGERS 1,000 ML IV SCH (11:15)
--- NOTE | 2018-12-10 11:22 | Brief Operative Note ---
Date of procedure: 12/10/18 Pre-op diagnosis: wound infection with fasciitis Post-op diagnosis: other (wound infection with fasciitis) Procedure: wound debridement with placement of wound vac system Grafts/Implants: No Anesthesia: GLMA Findings: extensive wound wit tunneling superiorly in subq by 8cm;tunneling subfascial by 9 cm tunneling inferiorly in subcu 4.5cm full thickness wound 8x6x2.5 cm mild granulations by 50% fascial necrosis in wound 30% Complications: none Surgeon: Carine Eid Estimated blood loss (cc): 35 Specimens Removed/Pathology: none sent Condition: stable Disposition: PACU
[2018-12-10] MEDS: DEXTROSE 5%-1/2NS W/20MEQ KCL 1,000 ML IV SCH (12:13)
[2018-12-10] MEDS: oxyCODONE/APAP 5/325MG TABLET PO PRN ×2 (17:32→20:20)
[2018-12-11] MEDS: oxyCODONE/APAP 5/325MG TABLET PO PRN ×5 (01:18→16:20)
[2018-12-11] MEDS: DEXTROSE 5%-1/2NS W/20MEQ KCL 1,000 ML IV SCH ×2 (01:20→13:06)
[2018-12-11] MEDS: 0.9 % SODIUM CHLORIDE 250 ML IV SCH ×2 (03:58→13:06)
[2018-12-11 05:43] LABS: Basophils # (Auto) 0 K/mcL (0.0-0.3); Basophils % (Auto) 0.4 % (0.0-2.0); Eosinophils # (Auto) 0.1 K/mcL (0.0-0.7); Eosinophils % (Auto) 0.8 % (0.0-7.0); Granulocytes % (Auto) 61.9 % (38.0-78.0); Lymphocytes # (Auto) 2.5 K/mcL (1.5-4.8); Lymphocytes % (Auto) 28.2 % (15.5-49.0); Mean Cell Volume 86.4 fL (80.0-100.0); Mean Corpuscular HGB Conc 33.5 g/dL (31.0-36.0); Monocytes # (Auto) 0.8 K/mcL (0.1-0.9); Monocytes % (Auto) 8.7 % (1.0-12.0); Platelet Count 977 K/mcL (140-440); RBC 3.28 M/mcL (4.00-5.20); Red Cell Distribution Width 12.6 % (11.5-14.5)
[2018-12-11 05:50] LABS: ALT/SGPT 44 U/l (0-40); Albumin 2.9 gm/dL (3.2-5.2); Albumin/Globulin Ratio 0.8 (1.0-2.3); Alkaline Phosphatase 82 U/L (39-117); Bilirubin,Direct < 0.2 mg/dL (0.0-0.3); Blood Urea Nitrogen 9 mg/dl (6-20); Gamma Glutamyl Transpeptidase 25 U/L (5-36); Uric Acid 3.1 mg/dL (2.5-8.0)
[2018-12-11] MEDS ORDERED: ASPIRIN 325 MG ENTERIC COATED TABLET PO ONE ×2 (05:50→05:54)
[2018-12-11] MEDS: METOCLOPRAMIDE 10 MG TABLET PO SCH ×2 (05:57→12:13)
[2018-12-11] MEDS: metroNIDAZOLE 500 MG TABLET PO SCH ×2 (05:58→13:32)
[2018-12-11] MEDS: 0.9 % SODIUM CHLORIDE 10 ML SYRINGE IV SCH ×2 (05:58→14:47)
[2018-12-11] MEDS: ACETAMINOPHEN 650 MG/65 ML BOTTLE IV PRN (07:56)
[2018-12-11] MEDS: MAGNESIUM HYDROXIDE 30 ML ORAL.SUSP PO SCH (08:09)
[2018-12-11] MEDS: ENOXAPARIN 40 MG/0.4 ML SYRINGE SQ SCH (08:24)
[2018-12-11] MEDS: FAMOTIDINE/PF 20 MG/2 ML VIAL IV SCH (08:24)
[2018-12-11] MEDS: ACYCLOVIR 400 MG TABLET PO SCH ×4 (08:25→16:19)
[2018-12-11] MEDS: CIPROFLOXACIN 500 MG TABLET PO SCH (08:25)
[2018-12-11] MEDS: NYSTATIN 500,000 UNITS/5 ML ORAL.SUSP SSW SCH ×3 (08:25→18:02)
[2018-12-11] MEDS: DOCUSATE SODIUM 100 MG CAPSULE PO SCH (08:26)
[2018-12-11] MEDS: MULTIVIT,THER IRON,CA,FA & MIN 1 TABLET PO SCH (08:26)
[2018-12-11] MEDS: CELECOXIB 200 MG CAPSULE PO SCH (08:26)
[2018-12-11] MEDS: POLYETHYLENE GLYCOL 3350 17 GM PACKET PO SCH (09:18)
[2018-12-11] MEDS: ONDANSETRON 4 MG ODT TABLET SL PRN ×2 (10:07→16:20)
[2018-12-11] MEDS ORDERED: fentaNYL 250 MCG/5 ML VIAL IV ONE (10:27)
[2018-12-11] MEDS ORDERED: KETOROLAC 30 MG/ML VIAL IV ONE (10:27)
[2018-12-11] MEDS ORDERED: ONDANSETRON 4 MG/2 ML VIAL IV ONE (10:27)
[2018-12-11] MEDS ORDERED: FAMOTIDINE/PF 20 MG/2 ML VIAL IV ONE (10:27)
[2018-12-11] MEDS ORDERED: KETAMINE 100 MG/ML ML IV ONE (10:27)
[2018-12-11] MEDS ORDERED: MIDAZOLAM 5 MG/5 ML VIAL IV ONE (10:27)
[2018-12-11] MEDS ORDERED: HYDROmorphone 2 MG/ML VIAL IV ONE (10:27)
[2018-12-11] MEDS ORDERED: LIDOCAINE HCL/PF 100 MG/5 ML SYRINGE IV ONE (10:27)
[2018-12-11] MEDS ORDERED: DEXAMETHASONE 10 MG/ML VIAL IV ONE (10:27)
[2018-12-11] MEDS ORDERED: GLYCOPYRROLATE 0.2 MG/ML VIAL IV ONE (10:27)
[2018-12-11] MEDS ORDERED: PROPOFOL 200 MG/20 ML VIAL IV ONE (10:27)
--- NOTE | 2018-12-11 14:49 | Discharge Summary ---
Providers - Providers Patient information: Note initiated : 12/11/18 at 2:45 pm Service Date, if different from initiated Date: [] Patient: Naomi Corrales 27 y/o F admitted on 11/29/18 for right lower abd pain. Chief Complaint: [] Date of admission: 11/29/18 Discharge date: 12/11/18 Attending physician: [facility] hospitalist service infectious disease service Hospitalization Hospital course: 27-year-old female admitted on 30 December with right lower quadrant pain and a 5 day history of abdominal pain nausea fever. Evaluation revealed perforated appendix with localized peritonitis. Attempted laparoscopic appendectomy was undertaken but was converted to open. Appendectomy with drainage was done.. In the postoperative period the patient had continued to have fevers to 102. All cultures initially were negative. The wound started draining purulent drainage and the wound was explored at the bedside on 03 December where a large volume of purulent material was encountered. Initial exploration under anesthesia was carried out on 05 May with debridement of necrotic fascia while excision and irrigation. Local care was carried out and the patient became febrile. Cultures of the drainage from 05 December revealed no growth initially.ffollow-up cultures however revealed heavy growth of Bacteroides fragilis and Haemophilus species.. She's been afebrile since the sixth. Another node is that in spite of her high fevers the patient did not develop significant leukocytosis above 10,000 during this whole hospitalization. The mother has a similar problem which she cannot now white count in response to infection. The mother has been evaluated for myelodysplastic syndrome in her evaluation has been negative. Patient is clinically stable at this time. Wound VAC was placed on yesterday and she is going exceptionally well. She will be discharged on ciprofloxacin and Metronidazole for 2 weeks.. Discharge diagnosis: acute appendicitis with abscess Secondary discharge diagnosis: Fasciitis of abdominal incision with febrile course and infection due to Bacteroides fragilis and Haemophilus species Reason for admission: acute appendicitis with perforation Procedures: Open appendectomy with drainage Warm exploration under anesthesia with surgical debridement and irrigation Surgical debridement of abdominal incision with a wound VAC placement Complications: None Exam Temp Pulse Resp BP Pulse Ox 98.2 F 81 18 109/69 96 12/11/18 12:00 12/11/18 12:00 12/11/18 12:00 12/11/18 12:00 12/11/18 12:00 - General physical appearance well developed, well nourished, no distress - Eyes PERRL, normal ocular movement - ENT normal pinna, normal nares, normal mucosa, no hearing loss, no congestion, other (healing herpetic lesion lower lip on the right) - Head Head exam IM: Present: atraumatic, normocephalic - Neck no masses, no bruits, trachea midline, no lymphadenopathy, no venous distension - Cardiovascular Cardiovascular exam IM: Present: normal rate and rhythm - Respiratory normal expansion, normal respiratory effort, clear to percussion, clear to auscultation - Abdomen Abdomen: Present: soft, tender ( minimal tenderness around the operative site without evidence of cellulitis), bowel sounds Hernia: Present: none - Genitourinary Present: normal external genitalia - Integumentary Present: no rash, no growths, no abnormal pigmentation - Neurologic Present: normal coordination, normal sensation - Musculoskeletal Present: normal gait, normal posture - Psychiatric Present: oriented to time, oriented to person, oriented to place, speech is norm al, memory intact Discharge Plan - Patient/Caregiver Discharge Instructions Activity: increase activity as tolerated Diet: Regular Diet Additional Instructions: Home health with wound VAC change every 72 hours Prescriptions: RX: Acyclovir [Zovirax] 400 mg PO TID #20 tab RX: Celecoxib [Celebrex] 100 mg PO BID #20 cap RX: Ciprofloxacin [Cipro] 500 mg PO BID #30 tab RX: metroNIDAZOLE [Flagyl] 500 mg PO Q8H #40 tab RX: oxyCODONE [Oxycontin] 10 mg PO Q4H PRN #40 tab PRN Reason: Pain Level > 6 - Follow up Plan Follow up with: Reginaldo Calvert MD [Physician] - 12/20/18 2:45 pm Vidal Gavin ARNP [Primary Care Provider] - Carine Eid MD [Physician] - 12/27/18 10:30 am Disposition: Home Health Service Prognosis: Good Rehab Potential: Good I certify that the patient requires SNF services.: No Overall status at discharge: patient is progressing back to baseline Pending Studies Resuscitation Status Full Code Diet Regular Diet Start Thu 11 1540 Acyclovir (Zovirax) 200 mg PO 5XD GLADYS Last Admin: 12/11/18 12:13 Dose: 200 mg Documented by: Admin: 12/11/18 08:25 Dose: 200 mg Documented by: Admin: 12/10/18 20:11 Dose: 200 mg Documented by: Admin: 12/10/18 17:32 Dose: 200 mg Documented by: Admin: 12/10/18 14:32 Dose: 200 mg Documented by: Admin: 12/10/18 13:11 Dose: Not Given Documented by: Admin: 12/10/18 09:51 Dose: Not Given Documented by: Admin: 12/09/18 20:44 Dose: 200 mg Documented by: Admin: 12/09/18 16:28 Dose: 200 mg Documented by: Admin: 12/09/18 13:33 Dose: 200 mg Documented by: Admin: 12/09/18 12:24 Dose: 200 mg Documented by: Admin: 12/09/18 08:01 Dose: 200 mg Documented by: Admin: 12/08/18 20:17 Dose: 200 mg Documented by: Admin: 12/08/18 17:28 Dose: 200 mg Documented by: Admin: 12/08/18 14:48 Dose: 200 mg Documented by: Admin: 12/08/18 12:21 Dose: 200 mg Documented by: Admin: 12/08/18 08:48 Dose: 200 mg Documented by: Admin: 12/07/18 20:39 Dose: 200 mg Documented by: [email or web address] Admin: 12/07/18 17:33 Dose: 200 mg Documented by: [email or web address] Admin: 12/07/18 14:15 Dose: 200 mg Documented by: [email or web address] Admin: 12/07/18 11:44 Dose: 200 mg Documented by: [email or web address] Celecoxib (Celebrex) 200 mg PO DAILY [facility] Last Admin: 12/11/18 08:26 Dose: 200 mg Documented by: Admin: 12/10/18 09:51 Dose: Not Given Documented by: Admin: 12/09/18 08:26 Dose: 200 mg Documented by: Admin: 12/08/18 12:11 Dose: 200 mg Documented by: ABEL Ciprofloxacin (Cipro) 500 mg PO BID [facility] Admin: 12/11/18 08:25 Dose: 500 mg Documented by: Admin: 12/10/18 20:11 Dose: 500 mg Documented by: Admin: 12/10/18 09:51 Dose: Not Given Documented by: Admin: 12/09/18 20:44 Dose: 500 mg Documented by: ROSE Docusate Sodium (Colace) 100 mg PO BID [facility] Admin: 12/11/18 08:26 Dose: 100 mg Documented by: Admin: 12/10/18 20:11 Dose: 100 mg Documented by: Admin: 12/10/18 09:51 Dose: Not Given Documented by: Admin: 12/09/18 20:44 Dose: 100 mg Documented by: Admin: 12/09/18 08:26 Dose: 100 mg Documented by: Admin: 12/08/18 20:18 Dose: 100 mg Documented by: Admin: 12/08/18 08:49 Dose: 100 mg Documented by: Admin: 12/07/18 20:39 Dose: 100 mg Documented by: Admin: 12/07/18 08:58 Dose: 100 mg Documented by: MARIA INES Admin: 12/06/18 20:58 Dose: 100 mg Documented by: Admin: 12/06/18 08:44 Dose: 100 mg Documented by: MARIA INES Admin: 12/05/18 21:28 Dose: 100 mg Documented by: JACQUIE Enoxaparin Sodium (Lovenox) 40 mg SQ DAILY [facility] Admin: 12/11/18 08:24 Dose: 40 mg Documented by: Admin: 12/10/18 09:51 Dose: Not Given Documented by: Admin: 12/09/18 08:25 Dose: 40 mg Documented by: Admin: 12/08/18 08:49 Dose: 40 mg Documented by: Admin: 12/07/18 08:59 Dose: 40 mg Documented by: MARIA INES Admin: 12/06/18 08:45 Dose: 40 mg Documented by: MARIA INES Famotidine (Pepcid) 20 mg IV Q12 [facility] Admin: 12/11/18 08:24 Dose: 20 mg Documented by: Admin: 12/10/18 20:11 Dose: 20 mg Documented by: Admin: 12/10/18 09:15 Dose: 20 mg Documented by: Admin: 12/09/18 20:45 Dose: 20 mg Documented by: Admin: 12/09/18 08:26 Dose: 20 mg Documented by: Admin: 12/08/18 20:18 Dose: 20 mg Documented by: Admin: 12/08/18 08:49 Dose: 20 mg Documented by: Admin: 12/07/18 20:39 Dose: 20 mg Documented by: Admin: 12/07/18 08:59 Dose: 20 mg Documented by: MARIA INES Admin: 12/06/18 20:58 Dose: 20 mg Documented by: Admin: 12/06/18 08:44 Dose: 20 mg Documented by: MARIA INES Admin: 12/05/18 21:28 Dose: 20 mg Documented by: JACQUIE Hydromorphone HCl (Dilaudid Medical Assistant Ob Gyn) 30 mg IV UD PRN; Protocol PRN Reason: Pain Last Admin: 12/08/18 08:57 Dose: 30 mg Documented by: ABEL Potassium Chloride/Dextrose/Sod Cl (Dextrose 5%-1/2ns W/20meq Kcl) 1,000 mls @ 75 mls/hr IV .[id number] [facility] Last Admin: 12/11/18 13:06 Dose: Not Given Documented by: Infusion: 12/11/18 09:45 Dose: 75 mls/hr Documented by: Infusion: 12/11/18 08:30 Dose: 0 mls/hr Documented by: Admin: 12/11/18 01:20 Dose: 75 mls/hr Documented by: Infusion: 12/11/18 01:20 Dose: 75 mls/hr Documented by: Admin: 12/10/18 12:13 Dose: 75 mls/hr Documented by: Infusion: 12/10/18 09:00 Dose: 0 mls/hr Documented by: Admin: 12/09/18 17:55 Dose: 75 mls/hr Documented by: Infusion: 12/09/18 17:53 Dose: 0 mls/hr Documented by: Admin: 12/09/18 16:39 Dose: Not Given Documented by: Admin: 12/09/18 03:23 Dose: 75 mls/hr Documented by: Infusion: 12/09/18 03:23 Dose: 75 mls/hr Documented by: Admin: 12/08/18 14:49 Dose: 75 mls/hr Documented by: Infusion: 12/08/18 14:49 Dose: 75 mls/hr Documented by: Admin: 12/08/18 03:05 Dose: 75 mls/hr Documented by: Infusion: 12/08/18 01:02 Dose: 75 mls/hr Documented by: Admin: 12/07/18 11:42 Dose: 75 mls/hr Documented by: [email or web address] Infusion: 12/07/18 11:42 Dose: 75 mls/hr Documented by: [email or web address] Admin: 12/06/18 22:49 Dose: 75 mls/hr Documented by: Infusion: 12/06/18 21:27 Dose: 75 mls/hr Documented by: Admin: 12/06/18 08:07 Dose: 75 mls/hr Documented by: [email or web address] Infusion: 12/06/18 08:07 Dose: 75 mls/hr Documented by: [email or web address] Admin: 12/05/18 18:58 Dose: 75 mls/hr Documented by: ABEL Sodium Chloride (Sodium Chloride 0.9%) 250 mls @ 20 mls/hr IV .[id number] [facility] Admin: 12/11/18 13:06 Dose: Not Given Documented by: Admin: 12/11/18 03:58 Dose: Not Given Documented by: Admin: 12/10/18 13:24 Dose: Not Given Documented by: Admin: 12/10/18 00:06 Dose: Not Given Documented by: Admin: 12/09/18 14:00 Dose: Not Given Documented by: Admin: 12/08/18 22:58 Dose: Not Given Documented by: Admin: 12/08/18 14:49 Dose: Not Given Documented by: [email or web address] Admin: 12/07/18 20:52 Dose: Not Given Documented by: Admin: 12/07/18 08:08 Dose: Not Given Documented by: MARIA INES Admin: 12/06/18 19:51 Dose: Not Given Documented by: Admin: 12/06/18 10:28 Dose: Not Given Documented by: MARIA INES Admin: 12/05/18 19:20 Dose: Not Given Documented by: LATFabricio Acetaminophen (Ofirmev) 650 mg in 65 mls @ 130 mls/hr IV Q6HP PRN PRN Reason: PAIN/FEVER > 101 Last Infusion: 12/11/18 08:26 Dose: 0 mls/hr Documented by: Admin: 12/11/18 07:56 Dose: 130 mls/hr Documented by: Infusion: 12/09/18 21:39 Dose: 0 mls/hr Documented by: Admin: 12/09/18 21:09 Dose: 130 mls/hr Documented by: Infusion: 12/09/18 14:00 Dose: 0 mls/hr Documented by: Admin: 12/09/18 13:29 Dose: 130 mls/hr Documented by: Infusion: 12/09/18 08:13 Dose: 0 mls/hr Documented by: Admin: 12/09/18 07:33 Dose: 130 mls/hr Documented by: Infusion: 12/08/18 22:00 Dose: 0 mls/hr Documented by: Admin: 12/08/18 21:19 Dose: 130 mls/hr Documented by: Infusion: 12/07/18 23:14 Dose: 130 mls/hr Documented by: Infusion: 12/07/18 22:44 Dose: 130 mls/hr Documented by: Admin: 12/07/18 22:43 Dose: 100 mls/hr Documented by: Infusion: 12/07/18 17:00 Dose: 0 mls/hr Documented by: MARIA INES Admin: 12/07/18 16:13 Dose: 100 mls/hr Documented by: MARIA INES Infusion: 12/07/18 16:13 Dose: 0 mls/hr Documented by: MARIA INES Infusion: 12/07/18 08:08 Dose: 0 mls/hr Documented by: MARIA INES Admin: 12/07/18 07:40 Dose: 130 mls/hr Documented by: [email or web address] Infusion: 12/06/18 22:45 Dose: 130 mls/hr Documented by: [email or web address] Admin: 12/06/18 22:15 Dose: 130 mls/hr Documented by: Infusion: 12/06/18 13:52 Dose: 0 mls/hr Documented by: MARIA INES Admin: 12/06/18 13:00 Dose: 130 mls/hr Documented by: MARIA INES Iron Carb/Multivit/Dispatcher Electric Power/Folic Acid (Multivitamin W/Minerals) 1 tab PO DAILY [facility] Last Admin: 12/11/18 08:26 Dose: 1 tab Documented by: Admin: 12/10/18 09:52 Dose: Not Given Documented by: Admin: 12/09/18 08:26 Dose: 1 tab Documented by: Admin: 12/08/18 09:03 Dose: 1 tab Documented by: Admin: 12/07/18 08:58 Dose: 1 tab Documented by: MARIA INES Admin: 12/06/18 08:45 Dose: 1 tab Documented by: MARIA INES Lorazepam (Ativan) 0.5 mg PO Q12HP PRN PRN Reason: ANXIETY/SEDATION Last Admin: 12/09/18 12:39 Dose: 0.5 mg Documented by: SHILOH Magnesium Hydroxide (Milk Of Magnesia) 30 ml PO DAILY [facility] Last Admin: 12/11/18 08:09 Dose: 30 ml Documented by: Admin: 12/10/18 09:52 Dose: Not Given Documented by: Admin: 12/09/18 08:25 Dose: 30 ml Documented by: Admin: 12/08/18 09:00 Dose: 30 ml Documented by: Admin: 12/07/18 08:59 Dose: 30 ml Documented by: MARIA INES Admin: 12/06/18 08:44 Dose: 30 ml Documented by: MARIA INES Metoclopramide HCl (Reglan) 5 mg PO Q6H [facility] Last Admin: 12/11/18 12:13 Dose: 5 mg Documented by: Admin: 12/11/18 05:57 Dose: 5 mg Documented by: Admin: 12/10/18 23:28 Dose: 5 mg Documented by: Admin: 12/10/18 17:32 Dose: 5 mg Documented by: Admin: 12/10/18 14:26 Dose: 5 mg Documented by: Admin: 12/10/18 05:06 Dose: 5 mg Documented by: Admin: 12/10/18 00:05 Dose: 5 mg Documented by: Admin: 12/09/18 17:51 Dose: 5 mg Documented by: Admin: 12/09/18 12:48 Dose: 5 mg Documented by: Admin: 12/09/18 05:44 Dose: 5 mg Documented by: Admin: 12/09/18 00:10 Dose: 5 mg Documented by: Admin: 12/08/18 17:38 Dose: 5 mg Documented by: Admin: 12/08/18 12:10 Dose: 5 mg Documented by: Admin: 12/08/18 05:34 Dose: 5 mg Documented by: Admin: 12/08/18 00:32 Dose: 5 mg Documented by: Admin: 12/07/18 17:37 Dose: 5 mg Documented by: MARIA INES Admin: 12/07/18 11:44 Dose: 5 mg Documented by: MARIA INES Admin: 12/07/18 06:24 Dose: 5 mg Documented by: Admin: 12/07/18 00:17 Dose: 5 mg Documented by: Admin: 12/06/18 18:20 Dose: 5 mg Documented by: MARIA INES Admin: 12/06/18 12:53 Dose: 5 mg Documented by: MARIA INES Admin: 12/06/18 05:48 Dose: 5 mg Documented by: Admin: 12/06/18 00:26 Dose: 5 mg Documented by: JACQUIE Metronidazole (Flagyl) 500 mg PO Q8H GLADYS Last Admin: 12/11/18 13:32 Dose: 500 mg Documented by: Admin: 12/11/18 05:58 Dose: 500 mg Documented by: Admin: 12/10/18 23:29 Dose: 500 mg Documented by: Admin: 12/10/18 17:31 Dose: 500 mg Documented by: Admin: 12/10/18 05:06 Dose: 500 mg Documented by: Admin: 12/09/18 21:09 Dose: 500 mg Documented by: ROSE Nystatin (Nystatin) 500,000 units SSW QID GLADYS Last Admin: 12/11/18 13:32 Dose: 500,000 units Documented by: Admin: 12/11/18 08:25 Dose: 500,000 units Documented by: Admin: 12/10/18 20:11 Dose: 500,000 units Documented by: Admin: 12/10/18 17:32 Dose: 500,000 units Documented by: Admin: 12/10/18 14:28 Dose: 500,000 units Documented by: Admin: 12/10/18 09:52 Dose: Not Given Documented by: Admin: 12/09/18 20:44 Dose: 500,000 units Documented by: Admin: 12/09/18 16:28 Dose: 500,000 units Documented by: Admin: 12/09/18 13:29 Dose: 500,000 units Documented by: Admin: 12/09/18 08:25 Dose: 500,000 units Documented by: Admin: 12/08/18 20:17 Dose: 500,000 units Documented by: Admin: 12/08/18 17:28 Dose: 500,000 units Documented by: Admin: 12/08/18 12:22 Dose: 500,000 units Documented by: LATFabricio Admin: 12/08/18 09:01 Dose: 500,000 units Documented by: Admin: 12/07/18 20:39 Dose: 500,000 units Documented by: Admin: 12/07/18 15:42 Dose: 500,000 units Documented by: [email or web address] Ondansetron HCl (Zofran Odt) 4 mg SL Q4-6HP PRN PRN Reason: Nausea And Vomiting Last Admin: 12/11/18 10:07 Dose: 4 mg Documented by: Admin: 12/10/18 16:46 Dose: 4 mg Documented by: Admin: 12/10/18 12:54 Dose: 4 mg Documented by: Admin: 12/10/18 09:14 Dose: 4 mg Documented by: Admin: 12/09/18 08:25 Dose: 4 mg Documented by: Admin: 12/08/18 14:48 Dose: 4 mg Documented by: Admin: 12/08/18 03:05 Dose: 4 mg Documented by: Admin: 12/07/18 08:58 Dose: 4 mg Documented by: MARIA INES Admin: 12/06/18 10:25 Dose: 4 mg Documented by: MARIA INES Admin: 12/05/18 19:19 Dose: 4 mg Documented by: ABEL Oxycodone/Acetaminophen (Percocet 5-325 Mg) 1 tab PO Q4HP PRN PRN Reason: PAIN LEVEL 3-6 Last Admin: 12/11/18 12:17 Dose: 1 tab Documented by: Admin: 12/11/18 08:25 Dose: 1 tab Documented by: Admin: 12/11/18 03:45 Dose: 1 tab Documented by: Admin: 12/11/18 01:18 Dose: 1 tab Documented by: Admin: 12/10/18 20:20 Dose: 1 tab Documented by: Admin: 12/10/18 17:32 Dose: 1 tab Documented by: LINDSAY Polyethylene Glycol (Miralax) 17 gm PO DAILY [facility] Last Admin: 12/11/18 09:18 Dose: 17 gm Documented by: Admin: 12/10/18 09:52 Dose: Not Given Documented by: Admin: 12/09/18 08:26 Dose: 17 gm Documented by: Admin: 12/08/18 12:12 Dose: 17 gm Documented by: Admin: 12/07/18 08:59 Dose: 17 gm Documented by: MARIA INES Admin: 12/06/18 11:12 Dose: 17 gm Documented by: MARIA INES Sodium Chloride (Saline Flush) 10 ml IV Q8 GLADYS Last Admin: 12/11/18 05:58 Dose: Not Given Documented by: Admin: 12/10/18 20:12 Dose: Not Given Documented by: Admin: 12/10/18 14:28 Dose: 10 ml Documented by: Admin: 12/10/18 05:06 Dose: Not Given Documented by: Admin: 12/09/18 20:55 Dose: Not Given Documented by: Admin: 12/09/18 14:12 Dose: Not Given Documented by: Admin: 12/09/18 05:45 Dose: Not Given Documented by: Admin: 12/08/18 22:58 Dose: Not Given Documented by: Admin: 12/08/18 14:48 Dose: Not Given Documented by: Admin: 12/08/18 05:34 Dose: Not Given Documented by: Admin: 12/07/18 20:43 Dose: 10 ml Documented by: Admin: 12/07/18 13:13 Dose: 10 ml Documented by: MARIA INES Admin: 12/07/18 06:25 Dose: 10 ml Documented by: Admin: 12/06/18 22:00 Dose: 10 ml Documented by: Admin: 12/06/18 12:55 Dose: 10 ml Documented by: MARIA INES Admin: 12/06/18 05:48 Dose: 10 ml Documented by: Admin: 12/05/18 21:28 Dose: 10 ml Documented by: JACQUIE Shift Summary 12/11/18 04:46 Shift Summary by Lesia Pederson Addendum entered by Lesia Pederson 12/11/18 04:58: voided 350mls dark jelena urine this AM, fluids encouraged Original Note: up ad reanna in room, used 2mg of dilaudid 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 small amount sang. drg noted, no leaks t/o night, outpt. woundvac here so can be applied prior to d/c home today, MIL at bedside tonight assisting with cares, SR HR 80-90'S Initialized on 12/11/18 04:46 - END OF NOTE
--- NOTE | 2018-12-21 11:37 | Operative Note ---
DATE OF OPERATION: 12/10/2018 PREOPERATIVE DIAGNOSIS: Wound infection with fasciitis. POSTOPERATIVE DIAGNOSIS: Wound infection with fasciitis. PROCEDURE: Wound debridement with placement of wound V.A.C. system. SURGEON: Carine Eid MD FINDINGS: Extensive wound with tunneling superiorly in the subcutaneous plane 8 cm and tunneling subfascially 9 cm, tunneling inferiorly in subcutaneous tissue 4.5 cm. Total thickness dimension of the wound were 8 x 6 x 2.5 cm. Granulation was 50%. 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 DESCRIPTION OF PROCEDURE: Under general anesthesia, the old dressing was removed and the wound was vigorously scrubbed using a scrub brush and Hibiclens. There was extensive necrosis of the fascia which was removed by Metzenbaum scissors and electrocautery. All nonviable tissue was removed. The tunnel in the subcutaneous and subfascial plane was curetted using a sharp curet. Copious irrigation with bacitracin solution was carried out. At this time, the entire wound base was clean. The wound was then dressed using a wound V.A.C. The fascia was covered with white foam. This was covered with williamson foam. The occlusive dressing was placed and the suction was placed on 125 cm. There was a 100% seal without leak. The patient tolerated this procedure well. She was awakened, transferred to a bed and taken to the postanesthetic care unit in stable, satisfactory condition. LCS:cecily Job ID: [id number] Doc ID: [id number] Carine Eid M.D.
== END 2018-12-11 17:10 | disposition home health service (06) | DRG 329 ==
LOC: ED 17:43 → SUR 19:30 → ICU 19:40
PROVIDERS: ADMIT Surgery; ATTEND Family Medicine Adult Medicine
PROC: LAPAPPY (ICD-10-PCS; 2018-11-29 19:53)